=== PATIENT | female | born 1945 | race Caucasian/White ===

== ENCOUNTER 2016-07-18 19:37 | Emergency (ER) | payer OTHER, MEDICARE ==
[2016-07-18 20:00] VITALS: TEMP 98.6; O2SAT 94
--- NOTE | 2016-07-18 20:01 | UCPHY ---
H & P Patient Type: New HPI/ROS: CHIEF COMPLAINT: Diarrhea, abdominal bloating, N/V. HISTORY OF PRESENT ILLNESS: The patient is a 71-year-old female with a history of atrial fibrillation on anticoagulants that some times give her a little loose stool. Presents with diarrhea, nausea, and abdominal bloating since Monday (4th day now). Really no pain per se. She vomited for the first 12 hours of symptoms but not since, not really nauseated either. She is still having an episode of diarrhea every time she eats , be it liquids or solids. She denies bloody or black stool, though anus is raw and sees streaks of blood on the tissue.. She denies abdominal pain, fever, urinary symptoms. No BRBPR or black stools. She is anticoagulated on Eliquis. She does note having a longer-lasting afib episode last week than usual. She has not taken antibiotics in the last 3 months. Though thinks she may hav done so 4-5 months ago. No known exposure. No travel No surgery No hospitalizations No prior C. Diff No bad water or food sources. REVIEW OF SYSTEMS: Constitutional: No fever, no chills. Eyes: No diplopia, feels a little weak at times, no feeling faint or tunnel vision. ENT: No sore throat. Cardiovascular: No chest pain, no palpitations. Respiratory: No cough, no shortness of breath, no wheezing. Gastrointestinal: As above. Genitourinary: No hematuria or frequency. Musculoskeletal: No back pain. Skin: No rashes. Neurological: No headache. 10 point ROS otherwise negative Past Medical/Surgical History: Atrial fibrillation, diabetes, macular degeneration, hypertension. Social History: Nonsmoker. Smoking Status: Never smoked Physical Exam: General Appearance: Alert, no distress. Afebrile. Normal phonation. No respiratory distress. Eyes: Pupils equal and round no pallor or injection. No icterus ENT, Mouth: Mucous membranes moist. Pharynx not erythematous and without exudate. TM Clear. Neck: No adenopathy. Supple. No JVD. Trachea in midline. Respiratory: There are no retractions, lungs are clear to auscultation. Cardiovascular: Regular rate and rhythm. Abdomen: Soft and nontender, no masses, bowel sounds normal. Femoral pulses equal. Neurological: Ox3. No motor weakness. Sensation intact. Gait nl. Skin: Warm and dry, no rashes. Musculoskeletal: No joint swelling. Extremities: No edema. Homans sign negative. No cords. Psychiatric: Patient is oriented X 3, there is no agitation Constitutional: Initial Vital Signs Temperature (C) 37 C 07/18/16 19:57 Heart Rate 77 07/18/16 19:57 Respiratory Rate 18 07/18/16 19:57 Blood Pressure 134/60 H 07/18/16 19:57 O2 Sat (%) 94 07/18/16 19:57 O2 Delivery Mode Room Air Allergies/Adverse Reactions: ciprofloxacin [From Cipro] Allergy (Verified 08/29/11 19:14) ciprofloxacin HCl [From Cipro] Allergy (Verified 08/29/11 19:14) nitrofurantoin [From Macrobid] Allergy (Verified 08/29/11 19:13) nitrofurantoin macrocrystalline [From Macrobid] Allergy (Verified 08/29/11 19:13 ) Penicillins Allergy (Verified 08/29/11 19:13) CONTRAST DYE Allergy (Uncoded 08/29/11 19:14) Home Medications: Medication Instructions Recorded AMLODIPINE BESYLATE/BENAZEPRIL 1 each PO DAILY 08/29/11 [Lotrel 10-20 mg] Metoprolol Succinate 100 mg PO 08/29/11 Rosuvastatin Calcium [Crestor] 10 mg PO 08/29/11 Dronedarone HCl [Multaq 400 mg (*)] 07/18/16 Eliquis 07/18/16 Hydrochlorothiazide 07/18/16 Medical Decision Making - Diagnostics EKG Interpretation: The 12 lead EKG was interpreted by myself. See hard copy and/or "tracemaster" electronic copy for interpretation. Sinus rhythm rate 70. Nonspecific changes V4 -V6. ED Course/Re-evaluation: 71-year-old female presents with 3 days of diarrhea and abdominal bloating. She admits associated nausea and had vomiting for the first 12 hours. Her exam is benign. She has no abdominal pain, though mild tenderness in RUQ. She denies fever, cough, shortness of breath, chest pain. I feel this probably represents a viral diarrheal illness. We will check blood work for electrolyte abnormalities secondary to dehydration. An IV was established and labs ordered. Plan for rehydration with IV fluids for volume depletion. EKG obtained to check QT and other intervals.. I reviewed the patient's laboratory studies. AST and ALT mildly elevated. WBC normal. 2227: I spoke to the patient's nurse who performed a rectal exam. She reports the patient has an inflamed and bleeding hemorrhoid. Occult blood on stool neg = pt OK to take Immodium. 2233: Reassessed patient. We discussed laboratory results so far. She is feeling better but is still feeling bloated. She understands that she needs to continue drinking fluids. No indication for CT at this time, I do not think this represent ischemic bowel or meseneteri ischemia or diverticulitis. Differential Diagnosis: DDX includes, not limited to: Divericulitis, mesenteric ischemia, malabsorption syndrome, viral illness, bacterial dysentery, GI Bleed. - Data Points Laboratory Results: Laboratory Results 07/18/16 20:40 07/18/16 20:40 Microbiology Results: MICROBIOLOGY 07/18/16 22:40 Urine,Clean Catch Urine Culture - Preliminary Medications Given: Discontinued Medications Sodium Chloride (Ns) 1,000 mls @ 0 mls/hr IV ONCE ONE PRN Reason: As Directed Stop: 07/18/16 20:04 Last Admin: 07/18/16 20:50 Dose: 1,000 mls Departure - Departure Disposition: Home, Routine, Self-Care Clinical Impression: Diarrhea Qualifiers: Diarrhea type: presumed infectious Qualified Code(s): A09 - Infectious gastroenteritis and colitis, unspecified Condition: Good Instructions: Acute Diarrhea (ED) Additional Instructions: Follow up with your primary care provider for reevaluation. Recheck in 2 days Drink plenty of fluids, especially electrolyte drinks such as Gatorade. Advance diet as tolerated - toast and eggs are a good start as well as juice It is OK to take IMMODIUM as per the package Return for any serious worsening of condition. Referrals: INGRID REESE [Primary Care Provider] - 1-2 days without fail - PQRS PQRS Measurement: 134: Depression screening and followup, PRIME MD-PHQ2 (12 years and older) Over the last 2 weeks, how often have you been bothered by any of the following problems? 1. Feeling down, depressed, or hopeless? 2. Little interest or pleasure in doing things? [Patient answered no to both 1 and 2] [Patient answered yes to at least 1, referred to PCP for further evaluation.] [Not done because] [altered mental status] [patient refused] [critically ill.] 130: Documentation of medications. [Reviewed all patient medications, doses, route and frequency.] [Unable to obtain meds due to] [critical illness] [altered mental status] [ patient did not know]. 226: Do you smoke? [No.] [Yes, counseled to stop.] 47: 65 and older: Advanced care planning. Patient designates surrogate decision maker as [parent] [spouse] [ ]. [Patient refused.] [Patient has advanced directive.] 51: 18 years old and older with diagnosis of COPD, spirometry performance. [Patient has no history of COPD] [Spirometry not performed; equipment not available.] 52: 18 years old and older with COPD and symptoms of COPD or FEV1<60% predicted prescribed a B Agonist. [Patient has no history of COPD] [Spirometry not performed; equipment not available.] Report Scribed for: Tripp Cosby Report Scribed by: Merritt Katz Date of Report: 07/18/16 Time of Report: 20:01
[2016-07-18] MEDS ORDERED: NS 1,000 ML IV ONE (20:03)
--- NOTE | 2016-07-18 20:29 | CPEKG ---
Heart Rate: 70 RR Interval: 857 P-R Interval: 200 QRSD Interval: 84 QT Interval: 436 QTC Interval: 471 P Dublin: 60 QRS Dublin: 20 T Wave Dublin: -14 EKG Severity - BORDERLINE ECG - EKG Impression: SINUS RHYTHM EKG Impression: BORDERLINE T ABNORMALITIES, DIFFUSE LEADS Electronically Signed By: Tripp Cosby 19-Jul-2016 00:24:16
[2016-07-18 21:36] LABS: ALANINE AMINOTRANSFERASE 67 IU/L (9-52); ALBUMIN 4.1 g/dL (3.5-5.0); ALKALINE PHOSPHATASE 73 IU/L (38-126); ANION GAP 18 mEq/L (8-16); ASPARTATE AMINOTRANSFERASE 90 IU/L (14-46); BILIRUBIN,TOTAL 0.9 mg/dL (0.1-1.4); BILIRUBIN-CONJUGATED 0.3 mg/dL (0.0-0.5); BILIRUBIN-UNCONJUGATED 0.6 mg/dL (0.0-1.1); CALCIUM 8.6 mg/dL (8.5-10.4); CARBON DIOXIDE 24 mEq/l (22-31); CHLORIDE 98 mEq/L (97-110); CREATININE 0.9 mg/dL (0.6-1.0); GLOMERULAR FILTRATION RATE > 60; GLUCOSE 130 mg/dL (70-100); POTASSIUM 3.4 mEq/L (3.5-5.2); SODIUM 140 mEq/L (134-144); TOTAL PROTEIN 7.9 g/dL (6.3-8.2)
[2016-07-18 21:37] LABS: % IMMATURE GRANULYOCYTES 0.2 % (0.0-1.1); ABSOLUTE IMMATURE GRANULOCYTES 0.01 10^3/uL (0.00-0.10); ADD DIFF? NO; ADD MORPH? NO; ADD SCAN? NO; ATYPICAL LYMPHOCYTE FLAG 10 (0-99); FRAGMENT RBC FLAG 0 (0-99); HEMATOCRIT 46.8 % (38.0-47.0); HEMOGLOBIN 16.1 g/dL (12.6-16.3); LEFT SHIFT FLG 0 (0-99); LIPEMIA HEMOLYSIS FLAG 90 (0-99); MEAN CELL HEMOGLOBIN 29.7 pg (27.9-34.1); MEAN CELL HEMOGLOBIN CONCENTR. 34.4 g/dL (32.4-36.7); MEAN CELL VOLUME 86.2 fL (81.5-99.8); MEAN PLATELET VOLUME 12.4 fL (8.7-11.7); PLATELET CLUMPS FLAG 0 (0-99); PLATELET COUNT 207 10^3/uL (150-400); RED BLOOD CELL COUNT 5.43 10^6/uL (4.18-5.33); RED CELL DISTRIBUTION WIDTH 12.3 % (11.5-15.2)
[2016-07-18 22:11] LABS: COLOR YELLOW; LEUKOCYTE ESTERASE,URINE NEGATIVE (NEGATIVE); NITRITE,URINE NEGATIVE (NEGATIVE)
[2016-07-18 22:39] LABS: BACTERIA 2+ /hpf (NONE SEEN); HYALINE CASTS 50-182 /lpf (0-1); MUCUS 3+ /lpf (NONE-1+)
[2016-07-18 23:24] VITALS: BP 128/72; PULSE 76; RESP 14
== END 2016-07-18 23:15 | disposition home or self-care (01) ==
LOC: CED 19:37
DX: A09 Infectious gastroenteritis and colitis, unspecified (principal); I48.91 Unspecified atrial fibrillation; E11.9 Type 2 diabetes mellitus without complications; I10 Essential (primary) hypertension; H35.30 Unspecified macular degeneration; Z79.01 Long term (current) use of anticoagulants
CPT/HCPCS: 93005; 96360; G0463; 80048-PO; 80076-PO; 81003-PO; 81015-PO; 82270-PO; 83605-PO; 83690-PO; 85025-PO; 93010-PO; 96361-PO; 99203-PO

== ENCOUNTER → 2016-12-02 | Outpatient (CLI) | payer OTHER, MEDICARE | LOC: BHFA 14:00 | PROVIDERS: ATTEND Internal Medicine Interventional Cardiology | DX: Z01.810 Encounter for preprocedural cardiovascular examination (principal); I25.10 Atherosclerotic heart disease of native coronary artery without angina pectoris | CPT/HCPCS: 78452; 93017; A9500; J2785 ==

== ENCOUNTER 2016-12-14 05:39 | Inpatient (IN) | payer OTHER, MEDICARE ==
[2016-12-14] MEDS: ACETAMINOPHEN 325 MG TAB PO SCH ×3 (00:05→17:35)
[~2016-12-14 05:39] MED LIST: TRANEXAMIC ACID 1,000 MG in NS 100 ML IV ONE
[2016-12-14] MEDS ORDERED: ceFAZolin 2 GM/DEXTROSE 100 ML IV ONE (05:48)
[2016-12-14] MEDS ORDERED: TRANEXAMIC ACID 1,000 MG in NS 100 ML IV ONE (06:00)
[2016-12-14] MEDS ORDERED: ROPIVACAINE 0.2% 80 MG, EPINEPHrine 0.2 MG, KETOROLAC TROMETHAMINE 30 MG, morphINE 10 M... IU ONE (06:00)
[2016-12-14] MEDS ORDERED: LIDOCAINE 1% 2 ML INJ ID PRN (06:13)
[2016-12-14] MEDS ORDERED: LR 1,000 ML IV ONE (06:13)
[2016-12-14] MEDS ORDERED: CLINDAMYCIN 600 MG/DEXTROSE 50 ML IV ONE (07:26)
--- NOTE | 2016-12-14 07:41 | PDANEPAE ---
ANE History of Present Illness Knee OA for total knee ANE Past Medical History - Cardiovascular History Hx Hypertension: Yes Hx Arrhythmias: Yes Hx Chest Pain: No Hx Coronary Artery / Peripheral Vascular Disease: Yes Hx CHF / Valvular Disease: No Hx Palpitations: No Cardiovascular History Comment: htn. afib. cad. high chol. was seeing Monik Smith at [facility] with Dr. Stern but has appointment set up with [facility] 11/17/16 to establish care there - Pulmonary History Hx COPD: No Hx Asthma/Reactive Airway Disease: No Hx Recent Upper Respiratory Infection: No Hx Oxygen in Use at Home: No Hx Sleep Apnea: No Sleep Apnea Screening Result - Last Documented: Negative - Neurologic History Hx Cerebrovascular Accident: No Hx Seizures: No Hx Dementia: No - Endocrine History Hx Diabetes: Yes Endocrine History Comment: type 2- diet controlled - Renal History Hx Renal Disorders: Yes Renal History Comment: hx of bladder infections. decreased renal function - Liver History Hx Hepatic Disorders: No - Neurological & Psychiatric Hx Hx Neurological and Psychiatric Disorders: No - Cancer History Hx Cancer: Yes Cancer History Comment: skin ca. ovarian ca with removal of ovaries, fallopian tubes - Congenital Disorder History Hx Congenital Disorders: No - GI History Hx Gastrointestinal Disorders: Yes Gastrointestinal History Comment: occ diarrhea from medications - Other Health History Other Health History: wears bilateral hearing aides. wears glasses - Chronic Pain History Chronic Pain: Yes (right knee, right ankle) - Surgical History Prior Surgeries: bilateral cataracts. bilateral trigger finger surgeries. bilateral carpal tunnel surgeries. partial hysterectomy 1974. then she had to have ovaries removed later d/t cancer. eye lid surgery. right ankle surgery x3. wisdom teeth. gum surgery. growth removed on face ANE Review of Systems Review of Systems: - Exercise capacity METS (RN): 4 METS - Systems Cardiac: Reports: irregular heart rate (Pt went into a-fib last PM. She contacted cardiology and was advised to take metroprol. She is in a-fib this morning. Cardiology consulted.) ANE Patient History - Allergies Allergies/Adverse Reactions: Iodinated Contrast- Oral and IV Dye Allergy (Severe, Verified 11/11/16 13:10) Swelling/neck,face,throat nitrofurantoin [From Macrobid] Allergy (Severe, Verified 11/11/16 13:10) Swelling/neck,face,throat Penicillins Allergy (Severe, Verified 11/11/16 13:10) Swelling/neck,face,throat ciprofloxacin [From Cipro] Allergy (Unknown, Verified 11/11/16 13:10) Other-Enter Comments - Home Medications Home medications: home medication list seen and reviewed Home Medications: Amlodipine Besylate/Benazepril [Amlodipine-Benazepril 10-20 mg] 1 each PO DAILY 11/07/16 [Last Taken 12/13/16 15:00] Apixaban [Eliquis] 5 mg PO BID 11/07/16 [Last Taken 12/11/16] C/E/Zn/Cu/OM3/DHA/EPA/LUT/ZEAX [Preservision Areds 2 Softgel] 1 each PO DAILY [Last Taken 12/04/16] Carboxymethylcellulos/Glycerin [Refresh Optive Eye Drops] 1 drop EACHEYE Q2 PRN 11/07/16 [Last Taken 12/14/16 06:00] Cholecalciferol Vit D3 [Vitamin D3 2000 units tab (OTC)] 2,000 units PO DAILY [Last Taken 12/04/16] Dronedarone HCl [Multaq 400 mg (*)] 400 mg PO BID 11/07/16 [Last Taken 12/14/16 02:30] Herbals/Supplements -Info Only 1 ea PO DAILY 11/07/16 [Last Taken 12/04/16] Hydrochlorothiazide [HCTZ (*)] 12.5 mg PO DAILY 11/07/16 [Last Taken 12/13/16 15 :00] Methyl Salicylate/Menth/Camph [Salonpas Large Patch] 1 each TP DAILY PRN [Last Taken Unknown] Metoprolol Succinate Xr [Toprol Xl 100 mg (*)] 50 mg PO DAILY 11/07/16 [Last Taken 12/13/16 15:00] Metoprolol Succinate Xr [Toprol Xl 50 mg (*)] 50 mg PO DAILY PRN 11/07/16 [Last Taken 12/13/16 19:00] Multivitamins [Multivitamin (*)] 1 each PO DAILY 11/07/16 [Last Taken 12/04/16] Rosuvastatin Calcium [Crestor 20mg (*)] 20 mg PO HS 11/07/16 [Last Taken 03:00] Salonpas Cream 1 scooby TP DAILY PRN 11/07/16 [Last Taken Unknown] Sodium Chloride 5% [Maged-128 5% (*)] 1 scooby EACHEYE HS 11/07/16 [Last Taken 12/14 06:00] Vitamin B Complex [B Complex] 1 each PO DAILY 11/07/16 [Last Taken 12/04/16] - NPO status NPO Since - Liquids (Date): 12/13/16 NPO Since - Liquids (Time): 23:00 NPO Since - Solids (Date): 12/13/16 NPO Since - Solids (Time): 23:00 - Smoking Hx Smoking Status: Never smoked - Family Anes Hx Family Hx Anesthesia Complications: none ANE Labs/Vital Signs - Vital Signs Blood Pressure: 130/69 Heart Rate: 68 Respiratory Rate: 16 O2 Sat (%): 92 Height: 160.02 cm Weight: 78.018 kg ANE Physical Exam - Airway Neck exam: FROM Mallampati Score: Class 2 Mouth exam: normal dental/mouth exam - Pulmonary Pulmonary: no respiratory distress - Cardiovascular Cardiovascular: irregularly irregular (Currently in a-fib) ANE Anesthesia Plan Anesthesia Plan: MAC (After considerable discussion with cardiology, pt and family everyone is in agreement with proceeding and restarting anticoagulation post-op.), spinal
[2016-12-14] MEDS ORDERED: MIDAZOLAM 2 MG/2 ML VIAL IVP ONE (07:49)
[2016-12-14] MEDS ORDERED: ceFAZolin 1 GM/5 ML SYR ONE (07:52)
--- NOTE | 2016-12-14 07:56 | PDHPUP ---
History & Physical Update H&P update statement: This history and physical update is based on an assessment of the patient which was completed after admission or registration (within 24 hours), but prior to the surgery/procedure. H&P update: H&P reviewed & patient examined, no change in patient's condition since H&P completed
[2016-12-14] MEDS ORDERED: LIDOCAINE 2% 5 ML SDV ONE ×2 (08:01→09:18)
[2016-12-14] MEDS ORDERED: PROPOFOL 200 MG/20 ML VIAL ONE (08:01)
[2016-12-14] MEDS ORDERED: fentaNYL 100 MCG/2 ML INJ ONE (08:40)
[2016-12-14] MEDS ORDERED: MIDAZOLAM 2 MG/2 ML VIAL ONE (08:48)
[2016-12-14] MEDS ORDERED: fentaNYL 100 MCG/2 ML INJ IVP PRN (11:06)
[2016-12-14] MEDS ORDERED: NALOXONE HCL 0.4 MG/ML INJ IVP PRN (11:06)
[2016-12-14] MEDS ORDERED: ONDANSETRON 4 MG/2 ML VIAL IVP PRN (11:06)
[2016-12-14] MEDS ORDERED: PHARMACY PAIN CONSULT 1 EA MISC PRN (11:22)
[2016-12-14] MEDS ORDERED: BISACODYL 10 MG SUPP PR PRN (11:22)
[2016-12-14] MEDS ORDERED: TEMAZEPAM 15 MG CAP PO PRN (11:22)
[2016-12-14] MEDS ORDERED: METOCLOPRAMIDE 10 MG/2 ML VIAL IVP PRN (11:22)
[2016-12-14] MEDS ORDERED: LACTULOSE 20 GM/30 ML UDCUP PO PRN (11:22)
[2016-12-14] MEDS ORDERED: diphenhydrAMINE 25 MG CAP PO PRN (11:22)
[2016-12-14] MEDS ORDERED: DIPHENOXYLATE/ATROPINE LOMOTIL 1 TAB PO PRN (11:22)
[2016-12-14] MEDS ORDERED: POLYETHYLENE GLYCOL 3350 17 GM PKT PO PRN (11:22)
[2016-12-14] MEDS ORDERED: MAGNESIUM HYDROXIDE 30 ML UDCUP PO PRN (11:22)
[2016-12-14] MEDS ORDERED: PROMETHAZINE HCL 25 MG SUPPR PR PRN (11:22)
--- NOTE | 2016-12-14 11:22 | POSTOPPROG ---
Post Op Note Date of Operation: 12/14/16 Surgeon: Bruce Short Security Director: May Medrano PA-C Anesthesiologist: Dr. Vazquez Anesthesia: Spinal Pre-op Diagnosis: R knee osteoarthritis Post-op Diagnosis: R knee osteoarthritis Procedure: R TKA Findings: See full dictation Inf/Abcess present in the surg proc area at time of surgery?: No Depth: Organ Space EBL: Minimal Drains: Yefri Isaac
[2016-12-14] MEDS ORDERED: CARBOXYMETHYLCELLULOS EACHEYE PRN ×2 (11:30→12:34)
[2016-12-14] MEDS ORDERED: [UNRECOGNIZED DRUG - OTHER] EACHEYE PRN ×2 (11:30→12:34)
[2016-12-14] MEDS ORDERED: GLYCERIN EACHEYE PRN ×2 (11:30→12:34)
[2016-12-14] MEDS ORDERED: NS 1,000 ML IV SCH (11:30)
--- NOTE | 2016-12-14 11:32 | POSTANESTH ---
Post Anesthetic Evaluation Cardiovascular Status: Normal, Stable Respiratory Status: Normal, Stable Level of Consciousness/Mental Status: Can Participate in Eval Pain Control: Adequate, Prn Tx Ordered Nausea/Vomiting Control: Adequate, Prn Tx Ordered Complications Possibly Related to Anesthesia: None Noted (Adductor cannal block done in recovery.)
--- NOTE | 2016-12-14 11:46 | GOP ---
[f rep st] OPERATIVE REPORT DATE OF OPERATION: SURGEON: Bruce Short MD MARINE PLUMBER: May Medrano PA-C. ANESTHESIA: Spinal. PREOPERATIVE DIAGNOSIS: Right knee osteoarthritis. POSTOPERATIVE DIAGNOSIS: Right knee osteoarthritis. PROCEDURE PERFORMED: Right total knee arthroplasty. FINDINGS: DESCRIPTION OF PROCEDURE: Patient taken to the operative room, administered spinal anesthesia, place d in the supine position. The right lower extremity was prepped and draped in normal sterile fashion . Esmarch exam was performed followed by elevation of thigh cuff to 275 mmHg pressure. Midline inci nga was made through dermal subcutaneous tissues. Medial parapatellar incision was made. The esposito la was reflected laterally. The anterior fat pad and anterior portion of the medial and lateral meni sci were excised. The patella was sized and an 8 mm cup was selected. This was made with the oscill ating saw and guide. Three drill lugs were drilled for the patella. A size 29 patella was put in pl emelia. The distal femur was exposed. The distal femoral guide was placed in the distal femur. Two dr ill lugs were drilled down to subchondral bone in medial and lateral femoral condyles. The distal fe moral cuts were then made with a reciprocating saw and then oscillating saw x2. The proximal tibia w as exposed. Retractors were put in position. The articular surface was taken down to subchondral kurtis ne with ring curette on the tibia. The tibial cutting guide was placed in the tibia and made paralle l to the anterior tibia. A 0-degree posterior slope cut was then made with the oscillating saw. The segment of bone was then removed. The posterior portion of medial and menisci were further excised. Our flexion extension gaps were assessed and felt to be reasonable. The distal femoral AP cutting block was then placed in the distal femur on the 2 femoral pins. We used the Feeler gauge anteriorly to assess our cut. We felt we were a little anterior. We therefore position this anterior cutting block just a little more posteriorly. The Feeler gauge was placed in the tibia. Our anterior femora l cut was then made with the oscillating saw. Our posterior condylar cuts were then made with the os cillating saw. The anterior chamfer cut was then made with the oscillating saw. The trial implants were put in position. The knee was felt to be slightly tight in flexion and extension. We therefore put our cutting block on the back on the tibia and re-planed the tibia down another millimeter or so . The posterior cruciate block was placed on the femur. Our notch cut was then made with the vertic al cuts made with the reciprocating saw and the distal cut made with the oscillating saw. This wafer of bone was removed. The trial implants were put in position. Knee was put through flexion, extens ion, and arc of motion. We felt that we had full extension without significant tightening or lift of f in flexion. The real implants were opened. Thorough lavage performed of all surfaces. The tibia was cemented into place followed by the femur followed by the patella. All excess cement was removed . Thorough lavage performed with normal saline. The tourniquet was let down. Approximately 30 cc o f our cocktail solution was infiltrated deeply and then the subcutaneous tissues. The medial retinac ular tissue was closed with a #1 Vicryl suture followed by closure of the subcutaneous tissue with 2- 0 Vicryl suture followed by closure of the dermis with abraham. Sterile compression dressing applied . Patient tolerated procedure well, was transferred back to recovery room in stable condition. Ther e were no operative complications. COMPLICATIONS: None. /[id number]/MODL
[2016-12-14] MEDS ORDERED: CARBOXYMETHYLCELLULOSE 1% 0.4 ML DROPERETTE EACHEYE PRN (12:34)
[2016-12-14] MEDS: traMADol 50 MG TAB PO PRN ×2 (13:01→20:32)
[2016-12-14] MEDS ORDERED: APIXABAN 5 MG TAB PO SCH (15:30)
[2016-12-14] MEDS ORDERED: SALONPAS TP PRN (15:40)
[2016-12-14] MEDS ORDERED: D50W 25 GM/50 ML SYR IVP PRN (15:45)
[2016-12-14] MEDS ORDERED: METOPROLOL SUCCINATE XR 100 MG TAB PO SCH (15:45)
[2016-12-14] MEDS: METOPROLOL SUCCINATE XR 50 MG TAB PO SCH (16:21)
[2016-12-14] MEDS: CLINDAMYCIN 600 MG/DEXTROSE 50 ML IV SCH ×2 (16:21→23:43)
[2016-12-14] MEDS ORDERED: DRONEDARONE HCL 400 MG TAB PO SCH ×2 (16:30→21:00)
--- NOTE | 2016-12-14 16:38 | PDCARPN ---
Cardiology Progress Note Chief Complaint: Patient reports she feeling fatigue after anesthesia. Assessment/Plan: Assessment: Please see my office note as our cardiology consultation dated 11/17/2016. Patient is a 77-year-old female with significant cardiac history that includes subclinical CAD based off of cardiac calcium scoring, hypertension, hyperlipidemia, paroxysmal atrial fibrillation. Patient admited today 2016 for elective right TKA to be done by Dr. Short. It was found on admission that she was atrial fibrillation with well rate control. Patient reports she thinks this happen during the night. She does admit fatigue symptoms, but denies of any symptoms suggesting of ischemia. Denies of any symptoms suggesting of heart failure. Her most recent echocardiogram was done April of 2014 showing normal LV size and systolic function, normal wall motion. EF was estimated at 64%, she is noted to have mildly dilated left atrium sclerotic aortic root, mild TR. More recently, she has underwent MPI study on 12/02/2016 showing no signs of ischemia or infarction, normal LV wall motion, EF 69%. After evaluating patient, and speaking with Dr. Cardenas and anesthesia, felt patient was appropriate to still continue with surgery. Seeing her postoperatively now, her pulse is regular, reviewing electrocardiogram strips in PACU, she converted back to sinus rhythm. She reports no chest pressure or pain. Denies of any shortness of breath or lightheadedness. Her pulse is regular, lungs are clear to auscultation. Plan: 1. Paroxysmal atrial fibrillation: Patient currently in sinus rhythm, the postoperatively, her metoprolol succinate and Multaq and been restarted. Will have her be monitored on continuous cardiac monitoring tonight, to assure no further episodes of AFib. Repeat 12 lead electrocardiogram in the morning. Will also recheck her electrolytes, magnesium, and TSH level with a.m. draw (H and H already order). She has also been resumed on her Eliquis by surgery. 2. CAD: Patient have non clinical CAD based off cardiac calcium scoring. Denies of any chest pressure or pain or symptoms suggesting of ischemia. She has had a recent MPI study showing no signs of ischemia or infarction. She is currently not on aspirin due to being on Eliquis. She is on secondary risk prevention with Crestor, which has been resumed after surgery 3. Hypertension: BP you appears to be well controlled, she has been restarted on home medications 4. Hyperlipidemia: restarted on home statin therapy 5. Right knee osteoarthritis: Status post R TKA. started PT, per surgeries orders. 12/14/16 16:35 Subjective: Patient denies of any chest pain, shortness of breath, palpitations, lightheadedness, orthopnea or PND. Reviewed/Discussed With: family (Patient's sister), other (Dr. Mcknight) Objective: Vital Signs (8 Hrs) Temp Pulse Resp BP Pulse Ox 12/14/16 16:07 36.8 C 63 16 134/58 H 99 12/14/16 14:25 64 16 119/54 L 98 12/14/16 13:22 36.6 C 63 16 126/58 H 98 12/14/16 12:28 36.4 C 63 16 139/60 H 99 12/14/16 12:01 15 142/60 H 12/14/16 11:53 36.7 C 64 18 126/62 H 95 12/14/16 11:51 13 143/56 H 97 12/14/16 11:46 18 131/58 H 96 12/14/16 11:45 13 94 12/14/16 11:41 14 126/62 H 95 12/14/16 11:40 20 91 L 12/14/16 11:36 19 125/57 H 90 L 12/14/16 11:31 16 128/59 H 98 12/14/16 11:26 13 125/56 H 96 12/14/16 11:21 14 119/52 L 95 12/14/16 11:19 14 124/54 H 96 12/14/16 11:17 36.6 C 12/14/16 11:06 68 16 130/69 H 92 Intake/Output (24 Hrs) 12/13/16 12/14/16 12/15/16 05:59 05:59 05:59 Intake Total 1630 Output Total 110 Balance 1520 Intake: Oral (ml) 30 IV Intake (ml) 1550 IV Infused (ml) 50 Clindamycin 600 mg/ 50 Dextrose 50 ml @ 100 mls/ hr IV Q8 [facility] Rx#: [id number] Output: Urine (ml) 100 Bedside Commode 100 Estimated Blood Loss (ml) 10 Other: Weight 78.018 kg Result Diagrams: 12/15/16 05:02 12/15/16 05:02 - Physical Exam Constitutional: WDWN, no apparent distress, obese Ears, Nose, Mouth, Throat: moist mucous membranes Cardiovascular: regular rate and rhythm, no murmurs, No jugular vein distention , No carotid bruit Peripheral Pulses: 2+: carotid (R), carotid (L) Respiratory: clear to auscultate bilat, no crackles, no wheezes Gastrointestinal: normoactive bowel sounds Skin: warm, other (Dressing to right lower extremity clean dry and intact.) Neurologic: AAOx3 Psychiatric: cooperative, interactive, following commands ICD10 Worksheet Patient Problems: Problems Problem Status Onset Diarrhea Acute
[2016-12-14] MEDS ORDERED: AMLODIPINE BESYLATE 5/BENAZEPRIL 10MG 1 EACH CAP PO SCH (17:15)
[2016-12-14] MEDS: INSULIN LISPRO 100 UNIT/ML SC SCH (18:03)
[2016-12-14] MEDS: SENNOSIDES/DOCUSATE SODIUM TAB PO SCH (20:32)
[2016-12-14] MEDS: SODIUM CHLORIDE 5% 3.5 GM OPHT.OINT EACHEYE SCH (20:34)
[2016-12-14] MEDS: FAMOTIDINE 20 MG TAB PO SCH (20:34)
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
[2016-12-15] MEDS: APIXABAN 5 MG TAB PO SCH ×2 (02:17→14:20)
[2016-12-15] MEDS: ROSUVASTATIN CALCIUM 20 MG TAB PO SCH (02:17)
[2016-12-15] MEDS ORDERED: DRONEDARONE HCL 400 MG TAB PO SCH (04:00)
[2016-12-15 05:42] LABS: HEMATOCRIT 30.4 % (38.0-47.0)
[2016-12-15 05:54] LABS: ANION GAP 6 mEq/L (8-16); CALCIUM 7.8 mg/dL (8.5-10.4); CARBON DIOXIDE 25 mEq/l (22-31); CHLORIDE 99 mEq/L (97-110); CREATININE 0.9 mg/dL (0.6-1.0); GLOMERULAR FILTRATION RATE > 60; GLUCOSE 162 mg/dL (70-100); MAGNESIUM 1.5 mg/dL (1.6-2.3); POTASSIUM 4.1 mEq/L (3.5-5.2); SODIUM 130 mEq/L (134-144)
[2016-12-15] MEDS: traMADol 50 MG TAB PO PRN ×2 (05:58→18:25)
[2016-12-15] MEDS: CLINDAMYCIN 600 MG/DEXTROSE 50 ML IV SCH (05:59)
[2016-12-15] MEDS: ACETAMINOPHEN 325 MG TAB PO SCH ×3 (06:10→18:25)
--- NOTE | 2016-12-15 07:36 | SOAPPROG ---
SOAP Progress Note Assessment/Plan: Assessment/Plan: s/p R TKA POD#1 - Continue pain management, encourage PO - PT/OT - Eliquis restarted last night for anti-coagulation - SCDs/TEDs for mechanical prophylaxis - Continue antibiotic prophylaxis until course is finished - Monitor drain output - Appreciate Hospitalist and [employer] [facility] input and evaluation - Discharge pending PT/OT clearance, as well as the medicine team 12/15/16 07:33 Subjective: Pt states she is feeling well and pain has been well controlled. Pt denies fever , chills, chest pain, SOB, abdominal pain, N/V/D, numbness, tingling and calf pain. Objective: Vital Signs Temp Pulse Resp BP Pulse Ox 37.1 C 73 18 118/58 L 96 12/15/16 04:19 12/15/16 04:19 12/15/16 04:19 12/15/16 04:19 12/15/16 04:19 Laboratory Results 12/15/16 05:02 12/15/16 05:02 12/14/16 12/15/16 12/16/16 05:59 05:59 05:59 Intake Total 2430 Output Total 1310 Balance 1120 Physical Exam - Physical Exam General Appearance: alert, no apparent distress Cardiac/Chest: normal peripheral pulses Skin: normal color, warm/dry, other (Post-operative dressing clean and intact) Extremities: normal inspection, normal capillary refill, swelling (localized swelling R knee), other (Drain in place. Output 200cc), No pedal edema, No calf tenderness, No Rita's sign Neuro/Psych: no motor/sensory deficits, alert, normal mood/affect, oriented x 3 ICD10 Worksheet Patient Problems: Problems Problem Status Onset Diarrhea Acute
[2016-12-15] MEDS: INSULIN LISPRO 100 UNIT/ML SC SCH ×3 (08:08→18:18)
[2016-12-15] MEDS ORDERED: METOPROLOL SUCCINATE XR 50 MG TAB PO PRN (09:00)
--- NOTE | 2016-12-15 09:10 | CPEKG ---
Heart Rate: 65 RR Interval: 923 P-R Interval: 216 QRSD Interval: 86 QT Interval: 456 QTC Interval: 475 P [place]: 64 QRS [place]: 67 T Wave [place]: 35 EKG Severity - NORMAL ECG - EKG Impression: SINUS RHYTHM Electronically Signed By: Pierre Keene 15-Dec-2016 09:30:44
[2016-12-15] MEDS: PRESERVISION AREDS2 FORMULA EYE VIT 1 EACH PO SCH (09:46)
[2016-12-15] MEDS ORDERED: MAGNESIUM SULF 1 GM/DEXTROSE 100 ML IV ONE (09:46)
[2016-12-15] MEDS: SENNOSIDES/DOCUSATE SODIUM TAB PO SCH ×2 (09:46→22:23)
[2016-12-15] MEDS: MULTIVITAMINS 1 EACH TAB PO SCH (09:56)
[2016-12-15] MEDS: FAMOTIDINE 20 MG TAB PO SCH ×2 (09:56→22:23)
[2016-12-15] MEDS: HYDROCHLOROTHIAZIDE 25 MG TAB PO SCH ×2 (09:56→14:07)
[2016-12-15] MEDS: oxyCODONE IR 5 MG TAB PO PRN ×2 (09:56→15:42)
[2016-12-15] MEDS: VITAMIN B COMPLEX 1 EA CAP/TAB PO SCH (09:57)
[2016-12-15] MEDS: METOPROLOL SUCCINATE XR 50 MG TAB PO SCH ×2 (09:57→14:12)
--- NOTE | 2016-12-15 10:00 | PDCARPN ---
Cardiology Progress Note Chief Complaint: Patient reports that her right knee is starting to hurt, does get relief with pain management. Assessment/Plan: Assessment: 77-year-old female with significant cardiac history that includes subclinical CAD based off of cardiac calcium scoring, hypertension, hyperlipidemia, paroxysmal atrial fibrillation. Patient admited 12/14/2016 for elective right TKA by Dr. Short. On admission she was in atrial fibrillation with well rate control with no signs of heart failure, or ischemia. Did undergo procedure. Converted back to sinus rhythm during surgery. Her most recent echocardiogram was done April of 2014 showing normal LV size and systolic function, normal wall motion. EF was estimated at 64%, she is noted to have mildly dilated left atrium sclerotic aortic root, mild TR. More recently, she has underwent MPI study on 12/02/2016 showing no signs of ischemia or infarction, normal LV wall motion, EF 69%. Today, continues cardiac monitoring shows patient has remained in sinus rhythm throughout the evening with no arrhythmias pauses noted. 12 lead electrocardiogram shows sinus rhythm no ST or T-wave abnormalities. Laboratory studies do show some postop anemia with H&H 11 and 30.4. Mild hyponatremia with sodium of 130, magnesium 1.5, TSH 0.365. Patient reports no chest pain or symptoms suggestive of ischemia. Denying any shortness of breath. Plan: 1. Paroxysmal atrial fibrillation: Patient currently in sinus rhythm, she has been resumed on home doses of metoprolol succinate and Multaq. She has been restarted on Eliquis by surgery. 2. CAD: Patient have non clinical CAD based off cardiac calcium scoring. She has had a recent MPI study showing no signs of ischemia or infarction. She is currently not on aspirin due to being on Eliquis. She is on secondary risk prevention with Crestor, which has been resumed after surgery 3. Hypertension: BP you appears to be well controlled, she has been restarted on home medications 4. Hyperlipidemia: restarted on home statin therapy 5. Right knee osteoarthritis: Status post R TKA. started PT, per surgeries orders. 6 DM: Being followed by hospital services, hemoglobin A1c currently pending. 7. Low TSH: Patient reports this as it has been normal past. Will have lab to a T3 and T4 level off of am blood draw. If they are fine, would have her follow up with her PCP as an outpatient for further evaluation. 8. The magnesium: Today Mag was 1.5, will have her give 1 g IV this morning. 9. Postop anemia: H&H stable, continue to monitor 10. Hyponatremia: Sodium 130, recommend repeating BMP in a few days, if continued to be low, consideration DC hydrochlorothiazide and fluid restriction. Patient potentially being discharged today, have Tino lab slip in place to her chart to have drawn in the next 2-3 days. Patient potentially being discharged home today, would be fine from cardiac standpoint, she does have a follow-up appointment with our group on January 17 at 2:00 p.m.. She has been told that if she has further episodes of palpitations, chest pressure or shortness for breath, lightheadedness, etc, she is to call our office or return to the hospital. 12/15/16 09:49 Subjective: Patient denies any chest pressure palpitations, shortness of breath, orthopnea, lightheadedness. Reviewed/Discussed With: other (Dr Mcknight) Objective: Vital Signs (8 Hrs) Temp Pulse Resp BP Pulse Ox 12/15/16 07:54 37.3 C 68 16 113/50 L 94 12/15/16 04:19 37.1 C 73 18 118/58 L 96 Intake/Output (24 Hrs) 12/14/16 12/15/16 12/16/16 05:59 05:59 05:59 Intake Total 2430 Output Total 1310 Balance 1120 Intake: Oral (ml) 830 IV Intake (ml) 1550 IV Infused (ml) 50 Clindamycin 600 mg/ 50 Dextrose 50 ml @ 100 mls/ hr IV Q8 [facility] Rx#: [id number] Output: Urine (ml) 1100 Bedside Commode 100 Toilet 1000 Estimated Blood Loss (ml) 10 Hemovac Drain Output (ml) 200 Right Knee Hemovac 200 Other: Weight 78.018 kg Number of Voids Toilet 1 Result Diagrams: 12/15/16 05:02 12/15/16 05:02 - Physical Exam Constitutional: no apparent distress, obese Ears, Nose, Mouth, Throat: moist mucous membranes Cardiovascular: regular rate and rhythm, no murmurs, no rubs, pulses symmetric bilat, No jugular vein distention, No carotid bruit Peripheral Pulses: 1+: dorsalis-pedis (R), dorsalis-pedis (L), 2+: carotid (R), carotid (L) Respiratory: clear to auscultate bilat, no crackles, no wheezes, No reduced air movement, No expiratory wheeze Gastrointestinal: normoactive bowel sounds Skin: no rashes, warm, other (Right knee dressing clean dry and intact.), No no edema (+1 peripheral edema right lower extremity) Neurologic: AAOx3 Psychiatric: cooperative, interactive, following commands ICD10 Worksheet Patient Problems: Problems Problem Status Onset Diarrhea Acute
[2016-12-15] MEDS: DRONEDARONE HCL 400 MG TAB PO SCH (14:13)
[2016-12-15] MEDS: AMLODIPINE BESYLATE 5/BENAZEPRIL 10MG 1 EACH CAP PO SCH (14:20)
--- NOTE | 2016-12-15 15:29 | ASMTCMCOM ---
CM Note CM Note Notes: PT rec home health care vs. SNF, OT rec HHC vs. home. Spoke w pt and sister Ivette reg'd d/c plan of care; pt is agreeable to referral to [facility]. Ivette is visiting from out of state, staying in pt's home for the next 3-4 weeks so she will be able to support pt at home after a d/c from SNF rehab. CM to follow. Date Signed: 12/15/2016 03:28 PM Electronically Signed By:IZAIAH Tafoya
--- NOTE | 2016-12-15 16:18 | HOSPPROG ---
Hospitalist Progress Note Assessment/Plan: 71 yo female followed for medical issues; s/p right knee replacement. NO complaints -CAD: per cardology non clinical CAD based on cardiac calcium scoring. No chest pain or SOB -HTN: Bp in good control -DM: HgbAic is elevated. Patient cannot take metformin due to diarrhea; does not want insulin. Says she will start walking and control her DM with exercise. Here she is receiving SSI -Low TSH: T3 And T4 are normal. Follow as outpatient -low magnesium: replaced and recheck in AM -anemia: post op and stable. will follow -DVT: lovenox 40mg sc daily Disposition -[facility] or [facility] 12/16 Subjective: no complaint; tired this afternoon, no chest pain,SOB, nausea Objective: Vital Signs Temp Pulse Resp BP Pulse Ox 37.2 C 68 16 114/52 L 96 12/15/16 15:23 12/15/16 15:23 12/15/16 15:23 12/15/16 15:23 12/15/16 15:23 Laboratory Results 12/15/16 05:02 12/15/16 05:02 12/14/16 12/15/16 12/16/16 05:59 05:59 05:59 Intake Total 2430 500 Output Total 1310 Balance 1120 500 - Time Spent With Patient Time Spent with Patient: greater than 35 minutes Time Spent with Patient: Greater than 35 minutes spent on this patients care, greater than 50% of time spent counseling, educating, and coordinating care regarding the above mentioned plan. - Pending Discharge Pending Discharge Within 24 Hours: Yes Pending Discharge Date: 12/16/16 Pending Discharge Time: 11:00 - Physical Exam Constitutional: no apparent distress Eyes: PERRL, anicteric sclera Ears, Nose, Mouth, Throat: moist mucous membranes, hearing normal Cardiovascular: regular rate and rhythym, no murmur, rub, or gallop, other (no afib today) Respiratory: no respiratory distress, no rales or rhonchi, clear to auscultation Gastrointestinal: normoactive bowel sounds, soft, non-tender abdomen, no palpable masses Genitourinary: no bladder fullness Skin: warm Musculoskeletal: other (right leg in surgical brace with cooling. skin warm and dry; good cap refill;) Neurologic: AAOx3, CN II-XII Intact Psychiatric: interacting appropriately ICD10 Worksheet Patient Problems: Problems Problem Status Onset Diarrhea Acute
--- NOTE | 2016-12-15 16:19 | ASMTCMCOM ---
CM Note CM Note Notes: Per [facility], pt is accepted for admission when she is medically stable. Date Signed: 12/15/2016 04:19 PM Electronically Signed By:IZAIAH Tafoya
[2016-12-15 17:33] LABS: ALANINE AMINOTRANSFERASE 27 IU/L (9-52); ALBUMIN 3.1 g/dL (3.5-5.0); ALKALINE PHOSPHATASE 40 IU/L (38-126); ANION GAP 7 mEq/L (8-16); ASPARTATE AMINOTRANSFERASE 27 IU/L (14-46); BILIRUBIN,TOTAL 1.2 mg/dL (0.1-1.4); CALCIUM 7.9 mg/dL (8.5-10.4); CARBON DIOXIDE 24 mEq/l (22-31); CHLORIDE 98 mEq/L (97-110); CREATININE 0.8 mg/dL (0.6-1.0); GLOMERULAR FILTRATION RATE > 60; GLUCOSE 188 mg/dL (70-100); POTASSIUM 4.4 mEq/L (3.5-5.2); SODIUM 129 mEq/L (134-144)
[2016-12-15] MEDS: CYCLOBENZAPRINE 10 MG TAB PO PRN (18:25)
[2016-12-15] MEDS: SODIUM CHLORIDE 5% 3.5 GM OPHT.OINT EACHEYE SCH (22:22)
[2016-12-16] MEDS: ACETAMINOPHEN 325 MG TAB PO SCH ×3 (00:17→11:16)
[2016-12-16] MEDS: DRONEDARONE HCL 400 MG TAB PO SCH ×2 (01:44→14:09)
[2016-12-16] MEDS: ROSUVASTATIN CALCIUM 20 MG TAB PO SCH (01:44)
[2016-12-16] MEDS: APIXABAN 5 MG TAB PO SCH ×2 (01:44→14:10)
[2016-12-16] MEDS: traMADol 50 MG TAB PO PRN ×2 (01:45→12:07)
[2016-12-16 05:04] LABS: HEMATOCRIT 27.6 % (38.0-47.0); HEMOGLOBIN 10.4 g/dL (12.6-16.3)
[2016-12-16 05:24] LABS: ALANINE AMINOTRANSFERASE 32 IU/L (9-52); ALKALINE PHOSPHATASE 42 IU/L (38-126); ANION GAP 8 mEq/L (8-16); ASPARTATE AMINOTRANSFERASE 21 IU/L (14-46); BILIRUBIN,TOTAL 1.3 mg/dL (0.1-1.4); CALCIUM 8.1 mg/dL (8.5-10.4); CARBON DIOXIDE 27 mEq/l (22-31); CHLORIDE 97 mEq/L (97-110); CREATININE 0.7 mg/dL (0.6-1.0); GLOMERULAR FILTRATION RATE > 60; GLUCOSE 172 mg/dL (70-100); MAGNESIUM 1.9 mg/dL (1.6-2.3); POTASSIUM 3.9 mEq/L (3.5-5.2); SODIUM 132 mEq/L (134-144); TOTAL PROTEIN 5.7 g/dL (6.3-8.2)
[2016-12-16] MEDS: PRESERVISION AREDS2 FORMULA EYE VIT 1 EACH PO SCH (08:48)
[2016-12-16] MEDS: oxyCODONE IR 5 MG TAB PO PRN (08:48)
[2016-12-16] MEDS: SENNOSIDES/DOCUSATE SODIUM TAB PO SCH (08:49)
[2016-12-16] MEDS: VITAMIN B COMPLEX 1 EA CAP/TAB PO SCH (08:49)
[2016-12-16] MEDS: FAMOTIDINE 20 MG TAB PO SCH (08:49)
[2016-12-16] MEDS: CYCLOBENZAPRINE 10 MG TAB PO PRN (08:49)
[2016-12-16] MEDS: MULTIVITAMINS 1 EACH TAB PO SCH (08:50)
[2016-12-16] MEDS: INSULIN LISPRO 100 UNIT/ML SC SCH ×2 (08:51→12:48)
--- NOTE | 2016-12-16 09:03 | SOAPPROG ---
SOAP Progress Note Assessment/Plan: Assessment/Plan: S/P R TKA POD#2 Continue Pain Management, PO. PT/OT-continue to work on hip and knee ROM Continue Eliquis for anti-coagulation Continue SCD's and FATOUMATA's for mechanical prophylaxis Continue antibiotic course until finished Pt. is cleared to be discharged from an Orthopedic standpoint Awaiting clearance from PT/OT and medicine teams. Pt. would like to return home rather than a rehab facility, Dr. Short has approved if PT in home can be arranged. Subjective: Pt. states that she is feeling well and that her pain has been controlled. She denies fevers, STARR, CP, SOB, abdominal pain, N/V/D, numbness/tingling or calf pain. Objective: Pt. calm cooperative, resting comfortably, in NAD. Skin is warm and dry. Incision is clean and dry, no redness, swelling or warmth. Drain which was still intact was pulled. Gauze was applied under FATOUMATA stocking and Claudio wrap for compression. 12/16/16 08:55 Objective: Vital Signs Temp Pulse Resp BP Pulse Ox 36.3 C 72 24 H 128/55 H 91 L 12/16/16 08:00 12/16/16 08:00 12/16/16 08:00 12/16/16 08:00 12/16/16 08:00 Laboratory Results 12/16/16 04:28 12/16/16 04:28 12/15/16 12/16/16 12/17/16 05:59 05:59 05:59 Intake Total 2430 600 Output Total 1310 15 Balance 1120 585 ICD10 Worksheet Patient Problems: Problems Problem Status Onset Diarrhea Acute
[2016-12-16 11:38] VITALS: RESP 16; TEMP 98.9; O2SAT 91
--- NOTE | 2016-12-16 13:11 | PDIAF ---
- Diagnosis Diagnosis: Right knee osteoarthritis Code Status: Full Code - Medication Management Discharge Medications: Medications to Continue on Transfer Amlodipine Besylate/Benazepril [Amlodipine-Benazepril 10-20 mg] 1 each PO DAILY 11/07/16 [Last Taken 12/13/16 15:00] Apixaban [Eliquis] 5 mg PO BID 11/07/16 [Last Taken 12/11/16] C/E/Zn/Cu/OM3/DHA/EPA/LUT/ZEAX [Preservision Areds 2 Softgel] 1 each PO DAILY [Last Taken 12/04/16] Carboxymethylcellulos/Glycerin [Refresh Optive Eye Drops] 1 drop EACHEYE Q2 PRN 11/07/16 [Last Taken 12/14/16 06:00] Cholecalciferol Vit D3 [Vitamin D3 2000 units tab (OTC)] 2,000 units PO DAILY [Last Taken 12/04/16] Dronedarone HCl [Multaq 400 mg (*)] 400 mg PO BID 11/07/16 [Last Taken 12/14/16 02:30] Herbals/Supplements -Info Only 1 ea PO DAILY 11/07/16 [Last Taken 12/04/16] Hydrochlorothiazide [HCTZ (*)] 12.5 mg PO DAILY 11/07/16 [Last Taken 12/13/16 15 :00] Methyl Salicylate/Menth/Camph [Salonpas Large Patch] 1 each TP DAILY PRN [Last Taken Unknown] Metoprolol Succinate Xr [Toprol Xl 100 mg (*)] 50 mg PO DAILY 11/07/16 [Last Taken 12/13/16 15:00] Metoprolol Succinate Xr [Toprol Xl 50 mg (*)] 50 mg PO DAILY PRN 11/07/16 [Last Taken 12/13/16 19:00] Multivitamins [Multivitamin (*)] 1 each PO DAILY 11/07/16 [Last Taken 12/04/16] Rosuvastatin Calcium [Crestor 20mg (*)] 20 mg PO HS 11/07/16 [Last Taken 03:00] Salonpas Cream 1 scooby TP DAILY PRN 11/07/16 [Last Taken Unknown] Sodium Chloride 5% [Maged-128 5% (*)] 1 scooby EACHEYE HS 11/07/16 [Last Taken 12/14 06:00] Vitamin B Complex [B Complex] 1 each PO DAILY 11/07/16 [Last Taken 12/04/16] Acetaminophen [Tylenol 325mg (*)] 650 mg PO Q6HRS tab 12/15/16 [Last Taken Unknown] oxyCODONE IR [Oxycodone Ir (*)] 5 - 10 mg PO Q3HRS PRN #50 tab 12/15/16 [Last Taken Unknown] Longterm Antibiotics: None Discharge Medications: Refer to the Discharge Home Medication list for PRN reason. - Orders Services needed: Physical Therapy, Occupational Therapy Diet Recommendation: no restrictions on diet Diet Texture: Regular Texture Diet [place]: Not applicable Ever Stockings Discontinue Date: 2 weeks post op Wound Care Instructions: Please see discharge instructions for complete details. Pt is to keep her incision site clean and dry at all times until follow up, and to monitor for signs of infection. Pt may undergo skilled dressing changes PRN, otherwise, she is encouraged to keep her dressings intact until follow up. She is to cover her dressings for showering purposes. Sutures/[place] Site: Please keep clean and dry at all times, monitor for signs of infection. Activity/Weight Bearing Restrictions: Pt is to remain WBAT with assistive devices such as a walker Additional: - Keep your incision site clean, dry and covered for bathing. - Weight bearing as tolerated right lower extremity. - Elevation and ice of the right lower extremity for pain control and swelling. - Compression stockings are to be worn for 2 weeks after surgery. - Physical therapy order was given to you at your pre-operative visit for twice weekly. - Follow-up with Dr. Short 10-14 days after surgery; call the office sooner with any questions or concerns - Follow Up Care Current Providers and Referrals: BARRETT REESE [Other] Navi Luo MD [Medical Doctor] - (January 17 at 2:00 p.m. at [facility]) Bruce Short MD [Medical Doctor] - (Follow-up with Dr. Short in clinic at your first post-operative visit. Call sooner with any questions or concerns.)
--- NOTE | 2016-12-16 14:05 | PDCARPN ---
Cardiology Progress Note Chief Complaint: Patient reporting her right knee is more sore today, requiring more pain medication. Assessment/Plan: Assessment: 77-year-old female with significant cardiac history that includes subclinical CAD based off of cardiac calcium scoring, hypertension, hyperlipidemia, paroxysmal atrial fibrillation. Patient admited 12/14/2016 for elective right TKA by Dr. Short. On admission she was in atrial fibrillation with well rate control with no signs of heart failure, or ischemia. Did undergo procedure. Converted back to sinus rhythm during surgery. Her most recent echocardiogram was done April of 2014 showing normal LV size and systolic function, normal wall motion. EF was estimated at 64%, she is noted to have mildly dilated left atrium sclerotic aortic root, mild TR. More recently, she has underwent MPI study on 12/02/2016 showing no signs of ischemia or infarction, normal LV wall motion, EF 69%. Continuous cardiac monitoring shows patient remains in sinus rhythm. Mild drop in H&H to 10.4/27.6 today. Sodium improved 132. Patient denies of any chest, shortness of breath, palpitations. Is still requiring oxygen therapy. Patient informs me that she is planning to go to longterm facility, [facility] for further rehab. Plan: 1. Paroxysmal atrial fibrillation: Patient currently in sinus rhythm, she has been resumed on home doses of metoprolol succinate and Multaq. She has been restarted on Eliquis by surgery. 2. CAD: Patient have non clinical CAD based off cardiac calcium scoring. She has had a recent MPI study showing no signs of ischemia or infarction. She is currently not on aspirin due to being on Eliquis. She is on secondary risk prevention with Crestor, which has been resumed after surgery 3. Hypertension: BP you appears to be well controlled, she has been restarted on home medications 4. Hyperlipidemia: restarted on home statin therapy 5. Right knee osteoarthritis: Status post R TKA. started PT, Patient will be potentially discharged to longterm facility for further physical therapy. 6 DM: Being followed by hospital services 7. Low TSH: T3 and T4 within limits. Patient will follow up with PCP as an outpatient for further evaluation.\ 8. Low magnesium: Resolved today. 9. Postop anemia: slightly decreased at 10.4 and 27.6 today. will need to be continue to monitor. 10. Hyponatremia: Improved today from 130 of yesterday ti 132 today. repeat BMP in few days. Patient has been stable from cardiac standpoint. She has a follow-up visit set with us, I have placed her appointment time under discharge paperwork. We will sign off at this time. Please feel free to contact us with further questions or concerns. 12/16/16 14:03 Subjective: Patient denies of any chest pain, pressure, orthopnea ,PND, palpitations, lightheadedness. Reviewed/Discussed With: other (Dr Mcknight) Objective: Vital Signs (8 Hrs) Temp Pulse Resp BP Pulse Ox 12/16/16 11:32 37.2 C 68 16 126/52 H 91 L 12/16/16 11:16 84 L 12/16/16 08:00 36.3 C 72 24 H 128/55 H 91 L Intake/Output (24 Hrs) 12/15/16 12/16/16 12/17/16 05:59 05:59 05:59 Intake Total 2430 600 Output Total 1310 15 Balance 1120 585 Intake: Oral (ml) 830 500 IV Intake (ml) 1550 IV Infused (ml) 50 100 Clindamycin 600 mg/ 50 100 Dextrose 50 ml @ 100 mls/ hr IV Q8 [facility] Rx#: [id number] Output: Urine (ml) 1100 Bedside Commode 100 Toilet 1000 Estimated Blood Loss (ml) 10 Hemovac Drain Output (ml) 200 15 Right Knee Hemovac 200 15 Other: Weight 78.018 kg Intake Quantity Yes Sufficient Number of Voids Toilet 1 4 1 Result Diagrams: 12/16/16 04:28 12/16/16 04:28 - Physical Exam Constitutional: healthy appearing, no apparent distress, obese Ears, Nose, Mouth, Throat: moist mucous membranes Cardiovascular: regular rate and rhythm, no murmurs, pulses symmetric bilat, No jugular vein distention, No carotid bruit Peripheral Pulses: 1+: dorsalis-pedis (R), dorsalis-pedis (L), 2+: carotid (R), carotid (L) Respiratory: clear to auscultate bilat, no crackles, no wheezes, No expiratory wheeze Gastrointestinal: normoactive bowel sounds Skin: warm, No no edema ( Trace pedal edema bilateral lower extremities, right greater left.) Neurologic: AAOx3 Psychiatric: cooperative, interactive, following commands ICD10 Worksheet Patient Problems: Problems Problem Status Onset chronic disease mgmt/transitional care Acute Diarrhea Acute
[2016-12-16] MEDS: AMLODIPINE BESYLATE 5/BENAZEPRIL 10MG 1 EACH CAP PO SCH (14:07)
[2016-12-16] MEDS: HYDROCHLOROTHIAZIDE 25 MG TAB PO SCH (14:08)
[2016-12-16] MEDS: METOPROLOL SUCCINATE XR 50 MG TAB PO SCH (14:08)
[2016-12-16 14:12] VITALS: BP 121/50; PULSE 63
--- NOTE | 2016-12-16 17:06 | ASDISCHSUM ---
Discharge Information Plan Status:SNF Medically Cleared to Leave: Discharge Date:12/16/2016 05:02 PM D/C Disposition:[facility] Facility ADT D/C Disposition:[facility] Facility Projected Discharge Date:12/16/2016 11:00 AM Transportation at D/C:Wheelchair Van Discharge Delay Reason: Follow-Up Date:12/16/2016 11:00 AM Discharge Slot: Final Diagnosis: Placement Information Referral Type:*Shelter/SNF Referral ID:[id number] Provider Name:Nemo Dominique Address 1:[address] Phone Number: Address 2: Fax Number: City:[place] Selection Factors: State:[place] Patient Contact Information Contact Name:JONGDARIANA Relationship:Son Address:[address] Work Phone: City:[facility] Phone: [facility] Code:[place] [address] Email: Financial Information Financial Class: Primary Plan Desc:MEDICARE INPATIENT Primary Plan Number:[id number] Secondary Plan Desc:AARP/MDR SUPPLEMENT Secondary Plan Number:[id number] Assessment Information [facility] CM Progress Note CM Note CM Note Notes: PT rec home health care vs. SNF, OT rec HHC vs. home. Spoke w pt and sister Ivette reg'd d/c plan of care; pt is agreeable to referral to [facility]. Ivette is visiting from out of state, staying in pt's home for the next 3-4 weeks so she will be able to support pt at home after a d/c from SNF rehab. CM to follow. Date Signed: 12/15/2016 03:28 PM Electronically Signed By:IZAIAH Tafoya [facility] CM Progress Note CM Note CM Note Notes: Per [employer], pt is accepted for admission when she is medically stable. Date Signed: 12/15/2016 04:19 PM Electronically Signed By:IZAIAH Tafoya Intervention Information Intervention Type:*IM-Signed Date of Service:12/16/2016 10:55 AM Patient Type:Inpatient Staff Member:Adeola Tony Hours: Discipline: Severity: Comment:
--- NOTE | 2016-12-17 12:19 | PDDCSUM ---
Discharge Summary Discharge Summary: 71y/o F with R knee osteoarthritis admitted to undergo R TKA with Dr. Short. On admission patient was in a-fib, cardiology was consulted and cleared to proceed with the surgery. Pt received one dose of antibiotics prior to surgery and an additional 24 hours of antibiotic prophylaxis post-operatively. Pt was evaluated by PT and OT. Eliquis 5mg BID was restarted the same afternoon after surgery for chemoprophylaxis and SCDs/TEDs for mechanical prophylaxis. Pain was well managed. Pt was discharged to SNF. Pt was instructed to follow-up with Dr. Short 10-14 days post-operatively. Hospital course was otherwise uneventful.
== END 2016-12-16 17:02 | DRG 470 ==
LOC: F3N 05:39
PROVIDERS: ADMIT Orthopaedic Surgery Sports Medicine; ATTEND Orthopaedic Surgery Sports Medicine
PROC: 0SRC0J9 Replacement of Right Knee Joint with Synthetic Substitute, Cemented, Open Approach (ICD-10-PCS; principal; 2016-12-14 07:15)
DX: M17.11 Unilateral primary osteoarthritis, right knee (principal); I48.91 Unspecified atrial fibrillation; I10 Essential (primary) hypertension; E78.5 Hyperlipidemia, unspecified; E11.9 Type 2 diabetes mellitus without complications; I25.10 Atherosclerotic heart disease of native coronary artery without angina pectoris; Z85.820 Personal history of malignant melanoma of skin; Z85.43 Personal history of malignant neoplasm of ovary
CPT/HCPCS: 84481-90; 97110-GP; 97116-GP; 97161-GP; 97166-GO; 97535-GO; C1713; G8978-GP-CK; G8979-GP-CI; G8987-GO-CK; G8988-GO-CI; J0171; J1815; J1885; J2250; J2704; J2795; J3010; J3475

== ENCOUNTER → 2017-04-10 | Outpatient (CLI) | payer OTHER, MEDICARE | LOC: SBRMNEURO 21:00 | PROVIDERS: ATTEND Psychiatry & Neurology Sleep Medicine | DX: G47.33 Obstructive sleep apnea (adult) (pediatric) (principal); R09.02 Hypoxemia ==

== ENCOUNTER 2017-04-25 08:45 | Inpatient (IN) | payer MEDICARE, OTHER ==
--- NOTE | 2017-04-24 15:42 | GHP ---
[f rep st] PREOP HISTORY AND PHYSICAL DATE OF ADMISSION: 04/25/2017 CHIEF COMPLAINT: Right ankle pain. HISTORY OF PRESENT ILLNESS: The patient is a 72-year-old, history of progressive right ankle pain. She is having significant limitations in her ambulatory status secondary to her pain. MEDICATIONS: Positive for amlodipine, Eliquis, metoprolol, Multaq, rosuvastatin. PAST MEDICAL HISTORY: Positive for diabetes, hypercholesterolemia, and hypertension. ALLERGIES: She is allergic to penicillins and contrast dye. SOCIAL HISTORY: Negative for tobacco use. PHYSICAL EXAM: GENERAL: She is alert and oriented x3. No acute distress. HEENT: Head is normocephalic. Pupils equal, round, reactive to light. Extraocular eye movements intact. CHEST: Clear to auscultation. No rales or rhonchi. HEART: Regular rate and rhythm. No murmurs or gallops. ABDOMEN: Soft, nontender, nondistended. No organomegaly. GENITAL, RECTAL, BREASTS: Deferred. EXTREMITIES: Reveal tenderness on the right ankle with diminution of the ankle range of motion. Radiographs show advanced diminution of the tibiotalar joint space. ASSESSMENT: Right advanced ankle arthritis. PLAN: The patient is scheduled to undergo a right total ankle arthroplasty. /[id number]/MODL MTDD
[~2017-04-25 08:45] MED LIST changes: +CLINDAMYCIN 900 MG/DEXTROSE 50 ML IV ONE; -TRANEXAMIC ACID 1,000 MG in NS 100 ML IV ONE
[2017-04-25] MEDS ORDERED: BISACODYL 10 MG SUPP PR PRN (11:05)
[2017-04-25] MEDS ORDERED: MAGNESIUM HYDROXIDE 30 ML UDCUP PO PRN (11:05)
[2017-04-25] MEDS ORDERED: NALOXONE HCL 0.4 MG/ML INJ IVP PRN ×2 (11:05→15:44)
[2017-04-25] MEDS ORDERED: diphenhydrAMINE 25 MG CAP PO PRN (11:05)
[2017-04-25] MEDS ORDERED: LACTULOSE 20 GM/30 ML UDCUP PO PRN (11:05)
[2017-04-25] MEDS ORDERED: POLYETHYLENE GLYCOL 3350 17 GM PKT PO PRN (11:05)
[2017-04-25] MEDS ORDERED: morphINE PCA 30 MG/30 ML PCA IV PRN (11:05)
--- NOTE | 2017-04-25 11:05 | POSTOPPROG ---
Post Op Note Date of Operation: 04/25/17 Surgeon: Jean Claude Sibley Anesthesia: GET(General Endotracheal) Pre-op Diagnosis: R ankle arthrosis, gastrocnemius contracture Post-op Diagnosis: Same Procedure: Right TAA, gastrocnemius recession Inf/Abcess present in the surg proc area at time of surgery?: No EBL: Minimal
[2017-04-25] MEDS ORDERED: D5W 1/2 NS W/ 20 KCl/L 1,000 ML IV SCH (11:15)
[2017-04-25] MEDS ORDERED: LIDOCAINE 1% 2 ML INJ ID PRN (11:45)
[2017-04-25] MEDS ORDERED: LR 1,000 ML IV ONE (11:45)
[2017-04-25] MEDS ORDERED: OXYMETAZOLINE 30 ML NASAL SPRAY ONE (12:16)
[2017-04-25] MEDS ORDERED: MIDAZOLAM 2 MG/2 ML VIAL IVP ONE (12:21)
[2017-04-25] MEDS ORDERED: fentaNYL 100 MCG/2 ML INJ ONE ×2 (12:29→13:06)
[2017-04-25] MEDS ORDERED: MIDAZOLAM 2 MG/2 ML VIAL ONE (12:29)
[2017-04-25] MEDS ORDERED: BUPIVACAINE 0.5% 30 ML SDV ONE (13:06)
[2017-04-25] MEDS ORDERED: PROPOFOL 200 MG/20 ML VIAL ONE (13:06)
[2017-04-25] MEDS ORDERED: LIDOCAINE 2% 5 ML SDV ONE (13:09)
[2017-04-25] MEDS ORDERED: CLINDAMYCIN 900 MG/DEXTROSE/50 ML BAG IV ONE (13:10)
--- NOTE | 2017-04-25 13:24 | SOAPPROG ---
SOAP Progress Note Assessment/Plan: SCIATIC NERVE BLOCK, CATHETER PLACEMENT, RIGHT SIDE, POPLITEAL APPROACH Patient placed in LLD. Timeout completed, light sedation titrated. Sterile technique, under US-guidance, 21G Pajunk catheter advanced next to the sciatic nerve. Placement confirmed with nerve stimulator, plantar flexion of right hallux observed. Injected 20 ml of ropivacaine 0.5%, aspirating frequently. Catheter inserted through cannula, sterile dressings on. No apparent complications. Ten minutes post injection, patient reports onset of temperature sensation loss in the territory of the sciatic nerve. Patient's care transferred to Dr Vazquez. Plan: Will follow as necessary. 04/25/17 13:15 Placement of Objective: Vital Signs Temp Pulse Resp BP Pulse Ox 36.4 C 64 18 145/68 H 96 04/25/17 12:46 04/25/17 13:04 04/25/17 13:04 04/25/17 13:04 04/25/17 13:04 ICD10 Worksheet Patient Problems: Problems Problem Status Onset Diarrhea Acute chronic disease mgmt/transitional care Acute
--- NOTE | 2017-04-25 13:33 | PDANEPAE ---
ANE History of Present Illness s/p multiple ankle repairs d/t continued pain ANE Past Medical History - Cardiovascular History Hx Hypertension: Yes Hx Arrhythmias: Yes Hx Chest Pain: No Hx Coronary Artery / Peripheral Vascular Disease: Yes Hx CHF / Valvular Disease: No Hx Palpitations: No Cardiovascular History Comment: htn. afib. cad. high chol. was seeing Monik Smith at [facility] with Dr. Stern but has appointment set up with [facility] 11/17/16 to establish care there - Pulmonary History Hx COPD: No Hx Asthma/Reactive Airway Disease: No Hx Recent Upper Respiratory Infection: No Hx Oxygen in Use at Home: No Hx Sleep Apnea: Yes Sleep Apnea Screening Result - Last Documented: Positive Pulmonary History Comment: NOCTURNAL HYPOXIA. HAD SLEEP STUDY 04/10/17. POST TOTAL KNEE USED OXYGEN FOR 1 WEEK IN REHAB - Neurologic History Hx Cerebrovascular Accident: No Hx Seizures: No Hx Dementia: No - Endocrine History Hx Diabetes: Yes Endocrine History Comment: type 2- diet controlled - Renal History Hx Renal Disorders: Yes Renal History Comment: hx of bladder infections. decreased renal function - Liver History Hx Hepatic Disorders: No - Neurological & Psychiatric Hx Hx Neurological and Psychiatric Disorders: No - Cancer History Hx Cancer: Yes Cancer History Comment: skin ca. ovarian ca with removal of ovaries, fallopian tubes - Congenital Disorder History Hx Congenital Disorders: No - GI History Hx Gastrointestinal Disorders: Yes Gastrointestinal History Comment: occ diarrhea from medications - Other Health History Other Health History: wears bilateral hearing aides. wears glasses - Chronic Pain History Chronic Pain: Yes (right knee, right ankle) - Surgical History Prior Surgeries: bilateral cataracts. bilateral trigger finger surgeries. bilateral carpal tunnel surgeries. partial hysterectomy 1974. then she had to have ovaries removed later d/t cancer. eye lid surgery. right ankle surgery x3. wisdom teeth. gum surgery. growth removed on face ANE Review of Systems Review of Systems: - Exercise capacity Exercise capacity: >=4 METS METS (RN): 4 METS - Systems Constitutional: Reports: recent illness (recent URI 10 days with dry cough, afebrile, symptoms improving) EENMT: Reports: other (post nasal drip. 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/t macular degeneration) Cardiac: Reports: irregular heart rate (hx of afib) Respiratory: Reports: cough ANE Patient History - Allergies Allergies/Adverse Reactions: Iodinated Contrast- Oral and IV Dye Allergy (Severe, Verified 11/11/16 13:10) Swelling/neck,face,throat nitrofurantoin [From Macrobid] Allergy (Severe, Verified 11/11/16 13:10) Swelling/neck,face,throat Penicillins Allergy (Severe, Verified 11/11/16 13:10) Swelling/neck,face,throat ciprofloxacin [From Cipro] Allergy (Unknown, Verified 11/11/16 13:10) Other-Enter Comments - Home Medications Home Medications: Amlodipine Besylate/Benazepril [Amlodipine-Benazepril 10-20 mg] 1 each PO DAILY 11/07/16 [Last Taken 1 Day Ago ~04/24/17] Apixaban [Eliquis] 5 mg PO BID 11/07/16 [Last Taken 04/22/17 09:00] C/E/Zn/Cu/OM3/DHA/EPA/LUT/ZEAX [Preservision Areds 2 Softgel] 1 each PO DAILY [Last Taken 1 Week Ago ~04/18/17] Carboxymethylcellulos/Glycerin [Refresh Optive Eye Drops] 1 drop EACHEYE Q2 PRN 11/07/16 [Last Taken 1 Day Ago ~04/24/17] Cholecalciferol Vit D3 [Vitamin D3 2000 units tab (OTC)] 2,000 units PO DAILY [Last Taken 1 Week Ago ~04/18/17] Dronedarone HCl [Multaq 400 mg (*)] 400 mg PO BID 11/07/16 [Last Taken 04/25/17] Herbals/Supplements -Info Only 1 ea PO DAILY 11/07/16 [Last Taken 1 Week Ago ~] Metoprolol Succinate Xr [Toprol Xl 50 mg (*)] 50 mg PO BID 11/07/16 [Last Taken 04/25/17] Multivitamins [Multivitamin (*)] 1 each PO DAILY 11/07/16 [Last Taken 1 Week Ago ~04/18/17] Rosuvastatin Calcium [Crestor 20mg (*)] 20 mg PO HS 11/07/16 [Last Taken 1 Day Ago ~04/24/17] Sodium Chloride 5% [Maged-128 5% (*)] 1 scooby EACHEYE HS 11/07/16 [Last Taken 1 Day Ago ~04/24/17] Vitamin B Complex [B Complex] 1 each PO DAILY 11/07/16 [Last Taken 1 Week Ago ~ 04/18/17] oxyCODONE IR [Oxycodone Ir (*)] 5 mg PO DAILY PRN 04/13/17 [Last Taken Unknown] sitaGLIPtin PHOSPHATE [Januvia 25 MG (*)] 25 mg PO DAILY 04/13/17 [Last Taken ] - NPO status NPO Since - Liquids (Date): 04/25/17 NPO Since - Liquids (Time): 00:00 NPO Since - Solids (Date): 04/24/17 NPO Since - Solids (Time): 22:00 - Smoking Hx Smoking Status: Never smoked - Family Anes Hx Family Hx Anesthesia Complications: none ANE Labs/Vital Signs - Vital Signs Blood Pressure: 145/68 Heart Rate: 64 Respiratory Rate: 18 O2 Sat (%): 96 Height: 161.29 cm Weight: 73.936 kg ANE Physical Exam - Airway Mallampati Score: Class 2 Mouth exam: normal dental/mouth exam - Pulmonary Pulmonary: no respiratory distress - Cardiovascular Cardiovascular: regular rate and rhythym - ASA Status ASA Status: III ANE Anesthesia Plan Anesthesia Plan: GA w LMA (Flu S/S and proceeeding with surgery discussed with surgeon, pt and family in agreement with proceeding.) Regional Anesthesia: continuous NB, popliteal SNB Total IV Anesthesia: No
[2017-04-25] MEDS ORDERED: ROPIVACAINE 0.2% 1,100 MG in PUMP SET 1 EA NB SCH (14:00)
[2017-04-25] MEDS ORDERED: ONDANSETRON 4 MG/2 ML VIAL ONE (14:37)
--- NOTE | 2017-04-25 15:25 | POSTANESTH ---
Post Anesthetic Evaluation Cardiovascular Status: Similar to Pre-Op Cond Respiratory Status: Similar to Pre-op Cond. Level of Consciousness/Mental Status: Can Participate in Eval Pain Control: Adequate, Prn Tx Ordered (Popliteal catheter attached to OnQ pain pump filled with Ropivicaine 0.2% 550ml and set to run at 6 ml/hr.) Nausea/Vomiting Control: Adequate, Prn Tx Ordered Complications Possibly Related to Anesthesia: None Noted
[2017-04-25] MEDS ORDERED: HYDROmorphONE/DILAUDID 1 MG/ML INJ IVP PRN (15:44)
[2017-04-25] MEDS ORDERED: ONDANSETRON 4 MG/2 ML VIAL IVP PRN (15:44)
[2017-04-25] MEDS ORDERED: fentaNYL 100 MCG/2 ML INJ IVP PRN (15:44)
[2017-04-25] MEDS ORDERED: HYDROmorphONE/DILAUDID 1 MG/ML INJ ONE (16:05)
--- NOTE | 2017-04-25 17:32 | ASMTCMCOM ---
CM Note CM Note Notes: Pt pending total ankle replacement. Has had [facility] in past. Please contact Amira at [phone] if pt has homecare needs. Date Signed: 04/25/2017 05:31 PM Electronically Signed By:IZAIAH Bonilla
[2017-04-25] MEDS: CLINDAMYCIN 600 MG/DEXTROSE 50 ML IV SCH ×2 (17:35→21:35)
[2017-04-25] MEDS ORDERED: ROSUVASTATIN CALCIUM 20 MG TAB PO SCH (21:00)
[2017-04-25] MEDS: SENNOSIDES/DOCUSATE SODIUM TAB PO SCH (21:15)
[2017-04-25] MEDS: METOPROLOL SUCCINATE XR 50 MG TAB PO SCH (21:15)
[2017-04-25] MEDS: oxyCODONE IR 5 MG TAB PO PRN (21:16)
[2017-04-25] MEDS: DRONEDARONE HCL 400 MG TAB PO SCH (21:35)
--- NOTE | 2017-04-26 01:00 | GOP ---
[f rep st] OPERATIVE REPORT DATE OF OPERATION: 04/25/2017 SURGEON: Jean Claude Sibley MD TURNER OFF: Jake Ortiz PA-C, who was necessary for the completion of the surgery. ANESTHESIA: General plus indwelling popliteal nerve block performed by the anesthesiologist at my re quest for postoperative pain management. PREOPERATIVE DIAGNOSIS: 1. Right ankle arthrosis. 2. Right Achilles contracture. POSTOPERATIVE DIAGNOSIS: 1. Right ankle arthrosis. 2. Right Achilles contracture. PROCEDURE PERFORMED: 1. Right total ankle arthroplasty. 2. Right percutaneous tendo-Achilles lengthening. 3. Intraoperative use of fluoroscopy. FINDINGS: ESTIMATED BLOOD LOSS: Negligible. INDICATIONS: The patient is a 72-year-old with history of advanced ankle arthritis. She was having progressive pain with limitations secondary to her symptoms. Based on her persistence of symptoms, r efractory to nonoperative treatment, she was interested in pursuing the operative treatment. From an operative standpoint, end-stage ankle arthritis surgery options including arthrodesis and total ankl e arthroplasty were discussed in detail, with anticipated risks and benefits of both approaches. The patient elected to pursue total ankle arthroplasty. The patient acknowledged she understood the pot ential risks of the operation, including but not limited to, bleeding; infection; neurovascular damag e including loss of limb or limb function; implant failure necessitating revision, removal and conver nga to arthrodesis or potentially amputation; and anesthetic risks. She acknowledged she understood the potential risks, planned procedure, and postoperative plan well, and had all her questions answe red prior to surgery. She gave her consent for the operative procedure. DESCRIPTION OF PROCEDURE: The patient was brought to the operating room after IV antibiotics were ad ministered. Indwelling popliteal block was performed by the anesthesiologist at my request for posto perative pain management in preop holding. She was placed in a supine position where general anesthe tic was administered. A tourniquet was placed on the right thigh, bump underneath the right hip and shoulder, and the right lower leg was prepped and draped in standard sterile fashion. After marking the incision and Claudio wrap exsanguination, tourniquet was inflated to 250. An anterior approach to the ankle was utilized for exposure. Skin and subcutaneous tissue were sharply incised. The extensor retinaculum was incised in line with the skin incision, taking care to avoid damage to the medial branch of the superficial peroneal nerve. The interval between the tibialis anterior and extensor hallucis longus was utilized for exposure. The capsule was split longitudinally and reflect ed medially and laterally. Advanced arthritic changes of the ankle were noted. Prominent osteophyte s on the distal aspect of the anterior tibia were removed with a chisel. The cutting jig from the [employer] Total Ankle was applied. The height of the cut was identifi ed both clinically and fluoroscopically, utilizing the [employer] wing. When correcting for alignment in the lateral plane, it was not possible to place the cutting guide flush with the bone due to the morp hology of the patient's leg. Pins were placed through the appropriate position in the cutting guide, leaving it displaced anteriorly off the bone. It was felt that keeping the entire cutting guide in place would not be possible. The remaining aspect of the cutting guide was removed and the distal cu tting jig was placed flush against the bone. Prior to doing this, the rotational translational and h eight as well as varus/valgus correction was ensured to be accurate, both clinically and fluoroscopic ally. Utilizing a saw, the plafond cut was made. The medial cut was made initially with drill bits and completed with a saw. The corner osteotome was used to aid in removal of the cut bone portions. The attention was then directed toward the talar cuts. As the cutting guide was not in position, thi s was done in a freehand manner, cutting a thin dome cut. The anterior and posterior chamfer cutting guide was then placed and position confirmed fluoroscopically. The posterior cut was made with a sa w and the anterior cut was made utilizing the milling guide. The cut bone portions were removed. A size 1 talar trial was impacted into place and found to have favorable positioning. The tibia was measured to be at 1X. A 1X tibial trial and size 1 talar trial with a 6 mm polyethylene trial were p laced and found to have favorable fit. Through the tibial trial, the peg holes were drilled. The tr ial implants were removed. Small portions from the medial and lateral gutters were removed with a ch hang. Definitive size 1X tibial component was impacted into place and found to have favorable positi oning. A size 1 talus was then impacted and similarly found to have favorable positioning, both clin ically and fluoroscopically. The 6 mm polyethylene was placed. The ankle was found to have good stability. It had good plantar flexion motion but was stiff in dors iflexion. As she had a previous gastroc recession, it was felt that a more robust lengthening via pe rcutaneous Achilles lengthening would be necessary. A percutaneous Achilles lengthening with a proxi mal distal medial and central lateral olya transection (VIOLA) was performed. This allowed for favora ble dorsiflexion. Attention was directed toward closure. The Achilles incisions were closed with a stapler. Anteriorl y, the extensor retinaculum was closed with 2-0 Vicryl suture in interrupted fashion, subcutaneous ti ssue was closed with 3-0 Vicryl suture in interrupted fashion. Skin was closed with 4-0 nylon interr upted vertical mattress sutures. The wounds were dressed with sterile Adaptic, 4 x 4, and Webril, an d leg was placed in a below-knee splint. The patient tolerated the procedure well, she was taken to the recovery room, extubated, in stable condition postoperatively. All sponge, needle, and instrumen t counts were reported as being correct. DRAINS: None. COMPLICATIONS: None. PLAN: The patient will be admitted for medical management. She will be nonweightbearing on her oper ative extremity. /[id number]/MODL
[2017-04-26] MEDS: oxyCODONE IR 5 MG TAB PO PRN ×2 (01:38→08:53)
[2017-04-26] MEDS ORDERED: GLYCERIN EACHEYE PRN (05:49)
[2017-04-26] MEDS ORDERED: CARBOXYMETHYLCELLULOS EACHEYE PRN (05:49)
[2017-04-26] MEDS ORDERED: oxyCODONE IR 5 MG TAB PO PRN (05:50)
--- NOTE | 2017-04-26 05:51 | SOAPPROG ---
SOAP Progress Note Assessment/Plan: Assessment: S/P R TAA Pain well controlled (Block) Payal po Splint intact No D/C Toes with good cap refill Plan: OOB/PT Possible D/C pending progress 04/26/17 05:46 Objective: Vital Signs Temp Pulse Resp BP Pulse Ox 36.6 C 64 16 135/74 H 94 04/25/17 23:27 04/25/17 23:27 04/25/17 23:27 04/25/17 23:27 04/25/17 23:27 04/24/17 04/25/17 04/26/17 05:59 05:59 05:59 Output Total 200 Balance -200 ICD10 Worksheet Patient Problems: Problems Problem Status Onset Diarrhea Acute chronic disease mgmt/transitional care Acute
[2017-04-26] MEDS: CLINDAMYCIN 600 MG/DEXTROSE 50 ML IV SCH (06:18)
[2017-04-26] MEDS: ACETAMINOPHEN 325 MG TAB PO SCH ×2 (07:17→12:35)
[2017-04-26] MEDS: DRONEDARONE HCL 400 MG TAB PO SCH (08:40)
[2017-04-26] MEDS: MULTIVITAMINS 1 EACH TAB PO SCH ×2 (08:40→10:16)
[2017-04-26] MEDS: SENNOSIDES/DOCUSATE SODIUM TAB PO SCH (08:40)
[2017-04-26] MEDS: CHOLECALCIFEROL VIT D3 2,000 UNITS TAB/CAP PO SCH ×2 (08:40→10:13)
[2017-04-26] MEDS: METOPROLOL SUCCINATE XR 50 MG TAB PO SCH (08:40)
[2017-04-26] MEDS: VITAMIN B COMPLEX 1 EA CAP/TAB PO SCH ×2 (08:41→10:16)
[2017-04-26] MEDS ORDERED: APIXABAN 5 MG TAB PO SCH (09:00)
[2017-04-26] MEDS ORDERED: Herbals/Supplements -Info Only PO SCH (09:00)
[2017-04-26] MEDS ORDERED: PRESERVISION AREDS2 FORMULA EYE VIT 1 EACH PO SCH (09:00)
[2017-04-26] MEDS ORDERED: AMLODIPINE BESYLATE 5/BENAZEPRIL 10MG 1 EACH CAP PO SCH (09:00)
[2017-04-26] MEDS ORDERED: VITAMIN B COMPLEX 1 EA CAP/TAB PO SCH (09:00)
[2017-04-26 12:08] VITALS: BP 114/57; PULSE 59; RESP 16; TEMP 98.8; O2SAT 95
--- NOTE | 2017-04-26 12:49 | PDIAF ---
- Diagnosis Code Status: Full Code - Medication Management Discharge Medications: Medications to Continue on Transfer Amlodipine Besylate/Benazepril [Amlodipine-Benazepril 10-20 mg] 1 each PO DAILY 11/07/16 [Last Taken 1 Day Ago ~04/24/17] Apixaban [Eliquis] 5 mg PO BID 11/07/16 [Last Taken 04/22/17 09:00] C/E/Zn/Cu/OM3/DHA/EPA/LUT/ZEAX [Preservision Areds 2 Softgel] 1 each PO DAILY [Last Taken 1 Week Ago ~04/18/17] Carboxymethylcellulos/Glycerin [Refresh Optive Eye Drops] 1 drop EACHEYE Q2 PRN 11/07/16 [Last Taken 1 Day Ago ~04/24/17] Cholecalciferol Vit D3 [Vitamin D3 2000 units tab (OTC)] 2,000 units PO DAILY [Last Taken 1 Week Ago ~04/18/17] Dronedarone HCl [Multaq 400 mg (*)] 400 mg PO BID 11/07/16 [Last Taken 04/25/17] Herbals/Supplements -Info Only 1 ea PO DAILY 11/07/16 [Last Taken 1 Week Ago ~] Metoprolol Succinate Xr [Toprol Xl 50 mg (*)] 50 mg PO BID 11/07/16 [Last Taken 04/25/17] Multivitamins [Multivitamin (*)] 1 each PO DAILY 11/07/16 [Last Taken 1 Week Ago ~04/18/17] Rosuvastatin Calcium [Crestor 20mg (*)] 20 mg PO HS 11/07/16 [Last Taken 1 Day Ago ~04/24/17] Sodium Chloride 5% [Maged-128 5% (*)] 1 scooby EACHEYE HS 11/07/16 [Last Taken 1 Day Ago ~04/24/17] Vitamin B Complex [B Complex] 1 each PO DAILY 11/07/16 [Last Taken 1 Week Ago ~ 04/18/17] Acetaminophen [Tylenol 325mg (*)] 650 mg PO Q6HRS tab 12/15/16 [Last Taken 1 Week Ago ~04/18/17] oxyCODONE IR [Oxycodone Ir (*)] 5 mg PO DAILY PRN 04/13/17 [Last Taken Unknown] sitaGLIPtin PHOSPHATE [Januvia 25 MG (*)] 25 mg PO DAILY 04/13/17 [Last Taken ] oxyCODONE IR [Oxycodone Ir (*)] 5 - 15 mg PO Q3HRS PRN tab 04/26/17 [Last Taken Unknown] Discharge Medications: Refer to the Discharge Home Medication list for PRN reason. - Orders Services needed: Home Care, Registered Nurse, Physical Therapy, Occupational Therapy Home Care Face to Face: I certify that this patient was under my care and that I had the required [id number] encounter meeting the encounter requirements on the discharge day. My findings support the fact that the patient is homebound as defined in Home Care Face to Face Continued: CMS Chapter 7 Medicare Benefits Manual 30.1.1 , The condition of the patient is such that there exists a normal inability to leave home and consequently, leaving home would require a considerable and taxing effort. Diet Recommendation: no restrictions on diet Wound Care Instructions: Keep splint in place Activity/Weight Bearing Restrictions: Non weight bearing Right leg - Follow Up Care Current Providers and Referrals: COOPER MON [Other] Jean Claude Sibley MD [Medical Doctor] -
--- NOTE | 2017-04-26 14:26 | ASMTCMCOM ---
CM Note CM Note Notes: Pt medically stable for d/c with [facility]sh[facility] RN/OT, orders sent in Allscripts. Pt will stay w son at [facility] pt cell is [phone], Anshu informed. Date Signed: 04/26/2017 02:25 PM Electronically Signed By:IZAIAH Tafoya
--- NOTE | 2017-04-26 14:27 | ASDISCHSUM ---
Discharge Information Plan Status:Home with Home Health Medically Cleared to Leave: Discharge Date:04/26/2017 01:55 PM CM D/C Disposition:Home Health Service ADT D/C Disposition:Home, Routine, Self-Care Projected Discharge Date:04/26/2017 11:00 AM Transportation at D/C:Family Discharge Delay Reason: Follow-Up Date:04/26/2017 11:00 AM Discharge Slot: Final Diagnosis: Placement Information Referral Type:*Home Health Care Services Referral ID:[id number] Provider Name:Anshu Replaced By [facility] [place] Address 1:[address] [address] Phone Number: Address 2: Fax Number: City:[place] Selection Factors: State:[place] Patient Contact Information Contact Name:VIOLETTE Relationship:Son Address:[address] Work Phone: City:[facility] Phone: State/Zip Code:[place] [address] Email: Financial Information Financial Class:Worker's Compensation Primary Plan Desc:[employer] [facility] Primary Plan Number:[id number] Secondary Plan Desc: Secondary Plan Number: Assessment Information [facility] CM Progress Note CM Note CM Note Notes: Pt pending total ankle replacement. Has had [facility] in past. Please contact Amira at [phone] if pt has homecare needs. Date Signed: 04/25/2017 05:31 PM Electronically Signed By:IZAIAH Bonilla [facility] CM Progress Note CM Note CM Note Notes: Pt medically stable for d/c with [facility] RN/OT, orders sent in Allscripts. Pt will stay w son at [address] [place] pt cell is [phone], Anshu informed. Date Signed: 04/26/2017 02:25 PM Electronically Signed By:IZAIAH Tafoya Intervention Information
[2017-04-26] MEDS ORDERED: SODIUM CHLORIDE 5% 3.5 GM OPHT.OINT EACHEYE SCH (21:00)
== END 2017-04-26 13:55 | disposition home health service (06) | DRG 469 ==
LOC: F3N 10:57
PROVIDERS: ADMIT Orthopaedic Surgery Foot and Ankle Surgery; ATTEND Orthopaedic Surgery Foot and Ankle Surgery
PROC: 0SRF0JZ Replacement of Right Ankle Joint with Synthetic Substitute, Open Approach (ICD-10-PCS; principal; 2017-04-25 12:30)
PROC: 0L8S3ZZ Division of Right Ankle Tendon, Percutaneous Approach (ICD-10-PCS; principal; 2017-04-25 12:30)
DX: M19.071 Primary osteoarthritis, right ankle and foot (principal); M62.461 Contracture of muscle, right lower leg; I10 Essential (primary) hypertension; I48.91 Unspecified atrial fibrillation; E78.00 Pure hypercholesterolemia, unspecified; I25.10 Atherosclerotic heart disease of native coronary artery without angina pectoris; G47.30 Sleep apnea, unspecified; E11.9 Type 2 diabetes mellitus without complications; Z79.01 Long term (current) use of anticoagulants; Z88.0 Allergy status to penicillin; Z91.041 Radiographic dye allergy status
CPT/HCPCS: 97116-GP; 97161-GP; 97165-GO; 97535-GO; J1170; J2250; J2405; J2704; J2795; J3010

== ENCOUNTER 2017-09-05 05:04 | Emergency (ER) | payer OTHER, MEDICARE ==
[2017-09-05 05:18] VITALS: BP 168/68
--- NOTE | 2017-09-05 05:46 | EDPHY ---
H & P Stated Complaint: fall hit head on eloquis concerned Time Seen by Provider: 09/05/17 05:32 HPI/ROS: Chief Complaint: Head injury, anticoagulation HPI: 72-year-old woman had a mechanical fall at home this morning when she tripped on a rug. She struck her head on a table edge. She had no loss of consciousness. She is concerned because she is currently taking Eliquis for atrial fibrillation. Does have some pain on the left side of her head where she struck the table. No nausea or vomiting. Very mild headache. No numbness or weakness. No neck pain. ROS: 10 point Review of Systems is negative except as noted in the HPI. PMH: Atrial fibrillation Social History: No smoking, no alcohol, no recreational drug use Family History: non-contributory Physical Exam: Gen: Awake, Alert, No Distress HEENT: Scalp: She has tenderness in the left parietal region with small amount of ecchymosis, no laceration, no deformity Nose: no rhinorrhea Eyes: PERRLA, EOMI Mouth: Moist mucosa Neck: Supple, no JVD Chest: nontender, lungs clear to auscultation Heart: S1, S2 normal, no murmur Abd: Soft, non-tender, no guarding Back: no CVA tenderness, no midline tenderness Ext: no edema, non-tender Skin: no rash Neuro: CN II-XII intact, Sensation grossly intact, Strength 5/5 in bilateral upper and lower extremities - Personal History Current Tetanus/Diphtheria Vaccine: Yes Current Tetanus Diphtheria and Acellular Pertussis (TDAP): Yes Tetanus Vaccine Date: unsure - Medical/Surgical History Hx Asthma: No Hx Chronic Respiratory Disease: No Hx Diabetes: Yes Hx Cardiac Disease: Yes Hx Renal Disease: Yes Hx Cirrhosis: No Hx Alcoholism: No Hx HIV/AIDS: No Hx Splenectomy or Spleen Trauma: No Other PMH: a fib, CAD, diabetes, macular degeneration, htn, high chol, Ovarian CA-hyst - Social History Smoking Status: Never smoked Constitutional: Initial Vital Signs Temperature (C) 36.6 C 09/05/17 05:16 Heart Rate 77 09/05/17 05:16 Respiratory Rate 18 09/05/17 05:16 Blood Pressure 168/68 H 09/05/17 05:16 O2 Sat (%) 95 09/05/17 05:16 O2 Delivery Mode Room Air Allergies/Adverse Reactions: Iodinated Contrast- Oral and IV Dye Allergy (Severe, Verified 11/11/16 13:10) Swelling/neck,face,throat nitrofurantoin [From Macrobid] Allergy (Severe, Verified 11/11/16 13:10) Swelling/neck,face,throat Penicillins Allergy (Severe, Verified 11/11/16 13:10) Swelling/neck,face,throat ciprofloxacin [From Cipro] Allergy (Unknown, Verified 11/11/16 13:10) Other-Enter Comments Home Medications: Medication Instructions Recorded Amlodipine Besylate/Benazepril 1 each PO DAILY 11/07/16 [Amlodipine-Benazepril 10-20 mg] Apixaban [Eliquis] 5 mg PO BID 11/07/16 C/E/Zn/Cu/OM3/DHA/EPA/LUT/ZEAX 1 each PO DAILY 11/07/16 [Preservision Areds 2 Softgel] Carboxymethylcellulos/Glycerin 1 drop EACHEYE Q2 PRN 11/07/16 [Refresh Optive Eye Drops] Cholecalciferol Vit D3 [Vitamin D3 2,000 units PO DAILY 11/07/16 2000 units tab (OTC)] Dronedarone HCl [Multaq 400 mg (*)] 400 mg PO BID 11/07/16 Herbals/Supplements -Info Only 1 ea PO DAILY 11/07/16 Metoprolol Succinate Xr [Toprol Xl 50 mg PO BID 11/07/16 50 mg (*)] Multivitamins [Multivitamin (*)] 1 each PO DAILY 11/07/16 Rosuvastatin Calcium [Crestor 20mg 20 mg PO HS 11/07/16 (*)] Sodium Chloride 5% [Maged-128 5% 1 scooby EACHEYE HS 11/07/16 (*)] Vitamin B Complex [B Complex] 1 each PO DAILY 11/07/16 Acetaminophen [Tylenol 325mg (*)] 650 mg PO Q6HRS tab 12/15/16 oxyCODONE IR [Oxycodone Ir (*)] 5 mg PO DAILY PRN 04/13/17 sitaGLIPtin PHOSPHATE [Januvia 25 25 mg PO DAILY 04/13/17 MG (*)] oxyCODONE IR [Oxycodone Ir (*)] 5 - 15 mg PO Q3HRS PRN tab 04/26/17 Medical Decision Making - Diagnostics Imaging Results: CT scan of the head is negative for acute bleed per Dr. Carrington. ED Course/Re-evaluation: 72-year-old woman who is anticoagulated status post fall with head injury. She had no loss of consciousness. She has minimal headache. No nausea or vomiting. She is very concerned because she lives alone and is worried that if she has a intracranial bleed that she could . I have reassured her that the likely it is a but given her concerns and the tenderness at the site and her anticoagulation will obtain CT scan of the head to rule out acute bleed. CT scan of the head is negative. Patient has been reassured. She will be discharged with follow up with primary care physician for any concerns. Departure - Departure Disposition: Home, Routine, Self-Care Clinical Impression: Scalp contusion Condition: Good Instructions: Scalp Contusion in Adults (ED) Additional Instructions: Follow up with primary care physician in 3-4 days for any concerns. Return to the emergency department for increasing headache, confusion, nausea, vomiting, numbness, weakness, or any other concerns. Referrals: NONE *PRIMARY CARE P,. [Primary Care Provider] - As per Instructions
== END 2017-09-05 06:02 | disposition home or self-care (01) ==
DX: S00.03XA Contusion of scalp, initial encounter (principal); E11.9 Type 2 diabetes mellitus without complications; I25.10 Atherosclerotic heart disease of native coronary artery without angina pectoris; I10 Essential (primary) hypertension; W01.198A Fall on same level from slipping, tripping and stumbling with subsequent striking against other object, initial encounter; Y92.009 Unspecified place in unspecified non-institutional (private) residence as the place of occurrence of the external cause; Y99.8 Other external cause status

== ENCOUNTER → 2018-04-18 | Outpatient (CLI) | payer OTHER, MEDICARE | LOC: BHFA 15:30 | PROVIDERS: ATTEND Internal Medicine Cardiovascular Disease | DX: I48.0 Paroxysmal atrial fibrillation (principal); I25.10 Atherosclerotic heart disease of native coronary artery without angina pectoris; I10 Essential (primary) hypertension; I34.0 Nonrheumatic mitral (valve) insufficiency; I44.0 Atrioventricular block, first degree; E78.5 Hyperlipidemia, unspecified ==

== ENCOUNTER 2018-05-07 22:17 | Inpatient (IN) | payer OTHER, MEDICARE ==
--- NOTE | 2018-05-07 22:32 | EDPHY ---
H & P Stated Complaint: hard to take a deep breath, knee replacement on 04/29/18 - Personal History Current Tetanus/Diphtheria Vaccine: No Current Tetanus Diphtheria and Acellular Pertussis (TDAP): No Tetanus Vaccine Date: unsure - Medical/Surgical History Hx Asthma: No Hx Chronic Respiratory Disease: No Hx Diabetes: Yes Hx Cardiac Disease: Yes Hx Renal Disease: Yes Hx Cirrhosis: No Hx Alcoholism: No Hx HIV/AIDS: No Hx Splenectomy or Spleen Trauma: No Other PMH: a fib, CAD, diabetes, macular degeneration, htn, high chol, Ovarian CA-hyst, right knee/ankle replacement, low kidney function - Social History Smoking Status: Never smoked Time Seen by Provider: 05/07/18 22:31 HPI/ROS: CHIEF COMPLAINT: Shortness of breath, recent knee surgery HISTORY OF PRESENT ILLNESS: The patient is a 73 y/o female with a history of atrial fibrillation arriving with her family member complaining of shortness of breath onset today. She had a right knee replacement surgery on 04/29/18, 8 days ago and her Eliquis was stopped for 3 days. She had a PICC placed , 5 days ago, for an enterococcal infection in her knee found on a routine biopsy during the surgery and has been on ampicillin. She fell the same day onto her back and has had mild back pain since then. She was generally recovering well until yesterday when she started to feel tired. Today this progressed and she now feels exhausted. She's had difficulty breathing particularly with any exertion throughout the day. While at PT and lying flat, she was nearly unable to tolerate this due to dyspnea and notes she has been sleeping sitting up for the last 3 days. While at home this evening her home pulse oximeter read 77%. This improved to 100% on supplemental O2. She uses O2 at night for sleep apnea. She is no longer using opioids for pain and is currently taking Tylenol. She also mentions some decreased urination lately. She denies chest pain, fever, cough. REVIEW OF SYSTEMS: A ten system review of systems was performed and is negative with the exception of the items mentioned in the HPI. Past medical history: 1. Atrial fibrillation - Eliquis 2. Hypertension 3. Sleep apnea, home O2 at night Past surgical history: 1. Right knee replacement revision 04/29/[address] Brooke at [place] 2. Prior knee replacement 2017 - Dr. Short Family history: Noncontributory Social history: Family member at bedside. Lives in [place]. Retired. General Appearance: Alert. Vital signs reviewed. 88% on room air. BP 147/57. Eyes: Pupils equal and round, no conjunctival injection, no discharge. Anicteric. ENT, Mouth: Mucous membranes are moist, no oropharyngeal erythema or edema. Neck: No lymphadenopathy, supple. No JVD. Respiratory: Lungs are clear to auscultation; no wheezes, rales, or rhonchi. Cardiovascular: Regular rate and rhythm; no murmur, rub, or gallop. PICC left upper arm. Gastrointestinal: Abdomen is soft and nontender, no masses or organomegaly. Skin: Warm and dry, no rashes on exposed skin, normal color. Back: Nontender to palpation over the thoracolumbar spine. No CVAT. Extremities: Right leg compression stocking and bandage in place. Point tenderness to lateral aspect of right knee. 1+ bilateral lower extremity edema , slightly worse on left, no calf tenderness. Neurological: Alert and oriented. Moving all four extremities easily and equally. Psychiatric: Normal affect. (Geneva Jose) Constitutional: Initial Vital Signs Temperature (C) 37.1 C 05/07/18 22:18 Heart Rate 72 05/07/18 22:18 Respiratory Rate 16 05/07/18 22:18 Blood Pressure 147/57 H 05/07/18 22:18 O2 Sat (%) 90 L 05/07/18 22:18 O2 Delivery Mode Nasal Cannula O2 (L/minute) 2 Allergies/Adverse Reactions: ampicillin Allergy (Severe, Verified 05/10/18 12:54) Other-Enter Comments Iodinated Contrast- Oral and IV Dye Allergy (Severe, Verified 05/07/18 22:25) Swelling/neck,face,throat nitrofurantoin [From Macrobid] Allergy (Severe, Verified 05/07/18 22:25) Swelling/neck,face,throat Home Medications: Medication Instructions Recorded Amlodipine Besylate/Benazepril 1 each PO DAILY 11/07/16 [Amlodipine-Benazepril 10-20 mg] Apixaban [Eliquis] 5 mg PO BID 11/07/16 Cholecalciferol Vit D3 [Vitamin D3 2,000 units PO DAILY@12 11/07/16 2000 units tab (OTC)] Herbals/Supplements -Info Only 1 ea PO DAILY 11/07/16 Metoprolol Succinate Xr [Toprol Xl 50 mg PO BIDMEAL 11/07/16 50 mg (*)] Rosuvastatin Calcium [Crestor 20mg 20 mg PO Q2D@18 11/07/16 (*)] sitaGLIPtin PHOSPHATE [Januvia 25 25 mg PO DAILY@12 04/13/17 MG (*)] traMADol [Ultram 50 mg (*)] 50 mg PO HS 05/07/18 Acetaminophen [Tylenol ES 500 mg 500 mg PO BID 05/08/18 (*)] C/E/Zn/Cu/OM3/DHA/EPA/LUT/ZEAX 1 each PO DAILY@12 05/08/18 [Preservision Areds 2 Softgel] Loperamide HCl [Imodium 2 mg (*)] 2 mg PO PRN PRN 05/08/18 Rosuvastatin Calcium [Crestor 40mg 40 mg PO Q2D@18 05/08/18 (*)] DAPTOmycin [Cubicin] 500 mg IV DAILY@1800 ml 05/14/18 Polyethylene Glycol 3350 [Miralax 17 gm PO DAILY PRN pkt 05/14/18 17 gm (*)] Sennosides/Docusate Sodium 1 - 2 tab PO BID tab 05/14/18 [Senokot-S] Medical Decision Making - Diagnostics Imaging: Discussed imaging studies w/ callisthenics instructor Radiologist, I viewed and interpreted images myself ED Course/Re-evaluation: This is an anticoagulated 73 y/o female 8 days out from a right knee replacement surgery who complains of exhaustion and dyspnea worsening over the last day. Lungs are clear. She is hypoxemic around 88% on room air. Plan for IV , labs, UA, EKG, and chest CTA. High pre-test probability for PE. Other considerations include pneumonia, pulmonary edema. The 12 lead EKG was interpreted by myself. See hard copy and/or "tracemaster" electronic copy for interpretation. Patient's care transferred to Dr. Rizvi at change of shift. (Geneva Jose) [id number]: When seen evaluated this patient. She is here with shortness of breath. Includes concerned about possible PE. However creatinine is 2. Also she has anaphylaxis to IV contrast The plan will be for ultrasound of her bilateral lower extremities, I will add on a BNP, troponin to rule out heart strain. The patient's chest x-ray reviewed by myself shows cardiomegaly and possibly pulmonary edema. The patient is hypoxic 85 86% on room air. She is currently resting comfortably on supplemental oxygen. I did examine her bilateral lower extremities: Shows ecchymosis down her right leg but clear incision line. No evidence of infection on exam. Her legs are warm. She has rather large legs with some edema bilaterally. Plan for ultrasound. Plan for admit to the hospital service for shortness of breath and hypoxia Patient does have a left upper extremity PICC line which she is getting antibiotics Dr. Mcgrath Consulted. Patient's chest x-ray reviewed shows cardiomegaly with pulmonary edema. Patient's troponin 0.00 Patient's BNP is very elevated 11,700. No old to compare to. However clinically on exam with her hypoxia, bilateral lower extremity edema, cardiomegaly, chest x-ray showing pulmonary edema I believe she is volume overload. I will order a touch of Lasix 20 mg IV. Patient be admitted the hospitalist service. Dr. Mcgrath agrees to admit. CR elevated 2.0. Noted. US Bilateral lower extremity pending. (Mannie Rizvi) Differential Diagnosis: Shortness of breath including but not limited to pulmonary infectious process, COPD, asthma, pulmonary embolus and congestive heart failure. (Geneva Jose) - Data Points Laboratory Results: Laboratory Results 05/07/18 23:02 05/07/18 23:02 Medications Given: Acetaminophen (Tylenol) 650 mg PO Q4HRS PRN PRN Reason: Pain, Mild/Fever, Can Take PO Stop: 11/04/18 00:57 Last Admin: 05/14/18 09:55 Dose: 650 mg Amlodipine Besylate (Norvasc) 10 mg PO DAILY [facility] Stop: 11/05/18 08:59 Last Admin: 05/14/18 09:55 Dose: 10 mg Apixaban (Eliquis) 5 mg PO BID DUANE Stop: 11/04/18 20:59 Last Admin: 05/14/18 09:55 Dose: 5 mg Cholecalciferol (Vitamin D) 2,000 units PO DAILY@12 [facility] Stop: 11/05/18 11:59 Last Admin: 02/11/19 12:15 Dose: 2,000 units Dronedarone (Multaq) 400 mg PO BIDMEAL [facility] Stop: 11/04/18 17:59 Last Admin: 05/13/18 11:27 Dose: 400 mg Metoprolol Succinate (Toprol Xl) 50 mg PO BIDMEAL [facility] Stop: 11/04/18 17:59 Last Admin: 05/14/18 09:55 Dose: 50 mg Miscellaneous (Caitlyn-Ease 2 Gm) 2 scooby TP PRN PRN PRN Reason: Dry Nose Stop: 11/07/18 08:19 Last Admin: 05/11/18 08:25 Dose: 2 scooby Multivitamins/Minerals (Preservision Areds2 Formula) 1 each PO DAILY@12 [facility] Stop: 11/05/18 11:59 Last Admin: 05/14/18 12:15 Dose: 1 each Senna/Docusate Sodium (Senokot-S) 1 - 2 tab PO BID DUANE PRN Reason: Protocol Stop: 11/05/18 08:59 Last Admin: 05/14/18 09:57 Dose: Not Given Sitagliptin Phosphate (Januvia) 25 mg PO DAILY@12 [facility] Stop: 11/05/18 11:59 Last Admin: 05/14/18 12:15 Dose: 25 mg Tramadol HCl (Ultram) 50 mg PO HS [facility] Stop: 11/04/18 20:59 Last Admin: 05/13/18 23:01 Dose: Not Given Discontinued Medications Acetaminophen (Tylenol) 1,000 mg PO EDNOW ONE Stop: 05/08/18 00:01 Last Admin: 05/08/18 00:06 Dose: Not Given Furosemide (Lasix Injection) 20 mg IVP EDNOW ONE Stop: 05/08/18 00:07 Last Admin: 05/08/18 00:34 Dose: 20 mg Daptomycin 450 mg/ Sodium (Chloride) 109 mls @ 218 mls/hr IV Q48H [facility] Stop: 06/07/18 12:59 Last Admin: 05/10/18 17:34 Dose: 109 mls Daptomycin 450 mg/ Sodium (Chloride) 109 mls @ 218 mls/hr IV DAILY@1600 [facility] Stop: 05/11/18 16:01 Last Admin: 05/11/18 18:03 Dose: 109 mls Daptomycin 450 mg/ Sodium (Chloride) 109 mls @ 218 mls/hr IV DAILY@1800 DUANE Stop: 06/14/18 20:00 Last Admin: 05/13/18 17:44 Dose: 109 mls Ondansetron HCl (Zofran) 4 mg IVP Q4HRS PRN PRN Reason: Nausea/Vomiting, Can't Take PO Stop: 11/04/18 00:57 Last Admin: 05/08/18 02:30 Dose: 4 mg Potassium Chloride (Klor-Con) 20 meq PO ONCE ONE Stop: 05/13/18 15:40 Last Admin: 05/13/18 15:59 Dose: 20 meq Potassium Chloride (Klor-Con) 20 meq PO ONCE ONE Stop: 05/14/18 10:00 Last Admin: 05/14/18 12:15 Dose: 20 meq Point of Care Test Results: Chemistry 05/07/18 05/07/18 23:42 23:07 POC Sodium 139 mEq/L mEq/L (135-145) POC Potassium 4.1 mEq/L mEq/L (3.3-5.0) POC Chloride 102 mEq/L mEq/L (97-110) POC Total CO2 23 mEq/L mEq/L (22-31) POC BUN 32 mg/dL H mg/dL (7-23) POC Creatinine 2.0 mg/dL H mg/dL (0.6-1.0) POC Glucose 146 mg/dL H mg/dL (70-100) POC Troponin I 0.00 ng/mL ng/mL (0.00-0.08) ISTAT H&H 05/07/18 23:07 POC Hgb 10.5 gm/dL L gm/dL (12.6-16.3) POC Hct 31 % L % (38-47) Departure - Departure Disposition: [facility] Inpatient Acute Clinical Impression: Hypoxia, Shortness of breath, Renal insufficiency Pulmonary edema Qualifiers: Chronicity: acute Qualified Code(s): J81.0 - Acute pulmonary edema Condition: Fair Report Scribed for: Geneva Jose Report Scribed by: Taylor Brown Date of Report: 05/07/18 Time of Report: 22:55 Physician Review and Approval Statement: 05/07/18 22:32 Portions of this note were transcribed by the medical case manager. I, Dr. Geneva Jose, personally performed the history, physical exam, and medical decision- making; and confirmed the accuracy of the information in the transcribed note. ( Geneva Jose)
[2018-05-07 23:14] LABS: PLATELET COUNT 189 10^3/uL (150-400)
--- NOTE | 2018-05-07 23:29 | CPEKG ---
Test Reason : OPEN Blood Pressure : / mmHG Vent. Rate : 066 BPM Atrial Rate : 066 BPM P-R Int : 203 ms QRS Dur : 092 ms QT Int : 468 ms P-R-T Axes : 063 046 011 degrees QTc Int : 491 ms Sinus rhythm Probable left atrial enlargement Low voltage, extremity leads Borderline prolonged QT interval Confirmed by Salomón Henry ([id number]) on 05/07/2018 11:28:19 PM Referred By: SALOMÓN HENRY Confirmed By:Salomón Henry
[2018-05-08] MEDS ORDERED: ACETAMINOPHEN 500 MG TAB PO ONE
[2018-05-08] MEDS ORDERED: FUROSEMIDE 20 MG/2 ML VIAL IVP ONE (00:06)
[2018-05-08] MEDS ORDERED: ONDANSETRON DISINTEGRATING 4 MG TAB PO PRN (00:58)
[2018-05-08] MEDS ORDERED: ONDANSETRON 4 MG/2 ML VIAL IVP PRN (00:58)
[2018-05-08 06:29] LABS: PLATELET COUNT 201 10^3/uL (150-400)
--- NOTE | 2018-05-08 07:37 | PDGENHP ---
History and Physical - Chief Complaint Shortness of breath and swelling - History of Present Illness Source-patient provides history appears reliable. Patient's son is at bedside supplements some details. EMR was reviewed and case discussed with ED provider. HPI-this is a very pleasant 73-year-old female with past medical history significant for paroxysmal atrial fibrillation on Eliquis, chronic pain, CAD, dm 2, HTN, HLD, macular degeneration, CKD, ROSITA, mild mitral valve regurg without any history of CHF who presents emergency department today with complaints of 1-2 day history of progressive dyspnea and lower extremity edema. On 04/29/2018 patient underwent a right TKA revision at [facility]. During this hospital stay patient had a tissue culture returned positive for Enterococcus. Per report patient's orthopedic surgeon had sent tissue sample for culture as this is the knee revision. She has subsequently had a PICC placed and patient has been on and ampicillin continuous infusion for the last 5 days. Yesterday patient noted that she had significantly increased fatigue and some shortness of breath. She went to physical therapy and was noted to be quite orthopneic and dyspneic. Patient notes that her O2 sats at home had been approximately 77% on oxygen which she wears at HS for ROSITA. Patient denies any fevers or chills. Nonproductive cough. No chest pain or palpitations. Of note patient also reports that 2 days prior to her symptom onset she did experience tachycardia and exacerbation of atrial fibrillation. Patient did not go to the emergency department and she had been continuing to treat her symptoms with her home medications. Patient also notes that she has had decreased appetite just the last 24 hr. During her hospital stay she was given meloxicam for pain control. She states that she did not continue this at home. She does have a history of CKD and is followed by Dr. Bruno. History Information - Allergies/Home Medication List Allergies/Adverse Reactions: Iodinated Contrast- Oral and IV Dye Allergy (Severe, Verified 05/07/18 22:25) Swelling/neck,face,throat nitrofurantoin [From Macrobid] Allergy (Severe, Verified 05/07/18 22:25) Swelling/neck,face,throat Home Medications: Amlodipine Besylate/Benazepril [Amlodipine-Benazepril 10-20 mg] 1 each PO DAILY 11/07/16 [Last Taken 05/07/18 12:00] Apixaban [Eliquis] 5 mg PO BID 11/07/16 [Last Taken 05/07/18 12:00] Cholecalciferol Vit D3 [Vitamin D3 2000 units tab (OTC)] 2,000 units PO DAILY@ 12 11/07/16 [Last Taken 1 Week Ago ~04/18/17] Dronedarone HCl [Multaq 400 mg (*)] 400 mg PO BIDMEAL 11/07/16 [Last Taken 05/07 12:00] Herbals/Supplements -Info Only 1 ea PO DAILY 11/07/16 [Last Taken 1 Week Ago ~] Metoprolol Succinate Xr [Toprol Xl 50 mg (*)] 50 mg PO BIDMEAL 11/07/16 [Last Taken 05/07/18 12:00] Rosuvastatin Calcium [Crestor 20mg (*)] 20 mg PO Q2D@18 11/07/16 [Last Taken 1 Day Ago ~04/24/17] sitaGLIPtin PHOSPHATE [Januvia 25 MG (*)] 25 mg PO DAILY@04/13/17 [Last Taken 05/06/18] Meloxicam 7.5 mg PO DAILY@12 05/07/18 [Last Taken 05/07/18] traMADol [Ultram 50 mg (*)] 50 mg PO HS 05/07/18 [Last Taken 05/06/18] Acetaminophen [Tylenol ES 500 mg (*)] 500 mg PO BID 05/08/18 [Last Taken 12:00] C/E/Zn/Cu/OM3/DHA/EPA/LUT/ZEAX [Preservision Areds 2 Softgel] 1 each PO DAILY@ 12 05/08/18 [Last Taken Unknown] Loperamide HCl [Imodium 2 mg (*)] 2 mg PO PRN PRN 05/08/18 [Last Taken Unknown] Rosuvastatin Calcium [Crestor 40mg (*)] 40 mg PO Q2D@18 05/08/18 [Last Taken Unknown] I have personally reviewed and updated: family history, medical history, social history, surgical history - Past Medical History Additional medical history: Chronic pain, paroxysmal atrial fibrillation, CAD, dm 2, HTN, HLD, macular degeneration, CKD stage unknown, mild mitral regurg, ROSITA on CPAP and oxygen. - Surgical History Additional surgical history: Right total knee arthroplasty in 2017 with recent revision as noted per HPI, hysterectomy and oophorectomy for ovarian cancer, cataract surgery - Family History Additional family history: Mother brother and sister with CAD. Mother with history CVA. - Social History Smoking Status: Never smoked Alcohol Use: None Drug Use: None Additional social history: Cor status-full. Review of Systems Review of Systems: ROS: 10pt was reviewed & negative except for what was stated in HPI & below Constitutional: Reports: malaise. Denies: chills, fever EENMT: Reports: no symptoms. Denies: nose congestion, throat swelling Cardiac: Reports: edema, irregular heart rate, palpitations (Two days ago.). Denies: chest pain, lightheadedness Respiratory: Reports: orthopnea, shortness of breath. Denies: wheezing Gastrointestinal: Reports: no symptoms, diarrhea (Several days after initiation of ampicillin continuous infusion.), other (Decreased appetite) Genitourinary: Reports: no symptoms, other (decreased urine output last 24 hr.) Muscolosketal: Reports: joint pain Skin: Reports: other (Right knee incision site clean no drainage.) Neurological: Reports: no symptoms Hematologic/Lymphatic: Reports: anemia, easy bruising Physical Exam Physical Exam: Selected Entries 05/07/18 22:18 Blood Pressure Automatic Method Heart Rate 72 Respiratory 16 Rate O2 Sat (%) 90 L Temperature (C) 37.1 C Blood Pressure 147/57 H Mean Arterial 87 Pressure (MAP) O2 Delivery Room Air Mode Temperature Oral Source Temp Pulse Resp BP Pulse Ox 37.7 C 67 25 H 140/64 H 97 05/08/18 06:58 05/08/18 06:58 05/08/18 06:58 05/08/18 06:58 05/08/18 06:58 O2 (L/minute) 4 Constitutional: no apparent distress, chronically ill appearing, obese, other ( Pleasant elderly female is sitting up in bed. Son at bedside.) Eyes: PERRL (Lens reflex appreciated bilaterally.), anicteric sclera, EOMI, No scleral injection Ears, Nose, Mouth, Throat: dry mucous membranes, No poor dentition Cardiovascular: regular rate and rhythym (Slightly distant heart sounds.), pulses symmetric bilaterally, edema (2+ pitting edema up to proximal legs. Increased around the right knee incision site compared to left. No calf pain) Peripheral Pulses: 1+: dorsalis-pedis (R), dorsalis-pedis (L) Respiratory: no respiratory distress, reduced air movement (Patient with some increased work of breathing with movement but no acute distress.), inspiratory crackles, No expiratory wheeze Gastrointestinal: normoactive bowel sounds, soft, non-tender abdomen, no palpable masses, No distension Genitourinary: no bladder tenderness, No farley in urethra Skin: warm, normal color, other (Right knee incision site is bandaged intact. She has surrounding contusions in various stages healing. Note oozing or bleeding.) Musculoskeletal: pain with ROM (Right knee), generalized weakness (Patient is able to sit up independently moves independently.) Neurologic: AAOx3, sensation intact bilaterally, other (Grossly nonfocal.), No facial droop Psychiatric: interacting appropriately, not anxious, not encephalopathic, thought process linear Lab Data & Imaging Review 05/08/18 06:20 05/08/18 06:20 WBC 13.35 10^3/uL (3.80-9.50) H 05/08/18 06:20 RBC 3.26 10^6/uL (4.18-5.33) L 05/08/18 06:20 Hgb 9.8 g/dL (12.6-16.3) L 05/08/18 06:20 POC Hgb 10.5 gm/dL (12.6-16.3) L 05/07/18 23:07 Hct 30.1 % (38.0-47.0) L 05/08/18 06:20 POC Hct 31 % (38-47) L 05/07/18 23:07 MCV 92.3 fL (81.5-99.8) 05/08/18 06:20 MCH 30.1 pg (27.9-34.1) 05/08/18 06:20 MCHC 32.6 g/dL (32.4-36.7) 05/08/18 06:20 RDW 13.8 % (11.5-15.2) 05/08/18 06:20 Plt Count 201 10^3/uL (150-400) 05/08/18 06:20 MPV 11.0 fL (8.7-11.7) 05/08/18 06:20 Neut % (Auto) 87.0 % (39.3-74.2) H 05/08/18 06:20 Lymph % (Auto) 5.2 % (15.0-45.0) L 05/08/18 06:20 [place] % (Auto) 7.2 % (4.5-13.0) 05/08/18 06:20 Eos % (Auto) 0.1 % (0.6-7.6) L 05/08/18 06:20 Baso % (Auto) 0.1 % (0.3-1.7) L 05/08/18 06:20 Nucleat RBC Rel Count 0.0 % (0.0-0.2) 05/08/18 06:20 Absolute Neuts (auto) 11.61 10^3/uL (1.70-6.50) H 05/08/18 06:20 Absolute Lymphs (auto) 0.69 10^3/uL (1.00-3.00) L 05/08/18 06:20 Absolute Monos (auto) 0.96 10^3/uL (0.30-0.80) H 05/08/18 06:20 Absolute Eos (auto) 0.01 10^3/uL (0.03-0.40) L 05/08/18 06:20 Absolute Basos (auto) 0.02 10^3/uL (0.02-0.10) 05/08/18 06:20 Absolute Nucleated RBC 0.00 10^3/uL (0-0.01) 05/08/18 06:20 Immature Gran % 0.4 % (0.0-1.1) 05/08/18 06:20 Immature Gran # 0.06 10^3/uL (0.00-0.10) 05/08/18 06:20 POC Sodium 139 mEq/L (135-145) 05/07/18 23:07 Sodium 135 mEq/L (135-145) 05/08/18 06:20 POC Potassium 4.1 mEq/L (3.3-5.0) 05/07/18 23:07 Potassium 4.8 mEq/L (3.5-5.2) 05/08/18 06:20 POC Chloride 102 mEq/L (97-110) 05/07/18 23:07 Chloride 105 mEq/L (97-110) 05/08/18 06:20 Carbon Dioxide 25 mEq/l (22-31) 05/08/18 06:20 POC Total CO2 23 mEq/L (22-31) 05/07/18 23:07 Anion Gap 5 mEq/L (6-14) L 05/08/18 06:20 POC BUN 32 mg/dL (7-23) H 05/07/18 23:07 BUN 38 mg/dL (7-23) H 05/08/18 06:20 Creatinine 2.2 mg/dL (0.6-1.0) H 05/08/18 06:20 POC Creatinine 2.0 mg/dL (0.6-1.0) H 05/07/18 23:07 Estimated GFR 22 05/08/18 06:20 Glucose 143 mg/dL (70-100) H 05/08/18 06:20 POC Glucose 146 mg/dL (70-100) H 05/07/18 23:07 Calcium 7.6 mg/dL (8.5-10.4) L 05/08/18 06:20 Phosphorus 5.8 mg/dL (2.5-4.5) H 05/08/18 06:20 Magnesium 2.3 mg/dL (1.6-2.3) 05/08/18 06:20 POC Troponin I 0.00 ng/mL (0.00-0.08) 05/07/18 23:42 NT-Pro-B Natriuret Pep 20337 pg/mL (0-450) H 05/07/18 23:00 TSH 0.375 uIU/mL (0.465-4.680) L 05/08/18 06:20 Urine Color YELLOW 05/08/18 02:50 Urine Appearance MODERATELY TURBID 05/08/18 02:50 Urine pH 5.0 (5.0-7.5) 05/08/18 02:50 Ur Specific [place] 1.016 (1.002-1.030) 05/08/18 02:50 Urine Protein 2+ (NEGATIVE) H 05/08/18 02:50 Urine Ketones NEGATIVE (NEGATIVE) 05/08/18 02:50 Urine Blood 2+ (NEGATIVE) H 05/08/18 02:50 Urine Nitrate NEGATIVE (NEGATIVE) 05/08/18 02:50 Urine Bilirubin NEGATIVE (NEGATIVE) 05/08/18 02:50 Urine Urobilinogen NEGATIVE EU (0.2-1.0) 05/08/18 02:50 Ur Leukocyte Esterase NEGATIVE (NEGATIVE) 05/08/18 02:50 Urine RBC 15-25 /hpf (0-3) H 05/08/18 02:50 Urine WBC 15-25 /hpf (0-3) H 05/08/18 02:50 Ur Epithelial Cells TRACE /lpf (NONE-1+) 05/08/18 02:50 Urine Bacteria TRACE /hpf (NONE SEEN) H 05/08/18 02:50 Urine Mucus TRACE /lpf (NONE-1+) 05/08/18 02:50 Ur Random Creatinine 74.3 mg/dL 05/08/18 02:50 Ur Random Sodium 60 mEq/L (30-90) 05/08/18 02:50 Urine Glucose NEGATIVE (NEGATIVE) 05/08/18 02:50 Imaging Review: Chest x-ray reviewed myself. Cardiomegaly with cephalization pulmonary edema and effusions. Preliminary report on patient's bilateral ultrasounds was negative for DVT but did show subcutaneous edema. Visualized and Interpreted Chest x-ray results: Yes Chest X-Ray results: no infiltrate, effusion Visualized and Interpreted imaging results: Yes Visualized and Interpreted EKG results: Yes EKG additional interpertation: NSR in the 60s. Lad. QTC 491. T-wave inversion lead III otherwise no acute ST changes. Assessment & Plan Assessment: This is a very pleasant 73-year-old female with past medical history significant for paroxysmal atrial fibrillation on Eliquis, chronic pain, CAD, dm 2, HTN, HLD, macular degeneration, CKD, ROSITA, mild mitral valve regurg without any history of CHF who presents emergency department today with complaints of 1-2 day history of progressive dyspnea and lower extremity edema. #Hypoxia (Acute) - in setting of volume overload. O2 sats have improved supplemental oxygen. Continue patient's CPAP at HS as tolerated. #Pulmonary edema (Acute) - patient with a recent echocardiogram that did not show any diastolic or systolic dysfunction. Troponin is negative the patient without any complaints of chest pain. Likely secondary to pulmonary edema volume overload. Status post a single dose of Lasix in the emergency department. Patient still without significant volume output. See plan below for acute on chronic renal disease. #Shortness of breath (Acute) - secondary to volume overload. Supplemental oxygen titrate as tolerated. Status post Lasix as noted below. #Acute on chronic kidney disease - baseline creatinine is unknown and patient does not recall. In will try to get records from [place]. Differential diagnosis including pre renal versus ATN. Patient reports that she had was given meloxicam during her hospital stay, she was also started on ampicillin continuous infusion for positive cultures from her right knee. Additionally patient also reports that she developed AFib with RVR was managing at home. There could be component of decreased perfusion. She has had decreased urine output. She did receive dose of Lasix in the emergency department and has not had significant amount of urine output. Will calculate FENA and obtain a renal ultrasound. Patient reporting that she feels like she feels like she would start to void. Will monitor her in's and out's closely. Patient followed by Dr. Bruno. #anemia - likely postoperative changes versus component of chronic disease. Patient without any evidence of active bleeding. Continue Eliquis. Chronic medical issues #Paroxysmal atrial fibrillation - patient currently in normal sinus rhythm. Patient took her evening dose of metoprolol and Multaq. Patient is followed by Dr. Luo. Continue Eliquis. # dm 2 - resume Januvia # benign essential hypertension continue metoprolol. Hold patient's benazepril continue amlodipine when med rec is available. #CAD/HLD - continue beta-rosalba holding OFELIA-inhibitor, continue statin. FEN - holding IVF except for meds. monitor electrolytes. cardiac diet. PPX - patient on eliquis COR - FULL Dispo - Patient admitted to inpatient status on PCU floor for close cardiac monitoring.
--- NOTE | 2018-05-08 09:30 | PDMN ---
Medical Necessity Medical necessity: [facility] Pulmonary Disease: 73 yo presents w/ dyspnea and BLE edema. Eval reveals acute hypoxia in setting of volume overload and acute pulmonary edema and effusions. Imaging shows cardiomegaly. Oxygen and IV diuretics started. No sig urine output post IV Lasix noted. Creat 2.2 w/ unknown baseline. Renal U/S ordered. Cont TELE monitoring. Meets [facility] IP criteria for [facility]GPUL w/ severe resp findings: resp distress - dyspnea and hypoxemia. Hx afib, CAD, DMII HTN, HLD, CKD, ROSITA, MV regurg, recent TKA w/ + enterococcus w/ PICC in place receiving IV antibx at home.
[2018-05-08] MEDS ORDERED: NS IV SCH (10:00)
[2018-05-08] MEDS ORDERED: AMPICILLIN IV SCH (10:00)
--- NOTE | 2018-05-08 10:14 | PDCONSULT ---
[employer] Note: Renal Consult Note - Chief Complaint Trouble breathing - History of Present Illness The patient is a 73 y/o F with a known h/o atrial fibrillation, CAD, DM, and CKD who presented to the ed yesterday with 1-2 days of dyspnea and increased swelling in her legs. She recently underwent a R TKA at [place] complicated by an enterococcal infection and has been on ampicillin IV for 5 days. She went to PT yesterday and was found to have increased O2 requirments and significant swelling. She did c/o of some palpitations. Has been on meloxicam for pain, however thinks she has only taken 4 doses. Cr was near baseline recently at 0.8mg/dL in April and she sees Dr. Bruno as an outpatient for a h/o RICK 2/2 to UTI's. This am, she states that she was sure she had an infection about a week prior to her surgery but the culture was negative. She noticed decreased UO for the past 48h and denies fevers. She feels completely exhausted. She has been using O2 at night since her surgery and also wears a CPAP. Other ROS negative. History Information - Allergies/Home Medication List Iodinated Contrast- Oral and IV Dye Allergy (Severe, Verified 05/07/18 22:25) Swelling/neck,face,throat nitrofurantoin [From Macrobid] Allergy (Severe, Verified 05/07/18 22:25) Swelling/neck,face,throat Home Medications: Amlodipine Besylate/Benazepril [Amlodipine-Benazepril 10-20 mg] 1 each PO DAILY 11/07/16 [Last Taken 05/07/18 12:00] Apixaban [Eliquis] 5 mg PO BID 11/07/16 [Last Taken 05/07/18 12:00] Cholecalciferol Vit D3 [Vitamin D3 2000 units tab (OTC)] 2,000 units PO DAILY@ 12 11/07/16 [Last Taken 1 Week Ago ~04/18/17] Dronedarone HCl [Multaq 400 mg (*)] 400 mg PO BIDMEAL 11/07/16 [Last Taken 05/07 12:00] Herbals/Supplements -Info Only 1 ea PO DAILY 11/07/16 [Last Taken 1 Week Ago ~] Metoprolol Succinate Xr [Toprol Xl 50 mg (*)] 50 mg PO BIDMEAL 11/07/16 [Last Taken 05/07/18 12:00] Rosuvastatin Calcium [Crestor 20mg (*)] 20 mg PO Q2D@18 11/07/16 [Last Taken 1 Day Ago ~04/24/17] sitaGLIPtin PHOSPHATE [Januvia 25 MG (*)] 25 mg PO DAILY@12 04/13/17 [Last Taken 05/06/18] Meloxicam 7.5 mg PO DAILY@12 05/07/18 [Last Taken 05/07/18] traMADol [Ultram 50 mg (*)] 50 mg PO HS 05/07/18 [Last Taken 05/06/18] Acetaminophen [Tylenol ES 500 mg (*)] 500 mg PO BID 05/08/18 [Last Taken 12:00] C/E/Zn/Cu/OM3/DHA/EPA/LUT/ZEAX [Preservision Areds 2 Softgel] 1 each PO DAILY@ 12 05/08/18 [Last Taken Unknown] Loperamide HCl [Imodium 2 mg (*)] 2 mg PO PRN PRN 05/08/18 [Last Taken Unknown] Rosuvastatin Calcium [Crestor 40mg (*)] 40 mg PO Q2D@18 05/08/18 [Last Taken Unknown] - Past Medical History Chronic pain, paroxysmal atrial fibrillation, CAD, dm 2, HTN, HLD, macular degeneration, CKD stage unknown, mild mitral regurg, ROSITA on CPAP and oxygen. - Surgical History Right total knee arthroplasty in 2017 with recent revision as noted per HPI, hysterectomy and oophorectomy for ovarian cancer, cataract surgery - Family History Mother brother and sister with CAD. Mother with history CVA. - Social History Smoking Status: Never smoked Alcohol Use: None Drug Use: None Additional social history: Cor status-full. Review of Systems Negative except as per HPI. Objective: Temp Pulse Resp BP Pulse Ox 37.7 C 67 25 H 140/64 H 97 05/08/18 06:58 05/08/18 06:58 05/08/18 06:58 05/08/18 06:58 05/08/18 06:58 O2 (L/minute) 4 Physical Exam: Gen: A+Ox3, mild distress HEENT: MMM, no jaundice Neck: Supple, no lymphadenopathy CV: Irregular, no rub RESP: CTA b/l, no wheezing ABD: Soft, NT, ND NEURO: Non-focal EXT: Knee swelling with non-pitting edema b/l PSYCH: Affect appropriate, cooperative SKIN: No rashes noted, warm and dry Labs: WBC 13.35 10^3/uL (3.80-9.50) H 05/08/18 06:20 RBC 3.26 10^6/uL (4.18-5.33) L 05/08/18 06:20 Hgb 9.8 g/dL (12.6-16.3) L 05/08/18 06:20 POC Hgb 10.5 gm/dL (12.6-16.3) L 05/07/18 23:07 Hct 30.1 % (38.0-47.0) L 05/08/18 06:20 POC Hct 31 % (38-47) L 05/07/18 23:07 MCV 92.3 fL (81.5-99.8) 05/08/18 06:20 MCH 30.1 pg (27.9-34.1) 05/08/18 06:20 MCHC 32.6 g/dL (32.4-36.7) 05/08/18 06:20 RDW 13.8 % (11.5-15.2) 05/08/18 06:20 Plt Count 201 10^3/uL (150-400) 05/08/18 06:20 MPV 11.0 fL (8.7-11.7) 05/08/18 06:20 Neut % (Auto) 87.0 % (39.3-74.2) H 05/08/18 06:20 Lymph % (Auto) 5.2 % (15.0-45.0) L 05/08/18 06:20 [place] % (Auto) 7.2 % (4.5-13.0) 05/08/18 06:20 Eos % (Auto) 0.1 % (0.6-7.6) L 05/08/18 06:20 Baso % (Auto) 0.1 % (0.3-1.7) L 05/08/18 06:20 Nucleat RBC Rel Count 0.0 % (0.0-0.2) 05/08/18 06:20 Absolute Neuts (auto) 11.61 10^3/uL (1.70-6.50) H 05/08/18 06:20 Absolute Lymphs (auto) 0.69 10^3/uL (1.00-3.00) L 05/08/18 06:20 Absolute Monos (auto) 0.96 10^3/uL (0.30-0.80) H 05/08/18 06:20 Absolute Eos (auto) 0.01 10^3/uL (0.03-0.40) L 05/08/18 06:20 Absolute Basos (auto) 0.02 10^3/uL (0.02-0.10) 05/08/18 06:20 Absolute Nucleated RBC 0.00 10^3/uL (0-0.01) 05/08/18 06:20 Immature Gran % 0.4 % (0.0-1.1) 05/08/18 06:20 Immature Gran # 0.06 10^3/uL (0.00-0.10) 05/08/18 06:20 POC Sodium 139 mEq/L (135-145) 05/07/18 23:07 Sodium 135 mEq/L (135-145) 05/08/18 06:20 POC Potassium 4.1 mEq/L (3.3-5.0) 05/07/18 23:07 Potassium 4.8 mEq/L (3.5-5.2) 05/08/18 06:20 POC Chloride 102 mEq/L (97-110) 05/07/18 23:07 Chloride 105 mEq/L (97-110) 05/08/18 06:20 Carbon Dioxide 25 mEq/l (22-31) 05/08/18 06:20 POC Total CO2 23 mEq/L (22-31) 05/07/18 23:07 Anion Gap 5 mEq/L (6-14) L 05/08/18 06:20 POC BUN 32 mg/dL (7-23) H 05/07/18 23:07 BUN 38 mg/dL (7-23) H 05/08/18 06:20 Creatinine 2.2 mg/dL (0.6-1.0) H 05/08/18 06:20 POC Creatinine 2.0 mg/dL (0.6-1.0) H 05/07/18 23:07 Estimated GFR 22 05/08/18 06:20 Glucose 143 mg/dL (70-100) H 05/08/18 06:20 POC Glucose 146 mg/dL (70-100) H 05/07/18 23:07 Calcium 7.6 mg/dL (8.5-10.4) L 05/08/18 06:20 Phosphorus 5.8 mg/dL (2.5-4.5) H 05/08/18 06:20 Magnesium 2.3 mg/dL (1.6-2.3) 05/08/18 06:20 POC Troponin I 0.00 ng/mL (0.00-0.08) 05/07/18 23:42 NT-Pro-B Natriuret Pep 23358 pg/mL (0-450) H 05/07/18 23:00 TSH 0.375 uIU/mL (0.465-4.680) L 05/08/18 06:20 Urine Color YELLOW 05/08/18 02:50 Urine Appearance MODERATELY TURBID 05/08/18 02:50 Urine pH 5.0 (5.0-7.5) 05/08/18 02:50 Ur Specific [place] 1.016 (1.002-1.030) 05/08/18 02:50 Urine Protein 2+ (NEGATIVE) H 05/08/18 02:50 Urine Ketones NEGATIVE (NEGATIVE) 05/08/18 02:50 Urine Blood 2+ (NEGATIVE) H 05/08/18 02:50 Urine Nitrate NEGATIVE (NEGATIVE) 05/08/18 02:50 Urine Bilirubin NEGATIVE (NEGATIVE) 05/08/18 02:50 Urine Urobilinogen NEGATIVE EU (0.2-1.0) 05/08/18 02:50 Ur Leukocyte Esterase NEGATIVE (NEGATIVE) 05/08/18 02:50 Urine RBC 15-25 /hpf (0-3) H 05/08/18 02:50 Urine WBC 15-25 /hpf (0-3) H 05/08/18 02:50 Ur Epithelial Cells TRACE /lpf (NONE-1+) 05/08/18 02:50 Urine Bacteria TRACE /hpf (NONE SEEN) H 05/08/18 02:50 Urine Mucus TRACE /lpf (NONE-1+) 05/08/18 02:50 Ur Random Creatinine 74.3 mg/dL 05/08/18 02:50 Ur Random Sodium 60 mEq/L (30-90) 05/08/18 02:50 Urine Glucose NEGATIVE (NEGATIVE) 05/08/18 02:50 Imaging: Renal US results reviewed. Assessment/Plan: The patient is a 73 y/o F with a known h/o CKD Stage II/III and recent who presented to the ED c/o increased swelling, SOB, and decreased urination and is found to have RICK. Etiology unclear and UA shows proteinuria, RBC's as well as WBC's which could be consistent with AIN 2/2 to abx, PIGN, ATN or possibly a UTI. RICK on CKD -baseline Cr 0.8-1.0mg/dL, now up >2 -oliguric, please do PVR's qshift -renal US reviewed -avoid NSAIDs and other nephrotoxins (ie meloxicam) -changing abx per ID, appreciated -sending urine culture, urine sodium, and urine protein:cr, complements, ASO -will need to consider a biopsy, discussed the possibility of dialysis however no current indication and patient is agreeable -continue to monitor HTN/vol -given IV lasix with minimal UO yesterday -no urine in bladder would hold IV diuretics for now -may continue home amlodipine and BB BMD -renal diet -will check phos Consult appreciated, will continue to follow. Please contact if ?'s #. Kahlil Calhoun, DO [facility]
--- NOTE | 2018-05-08 12:46 | HOSPPROG ---
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 Brea Colvin and Dr. 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, my review: Sinus Exam: alert oriented looks tired but relaxed skin febrile dry color ok overall though her right leg has some discoloration from postop hematoma resps not labored lungs diffuse fine rales heart regular abd soft nondistended nontender, bowel sounds present limbs her rate knee incision looks excellent, there is still some discoloration from postop bleeding in the leg iv site ok I reviewed results from an outpatient echocardiogram in April of this year showing ejection fraction 65%, right-sided pressures 45, diastolic dysfunction and mild to moderate MR as the only valvular abnormality noted I reviewed abdominal ultrasound images and reports, the kidneys are echo graphically normal with no evidence of hydronephrosis I reviewed images from yesterday's chest x-ray and agree that this shows pulmonary edema Lab data: White blood cell count increased to 13,000 Stable anemia BUN creatinine further increased at 38 and 2.2 Electrolytes in good range Objective: Vital Signs Temp Pulse Resp BP Pulse Ox 38.0 C 69 20 130/61 H 93 05/08/18 11:34 05/08/18 11:34 05/08/18 11:34 05/08/18 11:34 05/08/18 11:34 Laboratory Results 05/08/18 06:20 05/08/18 06:20 05/07/18 05/08/18 05/09/18 06:59 06:59 06:59 Output Total 100 Balance -100 - Time Spent With Patient Time Spent with Patient: greater than 35 minutes Time Spent with Patient: Greater than 35 minutes spent on this patients care, greater than 50% of time spent counseling, educating, and coordinating care regarding the above mentioned plan. ICD10 Worksheet Patient Problems: Problems Problem Status Onset Hypoxia Acute Pulmonary edema Acute Shortness of breath Acute Diarrhea Acute chronic disease mgmt/transitional care Acute
[2018-05-08] MEDS ORDERED: LOPERAMIDE HCL 2 MG CAP PO PRN (13:12)
[2018-05-08 14:27] LABS: CREATINE KINASE 36 IU/L (0-156)
[2018-05-08] MEDS: DAPTOmycin 450 MG in NS 100 ML IV SCH (14:34)
--- NOTE | 2018-05-08 14:44 | GCON ---
[f rep st] CONSULTATION INFECTIOUS DISEASE CONSULTATION DATE OF CONSULTATION: 05/08/2018 REASON FOR CONSULTATION: Management of right septic total knee arthroplasty with Enterococcus in the setting of worsening renal function. HISTORY OF PRESENT ILLNESS: 73-year-old woman with multiple medical problems, including coronary artery disease, atrial fibrillation on chronic anticoagulation, and chronic kidney disease who underwent a right total knee arthroplasty in December of 2016. Postoperatively, she developed increasing ankle pain, and as a result, underwent a right ankle replacement in Apr 2017. She had persistent foot pain and it was identified that she had loosening of her right total knee arthroplasty hardware. Patient underwent an aspirate of this joint 02/19/2018, with 521 white cells, 21% PMNs with negative cultures. Therefore, due to loosening of her hardware and chronic discomfort related to this, the patient underwent a revision on 04/24/2018, and intraoperative operative cultures were taken. Subsequently, tissue cultures grew Enterococcus walsh susceptible with a SANDRITA to ampicillin less than 2 and SANDRITA to vancomycin equal to 4. The patient was seen by an outside ID group on 05/03/2018, and a PICC line was placed and patient was started on IV ampicillin 12 g IV continuous infusion. A couple of days after starting that, patient developed dyspnea on exertion, orthopnea, and decreased urination, which she noticed on the . She also had worsening chills and increased lower extremity edema. She denies hematuria, but she had mild dysuria. She did not document any fevers at home. Due to progressive dyspnea on exertion, patient presented to the emergency room 05/07/2018. She was found to have a creatinine of 2 and was oliguric with an elevated BUN. A chest x-ray was also performed as patient was more hypoxic than her baseline with some evidence of pulmonary vascular redistribution consistent with CHF. Patient was admitted for further management of acute renal failure and ID was consulted for antibiotic management. PAST MEDICAL HISTORY: Paroxysmal atrial fibrillation, coronary artery disease, mild mitral insufficiency with an ejection fraction of 60%, type 2 diabetes, hypertension, hyperlipidemia, ovarian cancer, history of renal dysfunction managed by Dr. Bruno, interstitial cystitis, and history of recurrent bladder infections and kidney infections. PAST SURGICAL HISTORY: Hysterectomy and oophorectomy and cataract surgery, as well as surgeries mentioned in HPI. FAMILY HISTORY: Positive for diabetes, hypertension, coronary artery disease, and CVA. SOCIAL HISTORY: She never smoked. No alcohol. 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 She is originally from [place]. Her daughter is present at bedside. She is retired. Currently, no recent travel. ALLERGIES: Patient has anaphylaxis to Macrobid and contrast dye. She previously carried a penicillin reaction, but underwent skin testing and found that she did not have an IgE mediated reaction. She has been receiving penicillin when she has dental care without difficulty. MEDICATIONS: Patient received daily meloxicam 7.5 mg for 4 to 6 days prior to admission. She is on Januvia, Crestor 20 alternating with 40, metoprolol 50 p.o. b.i.d. Eliquis 5 mg twice daily, amlodipine/benazepril 10/20 one tablet daily, and she was on ampicillin 12 g IV continuous infusion planned stop date 06/14/2018. REVIEW OF SYSTEMS: A complete 10-point review of systems was performed and is negative, except as mentioned in the HPI. The patient did note a couple days of diarrhea that have now resolved. PHYSICAL EXAM: VITAL SIGNS: T-current 38, blood pressure 130/61, heart rate 67 , respiratory rate 20, saturation 93% on 4 L. GENERAL: This is a very pleasant , somewhat flushed woman, communicating well with articulate speech. HEENT: Dry mucous membranes. Fair dentition. NECK: Supple. No lymphadenopathy. CARDIOVASCULAR: Regular rate and rhythm. A faint 2/6 systolic murmur. CHEST: The patient had crackles in the bilateral lower lung [place] with occasional wheezes, left greater than right. ABDOMEN: Soft, nontender. URINARY: No Grimes in place. EXTREMITIES: Patient had mild lower extremity edema, right slightly worse than left. Incision over her right knee was healing remarkably well. No abraham or obvious stitches in place with some mild ecchymosis. There was no tenderness. There was mild warmth to the leg. Pulses were present bilateral dorsalis pedis. She had a PICC line in place in her left upper extremity which had significant ecchymosis proximally that was nontender. NEUROLOGIC: She is alert and oriented, moving all 4 extremities equally. LABORATORY: White count 11.9 yesterday, today 13.3, hematocrit 30, platelets of 201, 87% neutrophils. Creatinine is 2.2 today with a BUN of 3, phosphorus 5.8. UA showed 2+ protein, 2+ blood, 15 to 25 RBCs, 15 to 25 WBCs, negative glucose. IMAGING: As per HPI. ASSESSMENT AND PLAN: 73-year-old woman with a septic right total knee arthroplasty leading to loosening of her hardware from original surgery 12/18/2017 s/p HWR exchange . Culture showed walsh susceptible Enterococcus. Patient was recently started on high-dose intravenous ampicillin 05/03/2018, and subsequently developed severe dyspnea on exertion, orthopnea, and was found to have oliguric renal failure 05/07. In addition, patient also received nonsteroidal anti-inflammatory drug over this same period of time. # ARF on CRI : DDX acute interstitial nephritis as patient does have hematuria, acute tubular necrosis, as well as glomerular nephritis related to infection. Greatly appreciate Nephrology management. Abx dosing as below. # Enterococcal septic right TKA, HWR in place. No signs of infection at site of recent joint infection. --Agree with minimizing renal toxicity, as well as removing potential insulting antibiotic; therefore, will discontinue ampicillin. If we decide that she has acute interstitial nephritis, probably should avoid penicillin class of antibiotics in the future. --start daptomycin 6 mg/kg intravenous q 48 h based on renal insufficiency. --hold her statin while receiving this therapy and check CK and LFTs. --Reviewed side effects of daptomycin with the patient and her daughter at the bedside, including interstitial pneumonitis and rhabdomyolysis, but also highlighted the reason for changing to this antibiotics due to lack of direct renal toxicity. --Duration of antibiotic therapy for right total knee arthroplasty septic arthritis is 06/14/2018 (6 weeks), and will continue to assess appropriate antibiotic and duration of antibiotic therapy needed. # Fever, leukocytosis: would obtain blood cultures. Concern for PICC line infection, significant trauma at PICC line site. Greater than 70 minutes spent on this patients care, greater than 50% of time spent counseling, educating, and coordinating care regarding the above mentioned plan. Reviewed outside records. We will continue to follow along. /[id number]/MODL MTDD
--- NOTE | 2018-05-08 15:50 | ASMTLACE ---
TOME Acuity / Level of Answers: Yes Care: Did the patient have an inpatient admission? Comorbidities - select Answers: Coronary Artery Disease all that apply Diabetes (uncontrolled or controlled) Moderate or severe liver or renal disease Opioid dependence / Chronic pain Other Notes: HTN; AFib; HLD # of Emergency department Answers: 1-2 visits in the last 6 months Score: 16 Date Signed: 05/08/2018 03:50 PM Electronically Signed By:Adeola Tony
--- NOTE | 2018-05-08 15:56 | ASMTCMCOM ---
CM Note CM Note Notes: Pt is a 73 yo M who presents with SOB and Hypoxia. ID is consulted. No therapies ordered at this time, CM to follow. Plan: TBD. Date Signed: 05/08/2018 03:55 PM Electronically Signed By:CORNELIA Luu
[2018-05-08] MEDS: DRONEDARONE HCL 400 MG TAB PO SCH (17:31)
[2018-05-08] MEDS: METOPROLOL SUCCINATE XR 50 MG TAB PO SCH (17:31)
[2018-05-08] MEDS ORDERED: ROSUVASTATIN CALCIUM 40 MG TAB PO SCH (18:00)
[2018-05-08] MEDS: APIXABAN 5 MG TAB PO SCH (19:36)
[2018-05-09] MEDS: traMADol 50 MG TAB PO SCH (00:55)
[2018-05-09] MEDS: METOPROLOL SUCCINATE XR 50 MG TAB PO SCH (04:44)
[2018-05-09] MEDS: ACETAMINOPHEN 325 MG TAB PO PRN (04:46)
[2018-05-09] MEDS ORDERED: BISACODYL 10 MG SUPP PR PRN (06:17)
[2018-05-09] MEDS ORDERED: LACTULOSE 20 GM/30 ML UDCUP PO PRN (06:17)
[2018-05-09] MEDS ORDERED: POLYETHYLENE GLYCOL 3350 17 GM PKT PO PRN (06:17)
[2018-05-09] MEDS ORDERED: MAGNESIUM HYDROXIDE 30 ML UDCUP PO PRN (06:17)
[2018-05-09 06:41] LABS: PLATELET COUNT 161 10^3/uL (150-400)
[2018-05-09] MEDS: DRONEDARONE HCL 400 MG TAB PO SCH (10:15)
[2018-05-09] MEDS: APIXABAN 5 MG TAB PO SCH (10:16)
[2018-05-09] MEDS: SENNOSIDES/DOCUSATE SODIUM TAB PO SCH (10:16)
--- NOTE | 2018-05-09 10:26 | PCMIDPN ---
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 Feasible the ampicillin caused RICK with whether that is manifesting as glomerular injury or interstitial nephritis is not clear. Daptomycin as an alternative for enterococcal prosthetic joint infection with dose adjustments to be made as kidney function changes. She does not have a peripheral eosinophilia, although that does not rule out interstitial nephritis. 1. Acute kidney injury possibly secondary to ampicillin 2. 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 History of right prosthetic knee joint revision 04/24/2018 4. History of right total knee arthroplasty December 2016 5. History of right total ankle arthroplasty 04/25/2017 without complication 6. Diabetes mellitus, type 2 7. History of verbal penicillin allergy, not confirmed by allergy by allergy testing Plan: 1. Continue daptomycin 450 mg Q 48 hr 2. Check CPK with next labs 3. Discussed potential antibiotic side effects including antibiotic associated diarrhea, myositis, eosinophilic pneumonitis Antolin Veras MD Infectious Diseases 05/09/18 10:39 05/09/18 10:49 Subjective: No fever or chills. Denies diarrhea, nausea, rash. Appetite limited by bloating feeling. No new concerns today. Objective: Vital Signs Temp Pulse Resp BP Pulse Ox 36.6 C 80 18 112/69 94 05/09/18 08:00 05/09/18 08:00 05/09/18 08:00 05/09/18 08:00 05/09/18 08:00 Laboratory Results 05/09/18 06:30 05/09/18 06:30 05/08/18 05/09/18 05/10/18 05:59 05:59 05:59 Intake Total 1500 Output Total 230 Balance 1270 C-Reactive Protein 60.7 mg/L (<10.0) H 05/08/18 14:00 Medications Generic Name Dose Route Start Last Admin Trade Name Freq PRN Reason Stop Dose Admin Daptomycin 450 mg/ Sodium 109 mls @ 218 mls/hr 05/08/18 13:00 05/08/18 14:34 Chloride IV 06/07/18 12:59 109 mls Q48H DUANE Discontinued Medications Generic Name Dose Route Start Last Admin Trade Name Freq PRN Reason Stop Dose Admin AMPICILLIN 12 gm/ Sodium 600 mls @ 24.6 mls/hr 05/08/18 10:00 Chloride IV 11/04/18 09:59 CONT DUANE Microbiology Laboratory Tests 05/08/18 05/08/18 05/08/18 06:20 06:20 14:00 WBC 13.35 H Hgb 9.8 L Plt Count 201 Absolute Neuts (auto) 11.61 H Absolute Lymphs (auto) 0.69 L Creatinine 2.2 H C-Reactive Protein 60.7 H 05/09/18 05/09/18 06:30 06:30 WBC 11.91 H Hgb 8.6 L Plt Count 161 Absolute Neuts (auto) 9.68 H Absolute Lymphs (auto) 0.90 L Creatinine 3.9 H C-Reactive Protein - Physical Exam General Appearance: alert, no apparent distress, non-toxic EENT: No scleral icterus Respiratory: lungs clear, normal breath sounds, No respiratory distress Neck: full range of motion, supple Cardiac/Chest: regular rate, rhythm, No bradycardia, No tachycardia, No diastolic murmur, No systolic murmur Extremities: swelling (Anasarca), other (Right lower extremity with well-healed surgical incision overlying the right ankle arthroplasty site; right knee anterior midline surgical incision with transparent tape overlying a well- approximated incision, no erythema, no areas of fluctuance, no areas of induration, mild tenderness to palpation) Abdomen: non-tender, soft, distended, No guarding Skin: No rash Neuro/Psych: alert, oriented x 3, depressed affect, No confused - Time Spent With Patient Time Spent with Patient: greater than 35 minutes Time Spent with Patient: Greater than 35 minutes spent on this patients care, greater than 50% of time spent counseling, educating, and coordinating care regarding the above mentioned plan. ICD10 Worksheet Patient Problems: Problems Problem Status Onset Hypoxia Acute Pulmonary edema Acute Shortness of breath Acute Diarrhea Acute chronic disease mgmt/transitional care Acute
--- NOTE | 2018-05-09 10:41 | SOAPPROG ---
SOAP Progress Note Assessment/Plan: Assessment: Oliguric RICK, seems temporally related to IV ABX, probably interstitial nephritis +/- ATN (meloxicam) lytes ok volume OK temp 37.9 today Plan: counseled regarding need for dialysis and its indications counseled regarding possible need for kidney biopsy counseled regarding complications of biopsy including: bleeding infection gross hematuria need for blood transfusion need for radiologic or surgical intervention for bleeding need for removal of a damaged kidney possibility of counseled that Iris is at increased risk of bleeding due to her Eliquis would need to be off of anticoagulation for at least 2 days prior to and 2-3 days after the biopsy (total of 5-6 days) would have some increased risk of thrombosis/stroke while off of the anticoagulation Iris is not interested in a biopsy at this point We will have IR place temp HD cath and will start HD either today or tomorrow counseled Iris that she has a high likely hayes of recovering her renal function in the next 90 days or so Follow lytes vol and renal function 05/09/18 10:30 05/09/18 10:44 Subjective: spirits good has many good questions for me, all answered to her satisfaction no cp sob nausea or vomiting appetite returning, she cleaned her plate this morning sleeping OK pain manageable Objective: Vital Signs Temp Pulse Resp BP Pulse Ox 36.6 C 80 18 112/69 94 05/09/18 08:00 05/09/18 08:00 05/09/18 08:00 05/09/18 08:00 05/09/18 08:00 Laboratory Results 05/09/18 06:30 05/09/18 06:30 05/08/18 05/09/18 05/10/18 05:59 05:59 05:59 Intake Total 1500 Output Total 230 Balance 1270 Physical Exam - Physical Exam General Appearance: alert, other (cooperative) Neck: normal inspection Respiratory: No rhonchi, No wheezing, No pleural rub Cardiac/Chest: edema, irregularly irregular, No friction rub Abdomen: normal bowel sounds, non-tender, soft Skin: warm/dry Extremities: swelling Neuro/Psych: alert, normal mood/affect, oriented x 3 ICD10 Worksheet Patient Problems: Problems Problem Status Onset Hypoxia Acute Pulmonary edema Acute Shortness of breath Acute Diarrhea Acute chronic disease mgmt/transitional care Acute
[2018-05-09] MEDS: PRESERVISION AREDS2 FORMULA EYE VIT 1 EACH PO SCH (12:16)
[2018-05-09] MEDS: CHOLECALCIFEROL VIT D3 2,000 UNITS TAB/CAP PO SCH (12:16)
--- NOTE | 2018-05-09 13:55 | PDHPUP ---
History & Physical Update H&P update statement: This history and physical update is based on an assessment of the patient which was completed after admission or registration (within 24 hours), but prior to the surgery/procedure. ARF Plan for Temp HD catheter placement H&P update: H&P reviewed & patient examined, no change in patient's condition since H&P completed
--- NOTE | 2018-05-09 13:59 | PDRADPN ---
Radiology Procedure Note Date of Procedure: 05/09/18 Radiologist: Aydin Carter Anesthesia: Local (Specify) Pre-op Diagnosis: ARF Post-op Diagnosis: ARF Indication: ARF Procedure: Temp HD catheter Finding(s): Patent right IJ. Temp HD catheter ok to use. Inf/Abcess present in the surg proc area at time of surgery?: No
--- NOTE | 2018-05-09 17:25 | HOSPPROG ---
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 from outside hospital, ongoing antibiotic therapy * Anemia, uncertain chronicity, probably multifactorial with renal disease and recent surgery, infection as causes CHRONIC DIAGNOSES: * Obstructive sleep apnea on CPAP at home * Pulmonary hypertension * Chronic paroxysmal atrial fibrillation currently is in sinus rhythm * Coronary artery disease * Diabetes mellitus type 2 * Chronic hypertension * History of ovarian cancer * Chronic pain syndrome * Macular degeneration PLANS: * dialysis cath placed today * to begin dialysis tonight * She had many ?s about dialysis, recovery potential, cause of her renal failure and role of medicines, her prior PCN allergy testing,..., I answered these to her satisfaction * Will attempt continue diuresis depending on apparent filling pressures and renal function * Avoid nephrotoxin medicines SUBJECTIVE: vitals: stable still requiring some O2 cardiac technician, 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 Exam: alert oriented looks skin febrile dry color ok overall though her right leg has some discoloration from postop hematoma resps not labored lungs diffuse fine rales heart regular abd soft nondistended nontender, bowel sounds present limbs her rate knee incision looks excellent, there is still some discoloration from postop bleeding in the leg iv site ok Lab data: White blood cell count increased to 11.9 but remains elevated further decrease in Hg to 8 BUN creatinine further increased at 50 and 3.9 Electrolytes in good range Objective: Vital Signs Temp Pulse Resp BP Pulse Ox 36.6 C 72 18 113/63 94 05/09/18 12:21 05/09/18 12:21 05/09/18 12:21 05/09/18 12:21 05/09/18 12:21 Laboratory Results 05/09/18 06:30 05/09/18 06:30 05/08/18 05/09/18 05/10/18 06:59 06:59 06:59 Intake Total 1500 Output Total 100 130 125 Balance -100 1370 -125 - Time Spent With Patient Time Spent with Patient: greater than 35 minutes Time Spent with Patient: Greater than 35 minutes spent on this patients care, greater than 50% of time spent counseling, educating, and coordinating care regarding the above mentioned plan. ICD10 Worksheet Patient Problems: Problems Problem Status Onset Hypoxia Acute Pulmonary edema Acute Shortness of breath Acute Diarrhea Acute chronic disease mgmt/transitional care Acute
[2018-05-09] MEDS ORDERED: ROSUVASTATIN CALCIUM 20 MG TAB PO SCH (18:00)
[2018-05-09 18:32] LABS: HEPATITIS B CORE AB IGM NEGATIVE (NEGATIVE); HEPATITIS B SURFACE ANTIGEN NEGATIVE (NEGATIVE)
[2018-05-10] MEDS: APIXABAN 5 MG TAB PO SCH ×3 (00:36→20:30)
[2018-05-10] MEDS: traMADol 50 MG TAB PO SCH ×2 (00:36→20:32)
[2018-05-10] MEDS: METOPROLOL SUCCINATE XR 50 MG TAB PO SCH ×3 (00:36→17:36)
[2018-05-10] MEDS: SENNOSIDES/DOCUSATE SODIUM TAB PO SCH ×3 (00:38→20:32)
[2018-05-10] MEDS: DRONEDARONE HCL 400 MG TAB PO SCH ×3 (00:40→17:37)
[2018-05-10] MEDS ORDERED: HEPARIN 50,000 UNIT/10 ML VIAL DIAL ONE (02:10)
[2018-05-10 05:51] LABS: PLATELET COUNT 173 10^3/uL (150-400)
[2018-05-10 06:09] LABS: CREATINE KINASE 33 IU/L (0-156)
--- NOTE | 2018-05-10 11:10 | PCMIDPN ---
Assessment/Plan: # RICK - interstitial nephritis or ATN from NSAID, UOP seems to be increasing, underwent first HD yesterday. Patient deferring biopsy at this point so may never know etiology therefore will probably have to avoid PCN class due to high concern for AIN. I updated Allergy tab. # Enterococcal Septic R TKA: plan to complete therapy with daptomycin to avoid nephrotoxins --if gets daily HD will need daily daptomycin, discussed with pharmacy and will adjust based on decisions from renal --dose Daptomycin after HD, CK normal today; stop date 06/14/18 --ID follow in discharge tab, but ID will continue to see patient daily to adjust dosing as needed # Loose stools: did have laxative yesterday. If continues may have to consider checking Cdiff, discussed w patient ddx, will see trajectory of diarrhea at this point --hold off on Cdiff testing unless diarrhea worsens # low grade fever at admit: I had some concern for PICC line infection but cx negative to date # Bacteruria: would not treat Ecoli at this point meds daptomycin 450mg IV q48h #3 micro 05/08 blood cx (2): NGTD 05/08 UCx 20K E coli Subjective: no c/o related to R knee 2 loose, urgent stools this AM, no abdominal pain Objective: Vital Signs Temp Pulse Resp BP Pulse Ox 37.2 C 82 16 129/87 H 90 L 05/10/18 07:50 05/10/18 07:50 05/10/18 07:50 05/10/18 07:50 05/10/18 07:50 Microbiology 05/08/18 14:45 Urine Culture - Final Urine,Clean Catch Escherichia Coli Laboratory Results 05/10/18 05:35 05/10/18 05:35 05/09/18 05/10/18 05/11/18 05:59 05:59 05:59 Intake Total 1500 1250 Output Total 230 2050 650 Balance 1270 -800 -650 C-Reactive Protein 60.7 mg/L (<10.0) H 05/08/18 14:00 Laboratory Tests 05/10/18 05:35 Creatine Kinase 33 Gen: pleasant nontoxic woman NAD O/p clear MMM CV: RRR no murmur Chest: crackles resolved, breathing easy Abd: soft NT R Knee incision healing well, mild bruising, mild edema LUE PICC w associated bruising - Time Spent With Patient Time Spent with Patient: greater than 35 minutes Time Spent with Patient: Greater than 35 minutes spent on this patients care, greater than 50% of time spent counseling, educating, and coordinating care regarding the above mentioned plan. ICD10 Worksheet Patient Problems: Problems Problem Status Onset Hypoxia Acute Pulmonary edema Acute Shortness of breath Acute Diarrhea Acute chronic disease mgmt/transitional care Acute
--- NOTE | 2018-05-10 12:40 | ASMTCMCOM ---
CM Note CM Note Notes: PT is recommending home health care for the patient. She is currently an open client of [facility] who has done her IV ABX in the past. Aaron Heredia is the contact with [facility] at [phone]. Patient had a dialysis cath placed yesterday and was to start dialysis last evening. Patient is still needing O2 and monitor tech. CM will follow. Date Signed: 05/10/2018 12:39 PM Electronically Signed By:Kassi Argueta LCSW
--- NOTE | 2018-05-10 14:04 | SOAPPROG ---
SOAP Progress Note Assessment/Plan: Assessment: Oliguric RICK, seems temporally related to IV ABX, probably interstitial nephritis +/- ATN (meloxicam) seen on HD today dialysis going fine lytes ok volume OK Plan: counseled regarding need for dialysis and its indications counseled regarding possible need for kidney biopsy counseled regarding complications of biopsy including: bleeding infection gross hematuria need for blood transfusion need for radiologic or surgical intervention for bleeding need for removal of a damaged kidney possibility of counseled that Iris is at increased risk of bleeding due to her Eliquis would need to be off of anticoagulation for at least 2 days prior to and 2-3 days after the biopsy (total of 5-6 days) would have some increased risk of thrombosis/stroke while off of the anticoagulation Iris is not interested in a biopsy at this point We will have IR place temp HD cath and started HD 05/09/17, seen on HD today counseled Iris that she has a high likely hayes of recovering her renal function in the next 90 days or so, UOP today was excellent at 2.1 L Follow lytes vol and renal function, hoping for renal recovery soon 05/09/18 10:30 05/09/18 10:44 05/10/18 14:01 Subjective: spirits good tolerating HD family with her no cp sob nausea or vomiting slept fine energy good Objective: Vital Signs Temp Pulse Resp BP Pulse Ox 37.2 C 66 14 118/66 95 05/10/18 11:52 05/10/18 11:52 05/10/18 11:52 05/10/18 11:52 05/10/18 11:52 Microbiology 05/08/18 14:45 Urine Culture - Final Urine,Clean Catch Escherichia Coli Laboratory Results 05/10/18 05:35 05/10/18 05:35 05/09/18 05/10/18 05/11/18 05:59 05:59 05:59 Intake Total 1500 1250 Output Total 230 2050 650 Balance 1270 -800 -650 Physical Exam - Physical Exam General Appearance: alert Neck: normal inspection Respiratory: No rhonchi, No wheezing, No pleural rub Cardiac/Chest: regular rate, rhythm, edema, No friction rub Abdomen: normal bowel sounds, non-tender, soft Extremities: pedal edema Neuro/Psych: alert, normal mood/affect, oriented x 3 ICD10 Worksheet Patient Problems: Problems Problem Status Onset Hypoxia Acute Pulmonary edema Acute Shortness of breath Acute Diarrhea Acute chronic disease mgmt/transitional care Acute
--- NOTE | 2018-05-10 14:06 | HOSPPROG ---
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 from outside hospital, ongoing antibiotic therapy * Anemia, uncertain chronicity, probably multifactorial with renal disease and recent surgery, infection as causes CHRONIC DIAGNOSES: * Obstructive sleep apnea on CPAP at home * Pulmonary hypertension * Chronic paroxysmal atrial fibrillation currently is in sinus rhythm * Coronary artery disease * Diabetes mellitus type 2 * Chronic hypertension * History of ovarian cancer * Chronic pain syndrome * Macular degeneration PLANS: * continue dialysis; incerased urine out encouraging, reviewed w Dr Lutz, dialyse again today and follow over 3 day weekend * continue daptomycin * Avoid nephrotoxin medicines * increase activity * follow urine output, lytes, creat, sugars, temps closely SUBJECTIVE: vitals: remain stable on dialysis still requiring some O2 is beginning to make more urine, 2L per day! 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 Exam: alert oriented looks more relaxed skin febrile dry color ok resps not labored lungs diffuse fine rales heart regular abd soft nondistended nontender, bowel sounds present limbs her rate knee incision looks excellent iv site ok Lab data: lytes and anemia stable wbc unchanged Objective: Vital Signs Temp Pulse Resp BP Pulse Ox 37.2 C 66 14 118/66 95 05/10/18 11:52 05/10/18 11:52 05/10/18 11:52 05/10/18 11:52 05/10/18 11:52 Microbiology 05/08/18 14:45 Urine Culture - Final Urine,Clean Catch Escherichia Coli Laboratory Results 05/10/18 05:35 05/10/18 05:35 05/09/18 05/10/18 05/11/18 06:59 06:59 06:59 Intake Total 1500 1250 Output Total 130 2050 650 Balance 1370 -800 -650 - Time Spent With Patient Time Spent with Patient: greater than 35 minutes Time Spent with Patient: Greater than 35 minutes spent on this patients care, greater than 50% of time spent counseling, educating, and coordinating care regarding the above mentioned plan. ICD10 Worksheet Patient Problems: Problems Problem Status Onset Hypoxia Acute Pulmonary edema Acute Shortness of breath Acute Diarrhea Acute chronic disease mgmt/transitional care Acute
[2018-05-10] MEDS ORDERED: HEPARIN 50,000 UNIT/10 ML VIAL ONE (17:29)
[2018-05-10] MEDS: DAPTOmycin 450 MG in NS 100 ML IV SCH ×2 (17:34→18:33)
[2018-05-10] MEDS: PRESERVISION AREDS2 FORMULA EYE VIT 1 EACH PO SCH (17:35)
[2018-05-10] MEDS: CHOLECALCIFEROL VIT D3 2,000 UNITS TAB/CAP PO SCH (17:40)
[2018-05-11 05:33] LABS: PLATELET COUNT 222 10^3/uL (150-400)
[2018-05-11] MEDS ORDERED: CANN-EASE 2 GM TUBE TP PRN (08:20)
[2018-05-11] MEDS: APIXABAN 5 MG TAB PO SCH ×2 (12:24→23:56)
[2018-05-11] MEDS: METOPROLOL SUCCINATE XR 50 MG TAB PO SCH ×2 (12:25→23:56)
[2018-05-11] MEDS: CHOLECALCIFEROL VIT D3 2,000 UNITS TAB/CAP PO SCH (12:26)
[2018-05-11] MEDS: DRONEDARONE HCL 400 MG TAB PO SCH ×2 (12:26→23:56)
--- NOTE | 2018-05-11 13:11 | PCMIDPN ---
Assessment/Plan: Assessment: Enterococcus infection of the right TKA. Patient had a primary could change last month. Biopsies of tissue at time of primary exchange revealed the infection. Currently on a 6 week course post surgery. The initial choice of agent, ampicillin caused acute kidney injury. She is continuing with daily dialysis today as a result. Due to her ongoing daily dialysis she is receiving daptomycin daily. Once the dialysis goes to every other day or stops for observation she should move back to Q 48 hr dosing. Plan: 1. Continue IV daptomycin 450 mg daily while she is on hemodialysis daily. 2. Plan to decrease antibiotic frequency once patient is removed from dialysis. 3. Continue to monitor laboratories that will help us decide of her kidney function is stable or still suffering from insult from penicillin. 05/11/18 13:08 Subjective: Patient is resting comfortably in the dialysis room. She is feeling well. Denies any new complaint. No fevers or chills. Objective: Daptomycin 450 mg IV daily. Vital Signs Temp Pulse Resp BP Pulse Ox 36.7 C 79 14 132/64 H 95 05/11/18 12:34 05/11/18 12:34 05/11/18 12:34 05/11/18 12:34 05/11/18 12:34 Microbiology 05/08/18 14:45 Urine Culture - Final Urine,Clean Catch Escherichia Coli Laboratory Results 05/11/18 04:25 05/11/18 04:25 05/10/18 05/11/18 05/12/18 05:59 05:59 05:59 Intake Total 1250 350 Output Total 2050 2700 200 Balance -800 -2350 -200 C-Reactive Protein 60.7 mg/L (<10.0) H 05/08/18 14:00 - Physical Exam General Appearance: WD/WN, alert, no apparent distress, non-toxic Respiratory: lungs clear, normal breath sounds, No respiratory distress Cardiac/Chest: regular rate, rhythm, No tachycardia Extremities: non-tender, normal inspection Skin: normal color, warm/dry, No rash Neuro/Psych: alert, normal mood/affect, oriented x 3 ICD10 Worksheet Patient Problems: Problems Problem Status Onset Hypoxia Acute Pulmonary edema Acute Shortness of breath Acute Diarrhea Acute chronic disease mgmt/transitional care Acute
[2018-05-11] MEDS: ACETAMINOPHEN 325 MG TAB PO PRN (15:01)
--- NOTE | 2018-05-11 15:58 | SOAPPROG ---
SOAP Progress Note Assessment/Plan: Assessment: RICK: likely AIN in setting of abx +/- ATN, also had meloxicam. - HD done past two days and today. - She is now nonoliguric with large UOP, may be recovering. - Will hold off on dialysis this weekend unless there is an urgent indication. - Will continue to monitor for renal recovery. - Avoid hypotension and nephrotoxins. HTN: Bp ok on current meds. Hyponatremia: modulated on HD, will continue to monitor. Subjective: No acute events overnight. Pt had HD #3 today, tolerated well. She has no complaints today. Objective: Vital Signs Temp Pulse Resp BP Pulse Ox 36.7 C 79 14 132/64 H 95 05/11/18 12:34 05/11/18 12:34 05/11/18 12:34 05/11/18 12:34 05/11/18 12:34 Laboratory Results 05/11/18 04:25 05/11/18 04:25 05/10/18 05/11/18 05/12/18 05:59 05:59 05:59 Intake Total 1250 350 Output Total 2050 2700 500 Balance -800 -2350 -500 General: alert and oriented, no acute distress Eyes: EOMI, PERRL OP: Clear CV: RRR Resp: nonlabored respirations Abd: Soft, NT/ND Ext: trace edema BLE Neuro: CN II-XII grossly intact, no asterixis Psych: cooperative Access: RIJ temp cath ICD10 Worksheet Patient Problems: Problems Problem Status Onset Hypoxia Acute Pulmonary edema Acute Shortness of breath Acute Diarrhea Acute chronic disease mgmt/transitional care Acute
--- NOTE | 2018-05-11 16:11 | HOSPPROG ---
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 from outside hospital, ongoing antibiotic therapy -using dapto due to renal dz * Anemia, uncertain chronicity, probably multifactorial with renal disease and recent surgery, infection as causes CHRONIC DIAGNOSES: * Obstructive sleep apnea on CPAP at home * Pulmonary hypertension * Chronic paroxysmal atrial fibrillation currently is in sinus rhythm * Coronary artery disease, stable here * Diabetes mellitus type 2, stable here * Chronic hypertension * History of ovarian cancer * Chronic pain syndrome * Macular degeneration PLANS: * observe off dialysis, reasses monday or sooner if decompensates * continue daptomycin * Avoid nephrotoxin medicines * increase activity * follow urine output, lytes, creat, sugars, temps closely SUBJECTIVE: vitals: remain stable on dialysis still requiring some O2 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, 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 Exam: alert oriented relaxed skin warm dry color ok resps not labored lungs diffuse less rales but still present heart regular abd soft nondistended nontender, bowel sounds present limbs her R knee incision looks excellent iv site ok Lab data: wbc better at 8k stable anemia lytes ok, CO2 good, creat down w dialysis Objective: Vital Signs Temp Pulse Resp BP Pulse Ox 36.7 C 79 14 132/64 H 95 05/11/18 12:34 05/11/18 12:34 05/11/18 12:34 05/11/18 12:34 05/11/18 12:34 Laboratory Results 05/11/18 04:25 05/11/18 04:25 05/10/18 05/11/18 05/12/18 06:59 06:59 06:59 Intake Total 1250 350 Output Total 2049 2700 500 Balance -800 -1150 -526 - Time Spent With Patient Time Spent with Patient: greater than 35 minutes Time Spent with Patient: Greater than 35 minutes spent on this patients care, greater than 50% of time spent counseling, educating, and coordinating care regarding the above mentioned plan. ICD10 Worksheet Patient Problems: Problems Problem Status Onset Hypoxia Acute Pulmonary edema Acute Shortness of breath Acute Diarrhea Acute chronic disease mgmt/transitional care Acute
[2018-05-11] MEDS: DAPTOmycin 450 MG in NS 100 ML IV SCH (18:03)
[2018-05-11] MEDS: PRESERVISION AREDS2 FORMULA EYE VIT 1 EACH PO SCH (18:04)
[2018-05-11] MEDS: SENNOSIDES/DOCUSATE SODIUM TAB PO SCH (18:04)
[2018-05-12] MEDS: SENNOSIDES/DOCUSATE SODIUM TAB PO SCH ×3 (00:06→23:37)
[2018-05-12] MEDS: traMADol 50 MG TAB PO SCH ×2 (00:06→23:37)
[2018-05-12 05:10] LABS: PLATELET COUNT 244 10^3/uL (150-400)
[2018-05-12] MEDS: PRESERVISION AREDS2 FORMULA EYE VIT 1 EACH PO SCH (11:33)
[2018-05-12] MEDS: CHOLECALCIFEROL VIT D3 2,000 UNITS TAB/CAP PO SCH (11:34)
--- NOTE | 2018-05-12 11:36 | SOAPPROG ---
SOAP Progress Note Assessment/Plan: Assessment/Plan: 73 y/o F with h/o CKD presented with UTI and RICK 2/ to possible ATN vs AIN. RICK: likely AIN in setting of abx +/- ATN, also had meloxicam - HD done 05/11, hold today and continue to assess daily - Continue to monitor accurate UO, appears to be recovering - Avoid nephrotoxins, abx changed HTN: BP controlled. Continue current meds. Hyponatremia: Resolved with HD. Continue to monitor. Will continue to follow, please contact if ?'s. 05/12/18 12:45 Subjective: Patient up to chair and feeling better. Got a good night sleep, wants to walk today. UO 300 this am. Objective: Vital Signs Temp Pulse Resp BP Pulse Ox 37.1 C 71 18 125/50 H 94 05/12/18 09:23 05/12/18 09:23 05/12/18 09:23 05/12/18 09:23 05/12/18 09:23 Laboratory Results 05/12/18 04:50 05/12/18 04:50 05/11/18 05/12/18 05/13/18 05:59 05:59 05:59 Intake Total 350 1360 Output Total 2700 800 Balance -2350 560 Physical Exam - Physical Exam General Appearance: alert, no apparent distress EENT: PERRL/EOMI Neck: non-tender, full range of motion, supple, other (R IJ catheter in place) Respiratory: chest non-tender, lungs clear Cardiac/Chest: regular rate, rhythm, edema Abdomen: normal bowel sounds, non-tender, soft Skin: pallor Neuro/Psych: no motor/sensory deficits, alert, normal mood/affect, oriented x 3 ICD10 Worksheet Patient Problems: Problems Problem Status Onset Hypoxia Acute Pulmonary edema Acute Shortness of breath Acute Diarrhea Acute chronic disease mgmt/transitional care Acute
[2018-05-12] MEDS: APIXABAN 5 MG TAB PO SCH ×2 (11:38→23:35)
[2018-05-12] MEDS: METOPROLOL SUCCINATE XR 50 MG TAB PO SCH ×2 (11:38→23:35)
[2018-05-12] MEDS: DRONEDARONE HCL 400 MG TAB PO SCH ×2 (11:39→23:35)
--- NOTE | 2018-05-12 11:48 | HOSPPROG ---
Hospitalist Progress Note Assessment/Plan: 73-year-old with recent left knee replacement complicated by Enterococcus infection is admitted with increasing shortness of breath and increasing swelling with decreased urine output found to have acute renal failure and acute hypoxic respiratory failure. Complains of some low back pain after a fall at home prior to admission # low back pain right paraspinal muscles will check x-ray to rule out compression fracture # acute on chronic hypoxic respiratory failure with acute pulmonary edema and chronic lung disease. Symptoms have improved with dialysis. * Continues to require supplemental oxygen # acute kidney injury with a history of chronic kidney disease stage 2 to 3. * Presume secondary to AI and from antibiotics as well as nephrotoxins ( meloxicam) * Status post dialysis x3 days May 09 through * Will hold dialysis over the weekend and watch for renal recovery. Has had improved urine output * Appreciate Nephrology consult # prostatic knee infection with Enterococcus, initially on ampicillin and now switched to daptomycin due to renal disease. * Appreciate infectious disease # anemia likely secondary to recent surgery and illness. Will monitor # obstructive sleep apnea on CPAP # pulmonary hypertension # paroxysmal atrial fibrillation currently in sinus rhythm * On Multaq and beta-rosalba * Anticoagulated with Eliquis # coronary artery disease, asymptomatic on statin # type 2 diabetes, continue to monitor blood sugars # hypertension, controlled # history of ovarian cancer Subjective: Patient new to me and chart reviewed. Slept well overnight and is feeling better. Denies any significant chest pain or shortness of breath but does desaturate with exertion. Objective: Vital Signs Temp Pulse Resp BP Pulse Ox 36.6 C 70 20 134/59 H 97 05/12/18 11:43 05/12/18 11:43 05/12/18 11:43 05/12/18 11:43 05/12/18 11:43 Laboratory Results 05/12/18 04:50 05/12/18 04:50 05/11/18 05/12/18 05/13/18 05:59 05:59 05:59 Intake Total 350 1360 Output Total 2700 800 Balance -2350 560 - Physical Exam Constitutional: no apparent distress, obese Eyes: PERRL, EOMI Ears, Nose, Mouth, Throat: moist mucous membranes Cardiovascular: regular rate and rhythym Respiratory: no respiratory distress, clear to auscultation Gastrointestinal: soft, non-tender abdomen Genitourinary: No farley in urethra Skin: warm, normal color Musculoskeletal: generalized weakness, other (Mild pain right paraspinal L5) Neurologic: AAOx3 Psychiatric: interacting appropriately, not anxious ICD10 Worksheet Patient Problems: Problems Problem Status Onset Hypoxia Acute Pulmonary edema Acute Shortness of breath Acute Diarrhea Acute chronic disease mgmt/transitional care Acute
[2018-05-12] MEDS ORDERED: METHOCARBAMOL 750 MG TAB PO PRN (11:56)
[2018-05-12] MEDS ORDERED: HEPARIN 50,000 UNIT/10 ML VIAL ONE (13:27)
--- NOTE | 2018-05-12 14:56 | PCMIDPN ---
Assessment/Plan: 1. Enterococcal septic arthritis right TKA: Stable on daptomycin, which we will continue daily for now, even though hemodialysis is on hold over the weekend. Serum creatinine is quite stable. PICC dressing change tomorrow, as this was due on . No other new recommendations at this point in time. Repeat CK May 17. Stop date as outlined by Dr. Colvin, June 14. 2. Acute kidney injury: Stable. [place] possibly secondary to AIN from ampicillin. Hemodialysis on hold over the weekend to see what happens with her kidney function. Otherwise stable. 05/12/18 14:55 Subjective: Eating a hamburger. No real complaints. Worried about her PICC dressing needing to be changed, as it was supposed to be changed on . Objective: Vital Signs Daptomycin 450 mg daily day 5, stop date June 14 No fevers Temp Pulse Resp BP Pulse Ox 36.6 C 70 20 134/59 H 81 L 05/12/18 11:43 05/12/18 11:43 05/12/18 11:43 05/12/18 11:43 05/12/18 12:26 Laboratory Results 05/12/18 04:50 05/12/18 04:50 05/11/18 05/12/18 05/13/18 05:59 05:59 05:59 Intake Total 350 1360 450 Output Total 2700 800 200 Balance -2350 560 250 C-Reactive Protein 60.7 mg/L (<10.0) H 05/08/18 14:00 - Physical Exam General Appearance: alert, no apparent distress EENT: No scleral icterus, No thrush Respiratory: lungs clear Extremities: other (Right knee: Steri-Strips in place. No erythema, warmth in or swelling. Some ecchymoses/ecchymotic streaking on her pretibial area right lower extremity. PICC line left upper extremity looks fine. Hemodialysis catheter in her right neck) Skin: No rash ICD10 Worksheet Patient Problems: Problems Problem Status Onset Hypoxia Acute Pulmonary edema Acute Renal insufficiency Acute Shortness of breath Acute Diarrhea Acute chronic disease mgmt/transitional care Acute
[2018-05-12] MEDS: DAPTOmycin 450 MG in NS 100 ML IV SCH (17:49)
[2018-05-13 05:32] LABS: PLATELET COUNT 222 10^3/uL (150-400)
[2018-05-13] MEDS: PRESERVISION AREDS2 FORMULA EYE VIT 1 EACH PO SCH (10:50)
[2018-05-13] MEDS: SENNOSIDES/DOCUSATE SODIUM TAB PO SCH ×2 (10:50→23:01)
[2018-05-13] MEDS: CHOLECALCIFEROL VIT D3 2,000 UNITS TAB/CAP PO SCH (10:50)
[2018-05-13] MEDS: METOPROLOL SUCCINATE XR 50 MG TAB PO SCH ×2 (11:26→22:58)
[2018-05-13] MEDS: DRONEDARONE HCL 400 MG TAB PO SCH (11:27)
[2018-05-13] MEDS: APIXABAN 5 MG TAB PO SCH ×2 (11:27→22:57)
--- NOTE | 2018-05-13 12:40 | SOAPPROG ---
[facility] Progress Note Assessment/Plan: Assessment/Plan: 73 y/o F with h/o CKD presented with UTI and RICK 2/ to possible ATN vs AIN. RICK: likely AIN in setting of abx +/- ATN, also had meloxicam - HD done 05/11, Cr trending down to 1.0 today on it's own - May remove HD line - Continue to monitor UO - Will obtain outpatient f/u with Dr. Bruno in 4-6 weeks, labs next week per PCP. - Avoid nephrotoxins, abx changed, ID appreciated. HTN: BP controlled. Continue home meds. Hyponatremia: Resolving. Will sign off, please contact if ?'s. 05/13/18 12:40 Subjective: UO increased to 1600ml yesterday. Patient pleased with progress. Objective: Vital Signs Temp Pulse Resp BP Pulse Ox 36.7 C 77 15 130/65 H 96 05/13/18 11:25 05/13/18 11:25 05/13/18 11:25 05/13/18 11:25 05/13/18 11:25 Laboratory Results 05/13/18 05:15 05/13/18 05:15 05/12/18 05/13/18 05/14/18 05:59 05:59 05:59 Intake Total 1360 1684 Output Total 800 1600 1000 Balance 560 84 -1000 Physical Exam - Physical Exam General Appearance: WD/WN, alert, no apparent distress EENT: PERRL/EOMI Neck: non-tender, full range of motion, supple Respiratory: chest non-tender, lungs clear, normal breath sounds Cardiac/Chest: normal peripheral pulses, regular rate, rhythm, edema Abdomen: normal bowel sounds, non-tender, soft Skin: normal color, warm/dry Extremities: normal range of motion, non-tender Neuro/Psych: no motor/sensory deficits, alert, normal mood/affect ICD10 Worksheet Patient Problems: Problems Problem Status Onset Hypoxia Acute Pulmonary edema Acute Renal insufficiency Acute Shortness of breath Acute Diarrhea Acute chronic disease mgmt/transitional care Acute
--- NOTE | 2018-05-13 14:06 | HOSPPROG ---
Hospitalist Progress Note Assessment/Plan: 73-year-old with recent left knee replacement complicated by Enterococcus infection is admitted with increasing shortness of breath and increasing swelling with decreased urine output found to have acute renal failure and acute hypoxic respiratory failure. Complains of some low back pain after a fall at home prior to admission. # prolonged QT, slightly more than in clinic (0.45) * Unclear if multaq is cleared renally and may have increased levels * discussed with Dr. 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 # low back pain with some radiation to right paraspinal muscles. Xray show compression fracture L2, L4 and unclear if acute but L4 corresponds to pain * Discussed with NS, will order fitting for back brace * Ns will see in am, pt comfortable in bed, hurts with certain movements. # acute on chronic hypoxic respiratory failure with acute pulmonary edema and chronic lung disease. Symptoms have improved with dialysis. * Continues to require supplemental oxygen. # acute kidney injury with a history of chronic kidney disease stage 2 to 3. * Presume secondary to AI and from antibiotics as well as nephrotoxins ( meloxicam) * Status post dialysis x3 days May 09 through * Renal function has improved significantly over the weekend and will likely need no further dialysis * Plan DC tomorrow # prostatic knee infection with Enterococcus, initially on ampicillin and now switched to daptomycin due to renal disease. * Appreciate infectious disease # anemia likely secondary to recent surgery and illness. Will monitor # obstructive sleep apnea on CPAP # pulmonary hypertension # paroxysmal atrial fibrillation currently in sinus rhythm * On Multaq and beta-rosalba * Anticoagulated with Eliquis # coronary artery disease, asymptomatic on statin # type 2 diabetes, continue to monitor blood sugars # hypertension, controlled # history of ovarian cancer Subjective: Patient has back pain worse when she goes to the bathroom or ambulates or in certain positions. Reluctant to wear a brace because of her knee Objective: Vital Signs Temp Pulse Resp BP Pulse Ox 36.7 C 77 15 130/65 H 96 05/13/18 11:25 05/13/18 11:25 05/13/18 11:25 05/13/18 11:25 05/13/18 11:25 Laboratory Results 05/13/18 05:15 05/13/18 05:15 05/12/18 05/13/1805/14/19 05:59 05:59 05:59 Intake Total 1360 1684 Output Total 800 1600 1000 Balance 560 84 -1000 - Physical Exam Constitutional: obese Eyes: PERRL Ears, Nose, Mouth, Throat: moist mucous membranes Cardiovascular: regular rate and rhythym Respiratory: no respiratory distress, clear to auscultation Gastrointestinal: normoactive bowel sounds, soft, non-tender abdomen Genitourinary: no bladder fullness Skin: warm Musculoskeletal: joint tenderness (Knee), generalized weakness Neurologic: AAOx3 Psychiatric: interacting appropriately ICD10 Worksheet Patient Problems: Problems Problem Status Onset Hypoxia Acute Shortness of breath Acute Pulmonary edema Acute Renal insufficiency Acute chronic disease mgmt/transitional care Acute Diarrhea Acute
[2018-05-13] MEDS: ACETAMINOPHEN 325 MG TAB PO PRN ×2 (14:19→22:58)
--- NOTE | 2018-05-13 15:30 | ASMTCMCOM ---
CM Note CM Note Notes: 05/13/2018 Case Management Note Reviewed chart, discussed with RN. Faxed updates to [facility] and [facility]. Anticipating d/c early in the week. Case Management d/c poc: [facility] with [facility] online tutor to follow. Date Signed: 05/13/2018 03:29 PM Electronically Signed By:Opal Hall RN
[2018-05-13] MEDS ORDERED: POTASSIUM CL 20 MEQ TAB PO ONE (15:39)
[2018-05-13] MEDS: DAPTOmycin 450 MG in NS 100 ML IV SCH (17:44)
[2018-05-13] MEDS: traMADol 50 MG TAB PO SCH (23:01)
[2018-05-14 06:40] LABS: PLATELET COUNT 272 10^3/uL (150-400)
--- NOTE | 2018-05-14 08:59 | PDCONSULT ---
Electrical Tester Battery Note: Neurosurgery consult: Full consult dicated L2 and L4 compression fractures seen on x-ray. 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 Brooks as well
--- NOTE | 2018-05-14 09:00 | CPEKG ---
Test Reason : OPEN Blood Pressure : / mmHG Vent. Rate : 070 BPM Atrial Rate : 070 BPM P-R Int : 224 ms QRS Dur : 087 ms QT Int : 453 ms P-R-T Axes : 068 060 003 degrees QTc Int : 489 ms Sinus rhythm Prolonged LA interval Probable left atrial enlargement Borderline prolonged QT interval Confirmed by Pierre Keene ([id number]) on 05/14/2018 8:59:59 AM Referred By: Karla Mcgrath Confirmed By:Pierre Keene
--- NOTE | 2018-05-14 09:02 | CPEKG ---
Test Reason : OPEN Blood Pressure : / mmHG Vent. Rate : 072 BPM Atrial Rate : 072 BPM P-R Int : 228 ms QRS Dur : 086 ms QT Int : 449 ms P-R-T Axes : 054 031 -02 degrees QTc Int : 492 ms Sinus rhythm Prolonged [place] interval Borderline T abnormalities, anterior leads Borderline prolonged QT interval Confirmed by Pierre Keene ([id number]) on 05/14/2018 9:02:23 AM Referred By: Karla Mcgrath Confirmed By:Pierre Keene
--- NOTE | 2018-05-14 09:36 | GCON ---
[f rep st] CONSULTATION NEUROSURGERY CONSULTATION CHIEF COMPLAINT: Back pain. HISTORY OF PRESENT ILLNESS: This is a 73-year-old female who was admitted to the hospital on 019 for a right septic knee, status post knee replacement at another hospital, as well as some other medical issues. She is currently being seen by the medicine service as well as [facility] regarding these problems, but neurosurgery services was consulted yesterday as the patient had been complaining of some acute low back pain in which a lumbar x-ray was performed and this did show age-indeterminate compression fractures at L2 and L4. The patient does state that approximately 11 d ays ago that she was at home and did have a fall in which she did not want to fall on her newly opera shivam knee so she twisted and landed on her back instead. The patient states that she has always had l ow back pain in the past from arthritis, but often wears a brace or takes Tylenol for this pain. She states that this new pain is much more acute and is in the midline and low back section, worse and r adiates to the right of her low back. She states that this more acute pain started after her fall. She denies any new numbness, tingling, pain in her legs. She denies any weakness in her legs or any new acute changes with her bowel or bladder. REVIEW OF SYSTEMS: All pertinent positive and negative review of systems are as stated in the HPI. PAST MEDICAL HISTORY: Diabetes, cardiac disease, renal disease, atrial fibrillation, chronic kidney disease, macular degeneration, hypertension, hyperlipidemia and sleep apnea. PAST SURGICAL HISTORY: Patient has a history of a right knee replacement revision on 04/29/[address] Arenas at [facility] and a prior knee replacement in [address] Short. FAMILY HISTORY: Noncontributory. SOCIAL HISTORY: She lives in [place]. She is retired. ALLERGIES: The patient is allergic to ampicillin, iodinated contrast, oral and IV dye and nitrofuran toin. OBJECTIVE: VITAL SIGNS: Blood pressure 140/61, heart rate 66, respiratory rate 14, O2 saturation is 99% on a CPAP machine on 3 L of the CPAP, temperature 36.8 degrees Celsius. CONSTITUTIONAL: The patient is alert and awake. She is oriented x3. No acute distress. She is spea jimmy fluently. HEENT: Head is normocephalic, atraumatic. Eyes: Pupils are equal and react to ligh t and accommodation. Extraocular muscles are intact. RESPIRATORY: The patient has normal work of [employer]. She currently has a CPAP machine in place. ABDOMINAL: There is no guarding or tenderness. MUSCULOSKELETAL: Patient is tender to palpation over the lower lumbar spine near the areas in questi on of the L2 and L4 compression fractures. NEUROLOGICAL: Gross neurologic motor exam: Bilateral uppe r extremities are 5/5 equal strength in all muscle groups including deltoids, biceps, triceps, wrist extensors, flexors, interossei and excellence manager and bilateral lower extremities are 5/5 equal strength in eloina driceps, hamstrings, dorsiflexion, plantar flexion and EHL. Sensation is intact over the normal derm atomal distribution of the body. Strength exam is somewhat limited due to her recent right knee arth roplasty. There is negative clonus and negative Lanza's. Cranial nerves 2-12 are grossly intact. Temperature is in the midline. Palate rises symmetrically. Accessory muscles are 5/[address] rength and sensation is intact to light touch of the face. EXTREMITIES: There are no cyanosis or yanci ma noted. LABORATORY DATA: White blood cell count 4.64, red blood cell count 3.06, hemoglobin 8.9, hematocrit 27.4, platelets 272. Sodium 137, potassium 3.5, chloride 106, carbon dioxide 26, anion gap 5, BUN 17, creatinine 0.9. Estimated GFR is greater than 60. Calcium 7.7. DIAGNOSTIC IMAGING REVIEW: A lumbar spine x-ray was reviewed and shows indeterminate age compression s of L2 and L4. ASSESSMENT/PLAN: This is a 73-year-old female who was originally admitted to the [facility] for treatm ent of her septic right knee after a knee replacement in April. The patient did have a fall around this time as well in which she has had more acute low back pain since that time. Lumbar x-rays were performed and does show compression fractures at L2 and L4. Given the patient's history of the fall as well as her correlation of pain to the areas of L2 and L4, it is likely that these compression fr actures are acute. The patient currently is neurologically intact without any other deficits in her legs and without any other bowel or bladder control. At this time, we will treat her with a LSO brac e. The nurse will call [employer] to fit this later this morning. This is to be worn whenever she is up and out of bed. I explained to the patient that she is to do no extreme twisting, bending, or lifti ng more than 5 or 10 pounds for the next several weeks. She will follow up in our office as an outpa tient in [address] Brooks with repeat x-rays of the lumbar spine to ensure that there has been no further compression of these fractures. I did tell her that she could use heat and ice as well as such Extra-Strength Tylenol for the pain. She is to call us with any questions or concerns. I did tell her that if she did not tolerate the brace that we could also consider kyphoplasty; however, she has been rather mobile still with her compression fractures in the last several days and our hope is that she is able to be treated conservatively in the brace before considering any sort of other surg ical procedure, especially in the light of her recent infection. The patient was seen as well as by Dr. Brooks this morning. Please call Neurosurgery with any questions or concerns. /[id number]/MODL
[2018-05-14] MEDS: ACETAMINOPHEN 325 MG TAB PO PRN (09:55)
[2018-05-14] MEDS: APIXABAN 5 MG TAB PO SCH (09:55)
[2018-05-14] MEDS: METOPROLOL SUCCINATE XR 50 MG TAB PO SCH (09:55)
[2018-05-14] MEDS: SENNOSIDES/DOCUSATE SODIUM TAB PO SCH (09:57)
[2018-05-14] MEDS ORDERED: POTASSIUM CL 20 MEQ TAB PO ONE (09:59)
--- NOTE | 2018-05-14 10:02 | SOAPPROG ---
SOAP Progress Note Assessment/Plan: Assessment: RICK: likely AIN in setting of abx +/- ATN, also had meloxicam. Pt had HD x2 done last week, now Cr is back to baseline at 0.9, lytes ok, volume ok. - No further need for HD, ok to remove catheter. - Avoid hypotension and nephrotoxins. - Will arrange f/u in nephrology clinic. HTN: Bp ok on current meds. Hypokalemia: will give KCl 20meq x1 today. Subjective: No acute events overnight. Pt states she has some pain in back, will be getting back brace fitted today. Objective: Vital Signs Temp Pulse Resp BP Pulse Ox 36.8 C 66 14 140/61 H 99 05/14/18 04:00 05/14/18 04:00 05/14/18 04:00 05/14/18 04:00 05/14/18 04:00 Microbiology 05/08/18 15:40 Blood Culture - Final Blood 05/08/18 14:00 Blood Culture - Final Blood Laboratory Results 05/14/18 06:15 05/14/18 06:15 05/13/18 05/14/18 05/15/18 05:59 05:59 05:59 Intake Total 1684 1135 Output Total 1600 2350 Balance 84 -1215 General: alert and oriented, no acute distress Eyes: EOMI, PERRL OP: Clear CV: RRR Resp: nonlabored respirations Abd: Soft, NT/ND Ext: trace edema RLE Neuro: CN II-XII Grossly intact, no asterixis Psych: cooperative ICD10 Worksheet Patient Problems: Problems Problem Status Onset Hypoxia Acute Pulmonary edema Acute Renal insufficiency Acute Shortness of breath Acute Diarrhea Acute chronic disease mgmt/transitional care Acute
--- NOTE | 2018-05-14 11:39 | PDCARPN ---
Cardiology Progress Note Chief Complaint: N/A Assessment/Plan: Assessment: Iris is a 73 y/o F with a history of HTN, HLP, CAD, and PAF on Multaq, Metoprolol, and Eliquis. Cardiology was consulted for a long QTc. She is s/p recent left knee replacement which was complicated by infection (Enterococcus) requiring abx. She was admitted with SOB and edema and found to have acute renal failure and acute respiratory failure. She is s/p dialysis x3 and her kidney function has remaining stable. She has a.fib once a month which typically lasts for a 24 hours. She is symptomatic complaining of a racing heart which improves after taking her next Metoprolol and Multaq dose. Plan: 1. PAF- with long QTc in the setting of Multaq. She will d/c Multaq and continue Metoprolol. She will track her symptoms and follow up with Dr. Luo in 1-2 weeks. Antiarrhythmic therapy is limited in the setting of acute renal failure. She has Imodium and Tramadol on her med list but only received a few dose of Tramadol and no Imodium. EKG in the AM to asses her QTc. Her renal function has normalized and therefore she will remain on Eliquis. Follow up with Dr. Luo in 1-2 weeks. 2. ARF- secondary to abx and Meloxicam. Improved. 3. HTN- well controlled on her current medical regimen. 4. CAD- she denies any symptoms suggestive of angina and her EKG is nonischemic. 5. valvular disease-mild to mod MR and moderate AV calcification 05/14/18 12:40 05/14/18 12:41 Subjective: She denies any CP, SOB, or palpitations. Reviewed/Discussed With: hospitalist Objective: Vital Signs (8 Hrs) Temp Pulse Resp BP Pulse Ox 05/14/18 04:00 36.8 C 66 14 140/61 H 99 Intake/Output (24 Hrs) 05/13/18 05/14/18 05/15/18 05:59 05:59 05:59 Intake Total 1684 1135 Output Total 1600 2350 Balance 84 -1215 Intake: Oral (ml) 1575 1025 IV Infused (ml) 109 110 DAPTOmycin 450 mg In Ns 109 110 100 ml @ 218 mls/hr IV DAILY@1800 [facility] Rx#: [id number] Output: Urine (ml) 1600 2350 Bedside Commode 200 Toilet 1400 2350 Other: Weight 80.2 kg 79.6 kg Number of Voids Bedside Commode 1 Toilet 2 Number of Stools Toilet 1 1 Result Diagrams: 05/14/18 06:15 05/14/18 06:15 EKG: NSR with long QTc Telemetry: janett in 05/12 rate controlled. Currently in NSR - Physical Exam Constitutional: WDWN Cardiovascular: regular rate and rhythm, systolic murmur Peripheral Pulses: 2+: dorsalis-pedis (R), dorsalis-pedis (L) Respiratory: clear to auscultate bilat, no crackles, no wheezes Skin: no edema Neurologic: AAOx3 ICD10 Worksheet Patient Problems: Problems Problem Status Onset Hypoxia Acute Pulmonary edema Acute Renal insufficiency Acute Shortness of breath Acute Diarrhea Acute chronic disease mgmt/transitional care Acute
[2018-05-14] MEDS: PRESERVISION AREDS2 FORMULA EYE VIT 1 EACH PO SCH (12:15)
[2018-05-14] MEDS: CHOLECALCIFEROL VIT D3 2,000 UNITS TAB/CAP PO SCH (12:15)
[2018-05-14 12:19] VITALS: BP 138/65
[2018-05-14] MEDS ORDERED: DAPTOmycin 500 MG in NS 100 ML IV SCH (14:36)
--- NOTE | 2018-05-14 14:38 | PDIAF ---
- Diagnosis Diagnosis: Right knee PJI with Enterococcus Code Status: Full Code - Medication Management Correction Antibiotics: Daptomycin 500mg IV daily Correction Antibiotic Stop Date: 06/15/18 Discharge Medications: electronically signed and located in the Home Medication List. PICC Care - Routine: Yes - Orders Additional Instructions: Neurosurgery instructions: L2 and l4 compression fracture Wear your LSO brace whenever you are up and out of bed You do not need to wear your brace in bed Avoid any extreme bending at the waist, twisting or lifting more than 5-10 pounds for the next 6 weeks If you have any new or worsening symptoms such as new shooting pain, weakness in your legs, give us a call [phone] Brooks with [facility] in 4 weeks with repeat x-rays of the lumbar spine (our office will order these). Call [phone] to make this appointment May take ES tylenol for pain, use heat/ ice as well. - Labs/Radiology CBC w/diff Date: 05/21/18 (Every Monday while on daptomycin) CMP Date: 05/21/18 (Every Monday while on daptomycin) CRP Date: 05/21/18 (Every Monday while on daptomycin) CPK Date: 05/21/18 (Every Monday while on daptomycin) - Follow Up Care Current Providers and Referrals: Cornelius Brooks MD [Medical Doctor] - 06/11/18 (Follow up in 4 weeks with repeat lumbar x-rays) Brea Colvin MD [Medical Doctor] - 05/22/18 3:00 pm Claudia Oshea NP [Primary Care Provider] - 05/15/18 11:00 am
--- NOTE | 2018-05-14 15:01 | PDIAF ---
- Diagnosis Diagnosis: Right knee PJI with Enterococcus Code Status: Full Code - Medication Management Fdc Antibiotics: Daptomycin 500mg IV daily Fdc Antibiotic Stop Date: 06/15/18 Discharge Medications: electronically signed and located in the Home Medication List. PICC Care - Routine: Yes - Orders Services needed: Home Care, Registered Nurse, Physical Therapy Home Care Face to Face: I certify that this patient was under my care and that I had the required [id number] encounter meeting the encounter requirements on the discharge day. My findings support the fact that the patient is homebound as defined in Home Care Face to Face Continued: CMS Chapter 7 Medicare Benefits Manual 30.1.1 , The condition of the patient is such that there exists a normal inability to leave home and consequently, leaving home would require a considerable and taxing effort. Diet Recommendation: no restrictions on diet Diet Texture: Regular Texture Diet Additional Instructions: Neurosurgery instructions: L2 and l4 compression fracture Wear your LSO brace whenever you are up and out of bed You do not need to wear your brace in bed Avoid any extreme bending at the waist, twisting or lifting more than 5-10 pounds for the next 6 weeks If you have any new or worsening symptoms such as new shooting pain, weakness in your legs, give us a call [phone] Brooks with [facility] in 4 weeks with repeat x-rays of the lumbar spine (our office will order these). Call to make this appointment May take ES tylenol for pain, use heat/ ice as well. Hold the Multaq, follow up with Dr. Luo as scheduled to discuss ongoing treatment of your AFib. In the meantime continue metoprolol. Home health care will be arranged to teach you and your family how to infuse the new antibiotic, follow up with [facility] will be arranged Follow-up with orthopedics as previously scheduled. - Labs/Radiology CBC w/diff Date: 05/21/18 (Every Monday while on daptomycin) CMP Date: 05/21/18 (Every Monday while on daptomycin) CRP Date: 05/21/18 (Every Monday while on daptomycin) CPK Date: 05/21/18 (Every Monday while on daptomycin) - Follow Up Care Current Providers and Referrals: Cornelius Brooks MD [Medical Doctor] - 06/11/18 (Follow up in 4 weeks with repeat lumbar x-rays) Brea Colvin MD [Medical Doctor] - 05/22/18 3:00 pm Claudia Oshea NP [Primary Care Provider] - 05/15/18 11:00 am
--- NOTE | 2018-05-14 15:15 | PCMIDPN ---
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 Acute kidney injury has resolved with return to normal renal function. Increase daptomycin to full dose and continue as planned for a total of 6 weeks of therapy. Continue holding rosuvastatin until daptomycin complete. 1. Acute kidney injury possibly secondary to ampicillin; resolved 2. 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 History of right prosthetic knee joint revision 04/24/2018 4. History of right total knee arthroplasty December 2016 5. History of right total ankle arthroplasty 04/25/2017 without complication 6. Diabetes mellitus, type 2 7. History of verbal penicillin allergy, not confirmed by allergy by allergy testing Plan: 1. Continue daptomycin; increase to 500 mg daily due to improvement renal function, this is just over 6 milligrams/kilogram per day 2. Check CPK weekly with CBC and BMP as outpatient 3. Discussed potential antibiotic side effects including antibiotic associated diarrhea, myositis, eosinophilic pneumonitis 4. Follow-up with outpatient infectious Disease at the [facility]. For May 22 5. Continue holding rosuvastatin until daptomycin complete Antolin Veras MD Infectious Diseases 05/14/18 15:16 Subjective: No fever or chills. Denies diarrhea, nausea, rash. Appetite improving. Ambulating without difficulty. No new concerns today. Objective: Vital Signs Temp Pulse Resp BP Pulse Ox 36.8 C 73 16 138/65 H 93 05/14/18 12:00 05/14/18 12:00 05/14/18 12:00 05/14/18 12:00 05/14/18 12:00 Microbiology 05/08/18 15:40 Blood Culture - Final Blood 05/08/18 14:00 Blood Culture - Final Blood Laboratory Results 05/14/18 06:15 05/14/18 06:15 05/13/18 05/14/18 05/15/18 05:59 05:59 05:59 Intake Total 1684 1135 Output Total 1600 2350 Balance 84 -1215 C-Reactive Protein 60.7 mg/L (<10.0) H 05/08/18 14:00 Medications Generic Name Dose Route Start Last Admin Trade Name Freq PRN Reason Stop Dose Admin Daptomycin 500 mg/ Sodium 110 mls @ 218 mls/hr 05/14/18 14:36 Chloride IV 06/11/18 17:59 DAILY@1800 [facility] Discontinued Medications Generic Name Dose Route Start Last Admin Trade Name Mikal PRN Reason Stop Dose Admin Daptomycin 450 mg/ Sodium 109 mls @ 218 mls/hr 05/12/18 18:00 05/13/18 17:44 Chloride IV 06/14/18 20:00 109 mls DAILY@1800 [facility] Laboratory Tests 05/09/18 05/12/18 05/12/18 06:30 04:50 04:50 WBC 7.61 Hgb 9.5 L Plt Count 244 Absolute Neuts (auto) 5.30 Absolute Lymphs (auto) Absolute Eos (auto) 0.05 Creatinine 3.9 H 1.3 H 05/13/18 05/13/18 05/14/18 05:15 05:15 06:15 WBC 5.45 4.64 Hgb 8.5 L 8.9 L Plt Count 222 272 Absolute Neuts (auto) 3.66 2.71 Absolute Lymphs (auto) 0.67 L 0.85 L Absolute Eos (auto) 0.11 0.15 Creatinine 1.0 05/14/18 06:15 WBC Hgb Plt Count Absolute Neuts (auto) Absolute Lymphs (auto) Absolute Eos (auto) Creatinine 0.9 - Physical Exam General Appearance: alert, no apparent distress, non-toxic EENT: No scleral icterus Skin: No rash, No erythema Neuro/Psych: alert, normal mood/affect, oriented x 3, No confused ICD10 Worksheet Patient Problems: Problems Problem Status Onset Hypoxia Acute Pulmonary edema Acute Renal insufficiency Acute Shortness of breath Acute Diarrhea Acute chronic disease mgmt/transitional care Acute
--- NOTE | 2018-05-14 15:56 | ASMTDCNOTE ---
Case Management Discharge Discharge Order Complete? Answers: No Notes: MD informed CM of discharge today Patient to Obtain Answers: via Family Medications Transportation Arranged Answers: Family/Friends Faxed Final Orders Answers: Yes Agency/Facility Transfer Answers: Yes Report Printed & Faxed to Receiving Agency Discharge Comments Notes: CM discussed discharge plan with pt. Pt is going home with [facility] RN/PT and [facility]. Pt plans to go to [facility] for ongoing infusion. MAURICIO spoke with Brittany ([phone]) at the [facility] to discuss discharge plan. CM submit discharge orders to [facility]. Pt's family to transport after tonights infusion. Date Signed: 05/14/2018 02:48 PM Electronically Signed By:CORNELIA Luu
--- NOTE | 2018-05-14 15:58 | ASDISCHSUM ---
Discharge Information Plan Status:Home with Home Health Medically Cleared to Leave: Discharge Date: D/C Disposition:Home Health Service ADT D/C Disposition:Home Health Service Projected Discharge Date:05/14/2018 11:00 AM Transportation at D/C:Family Discharge Delay Reason: Follow-Up Date:05/14/2018 11:00 AM Discharge Slot: Final Diagnosis: Placement Information Referral Type:Home Infusion Referral ID:[id number] Provider Name:Xiomara L[facility] Address 1:[address] Address 2:[facility] [address] City:[place] Selection Factors: State:[place] Referral Type:*Home Health Care Services Referral ID:[id number] Provider Name[facility] [address] [facility] [address] Address 2: City:[place] Selection Factors: State:[place] Patient Contact Information Contact Name:VIOLETTE Relationship:Son Address:[address] Work Phone: City:[place] Alternate Phone: [facility]/Zip Code:[place] [address] Email: Financial Information Financial Class:Medicare Primary Plan Desc:MEDICARE INPATIENT Primary Plan Number:[id number] Secondary Plan Desc:PINEDA/MARISA SUPPLEMENT Secondary Plan Number:[id number] Assessment Information LACE LACE Acuity / Level of Answers: Yes Care: Did the patient have an inpatient admission? Comorbidities - select Answers: Coronary Artery Disease all that apply Diabetes (uncontrolled or controlled) Moderate or severe liver or renal disease Opioid dependence / Chronic pain Other Notes: HTN; AFib; HLD # of Emergency department Answers: 1-2 visits in the last 6 months Score: 16 Date Signed: 05/08/2018 03:50 PM Electronically Signed By:Adeola Tony [facility] CM Progress Note CM Note CM Note Notes: Pt is a 73 yo M who presents with SOB and Hypoxia. ID is consulted. No therapies ordered at this time, CM to follow. Plan: TBD. Date Signed: 05/08/2018 03:55 PM Electronically Signed By:CORNELIA Luu [facility] CM Progress Note CM Note CM Note Notes: PT is recommending home health care for the patient. She is currently an open client of [facility] who has done her IV ABX in the past. Aaron Heredia is the contact with R[facility] at [phone]. Patient had a dialysis cath placed yesterday and was to start dialysis last evening. Patient is still needing O2 and child monitor. CM will follow. Date Signed: 05/10/2018 12:39 PM Electronically Signed By:Kassi Argueta LCSW BC CM Progress Note CM Note CM Note Notes: 05/13/2018 Case Management Note Reviewed chart, discussed with RN. Faxed updates to [facility] and [facility]. Anticipating d/c early in the week. Case Management d/c poc: [facility] with [facility] drop forge hand to follow. Date Signed: 05/13/2018 03:29 PM Electronically Signed By:Opal Hall RN Case Management Discharge Plan Note Case Management Discharge Discharge Order Complete? Answers: No Notes: informed CM of discharge today Patient to Obtain Answers: via Family Medications Transportation Arranged Answers: Family/Friends Faxed Final Orders Answers: Yes Agency/Facility Transfer Answers: Yes Report Printed & Faxed to Receiving Agency Discharge Comments Notes: CM discussed discharge plan with pt. Pt is going home with [facility] RN/PT and [facility]. Pt plans to go to [facility] for ongoing infusion. MAURICIO spoke with Brittany Kitchen ([phone]) at the [facility] to discuss discharge plan. CM submit discharge orders to [facility]. Pt's family to transport after tonights infusion. Date Signed: 05/14/2018 02:48 PM Electronically Signed By:CORNELIA Luu Intervention Information Intervention Type:*IM-Signed Date of Service:05/14/2018 03:42 PM Patient Type:Inpatient Staff Member:Adeola Tony Hours: Discipline: Severity: Comment:
--- NOTE | 2018-05-14 19:40 | GDS ---
[f rep st] DISCHARGE SUMMARY DIAGNOSES: 1. Infected prosthetic knee with enterococcus. Initially treated with ampicillin, causing acute yael al kidney injury and switched to daptomycin. Follow up with [facility]. 2. Acute kidney injury with a history of chronic kidney disease, presumed secondary to adverse inter action from antibiotics as well as nephrotoxins, kidney function back to normal at the time of discha rge. Did receive dialysis x3. 3. Atrial fibrillation, paroxysmal, currently on Multaq and metoprolol for rate control and rhythm c ontrol. Multaq on hold due to prolonged QT. 4. Prolonged QT interval, suspect secondary to Multaq. May be affected by decreased renal clearance due to acute kidney injury. Follow up with Dr. Luo. 5. Compression fracture noted on L1 and L3 seen by Neurosurgery. Will wear an [place] back brace and follow up with Neurosurgery. 6. Anemia, multifactorial, stable. No acute bleeding. 7. Obstructive sleep apnea, on continuous positive airway pressure. 8. Pulmonary hypertension. 9. Coronary artery disease, asymptomatic, on statin. 10. Type 2 diabetes. 11. Hypertension. 12. History of ovarian cancer. CONSULTATIONS: Include Infectious Disease, Nephrology, Cardiology, Neurosurgery. PROCEDURES DONE: 1. Bilateral lower extremity Dopplers. No evidence of DVT. 2. Renal ultrasound. 3. Dialysis catheter placement. 4. Hemodialysis x3. 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 She was initially placed on ampicillin and was admitted with increasing shortness of breath and swelling, and was found to be in acute renal failure and acute hyp oxic respiratory failure. She was admitted to the hospital. Nephrology was consulted, and she under went dialysis for 3 days for primarily renal failure and fluid overload. After ampicillin was discon tinued, her kidney function slowly improved. At the time of discharge, her creatinine is at 1.0. In fectious Disease was involved and switched her to daptomycin to continue ongoing treatment for the in fection. 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 Other issues that occurred during her hospitalization: She had a fall prior to admission. Back pain was evaluated with x-rays that confirmed a compression fracture. [facility] saw her and fitted her with a brace and will follow up with her as an outpatient. She also has a history of AFib and is on Multaq and metoprolol. Her QT interval was prolonged during her [facility] stay. Because of this, her Multaq was discontinued. She will continue on the metoprolol and f ollow up with her retirement plan counselor to reassess her need for ongoing treatment with Multaq. The rest of h er medical issues were relatively stable, and she is ready for discharge. CONDITION ON DISCHARGE: Good. She is afebrile. Vital signs are stable. Creatinine at the time of discharge is 0.9. Electrolytes are normal. FOLLOWUP: She will be discharged with home care to set up home IV antibiotics for her daptomycin. S he will follow up with [facility] for her daptomycin infusions. She will follow up with Neurosurg paula for her compression fractures. She will follow up with Dr. Luo from Cardiology for her AFib and prolonged QT. She will follow up with Orthopedics for her prosthetic knee. Total time spent with patient on day of discharge and coordination of care is 35 minutes. Copy requested to: Claudia Oshea NP /[id number]/MODL
== END 2018-05-14 20:09 | disposition home health service (06) | DRG 698 ==
LOC: UNDOADMOB 05-08 00:02 → F2W 05-08 01:01 → INTOOBSV 05-08 05:03 → F2W 05-08 05:03 → OBSVTOIN 05-08 05:03
PROVIDERS: ADMIT Family Medicine; ATTEND Internal Medicine
PROC: 02H633Z Insertion of Infusion Device into Right Atrium, Percutaneous Approach (ICD-10-PCS; principal; 2018-05-09)
PROC: 5A1D70Z Performance of Urinary Filtration, Intermittent, Less than 6 Hours Per Day (ICD-10-PCS; 2018-05-09)
DX: N14.1 Nephropathy induced by other drugs, medicaments and biological substances (principal); T36.0X5A Adverse effect of penicillins, initial encounter; T39.315A Adverse effect of propionic acid derivatives, initial encounter; J81.0 Acute pulmonary edema; E87.79 Other fluid overload; J96.21 Acute and chronic respiratory failure with hypoxia; N18.2 Chronic kidney disease, stage 2 (mild); I48.0 Paroxysmal atrial fibrillation; I45.81 Long QT syndrome; T44.7X5A Adverse effect of beta-adrenoreceptor antagonists, initial encounter; T84.53XA Infection and inflammatory reaction due to internal right knee prosthesis, initial encounter; B95.2 Enterococcus as the cause of diseases classified elsewhere; M84.48XA Pathological fracture, other site, initial encounter for fracture; W18.30XA Fall on same level, unspecified, initial encounter; D64.89 Other specified anemias; G47.33 Obstructive sleep apnea (adult) (pediatric); I27.23 Pulmonary hypertension due to lung diseases and hypoxia; I25.10 Atherosclerotic heart disease of native coronary artery without angina pectoris; E11.9 Type 2 diabetes mellitus without complications; Z79.84 Long term (current) use of oral hypoglycemic drugs; I10 Essential (primary) hypertension; E78.5 Hyperlipidemia, unspecified; H35.30 Unspecified macular degeneration; Z96.651 Presence of right artificial knee joint; Z96.661 Presence of right artificial ankle joint; Z85.43 Personal history of malignant neoplasm of ovary
CPT/HCPCS: 82435-PO; 82565-PO; 82947-PO; 84132-PO; 84295-PO; 84484-ER; 84520-PO; 85014-ER; 86705-90; 96374; 97110-GP; 97116-GP; 97161-GP; 97166-GO; 97535-GO; C1750; J0878; J1642; J1644; J1940; J2405

== ENCOUNTER → 2018-06-19 | Outpatient (CLI) | payer OTHER, MEDICARE | LOC: FIMAGING 12:09 | PROVIDERS: ATTEND Physician Assistant | DX: S32.020A Wedge compression fracture of second lumbar vertebra, initial encounter for closed fracture (principal); S32.040A Wedge compression fracture of fourth lumbar vertebra, initial encounter for closed fracture; M51.34 Other intervertebral disc degeneration, thoracic region; M51.35 Other intervertebral disc degeneration, thoracolumbar region; M51.37 Other intervertebral disc degeneration, lumbosacral region; M46.96 Unspecified inflammatory spondylopathy, lumbar region; M46.97 Unspecified inflammatory spondylopathy, lumbosacral region ==